=== PATIENT | male | born 1945 | race African-American/Black ===

== ENCOUNTER 2018-01-02 09:18 | Inpatient (IN) | payer OTHER ==
--- NOTE | 2018-01-02 10:09 | PDOC ---
History of Present Illness <anthonytomRowena - Last Filed: 01/02/18 12:58> - History of Present Illness Initial Comments: 01/02/18 10:19 The patient is a 72 year old male, with recent travel from [facility] 4 days ago, with past medical history of hypertension, hyperlipidemia, s/p aortic valve replacement and pacemaker (not on any anticoagulants) who presents to the the ED with complaints of body aches for the past 4 days. As per family member, the patient has been feeling overall weak since his travels with diffuse body aches and a strange taste in his mouth. The patient denies any lightheadedness, dizziness or syncope. Denies any fevers or chills. He additionally reports a 10 pound weight loss over the past few months. While in [facility], he was told he no longer had diabetes and was taken off of Metformin which he ultimately believes has effected his kidney function. He was also told he has anemia but did not receive blood transfusions. He denies any cough, SOB, chest pain, nausea, vomiting, diarrhea, or urinary complaints. The patients family member reports he will be setting him up with a PCP in the area tomorrow. <Sonja Andre - Last Filed: 01/02/18 13:00> - General Chief Complaint: Weakness Stated Complaint: BODY PAIN Time Seen by Provider: 01/02/18 09:46 Past History <anthonytomRowena - Last Filed: 01/02/18 12:58> - Past Medical History COPD: No Other medical history: PPM - Suicide/Smoking/Psychosocial Hx Smoking History: Never smoked Hx Alcohol Use: No Drug/Substance Use Hx: No <Sonja Andre - Last Filed: 01/02/18 13:00> - Past Medical History Allergies/Adverse Reactions: Allergies Allergy/AdvReac Type Severity Reaction Status Date / Time amlodipine Allergy Verified 01/02/18 09:33 lisinopril Allergy Swelling Verified 01/02/18 09:34 Home Medications: Ambulatory Orders Hydralazine HCl 50 mg PO TID 01/02/18 Metoprolol Succinate 25 mg PO DAILY 01/02/18 Simvastatin 20 mg PO HS 01/02/18 Valsartan 320 mg PO DAILY 01/02/18 Review of Systems - Review of Systems Comments:: 01/02/18 10:33 GENERAL/CONSTITUTIONAL: (+) weakness. No fever or chills. HEAD, EYES, EARS, NOSE AND THROAT: No change in vision. No ear pain or discharge. No sore throat. GASTROINTESTINAL: No nausea, vomiting, diarrhea or constipation. GENITOURINARY: No dysuria, frequency, or change in urination. CARDIOVASCULAR: No chest pain or shortness of breath. RESPIRATORY: No cough, wheezing, or hemoptysis. MUSCULOSKELETAL: (+) body aches. SKIN: No rash NEUROLOGIC: No headache, vertigo, loss of consciousness, or change in strength/ sensation. ENDOCRINE: (+) weight loss. No increased thirst. HEMATOLOGIC/LYMPHATIC: No anemia, easy bleeding, or history of blood clots. ALLERGIC/IMMUNOLOGIC: No hives or skin allergy. <Sonja Andre - Last Filed: 01/02/18 13:00> *Physical Exam - Vital Signs Last Vital Signs Temp Pulse Resp BP Pulse Ox 98.1 F 80 16 177/76 99 01/02/18 09:25 01/02/18 09:25 01/02/18 09:25 01/02/18 09:25 01/02/18 09:25 <Rowena Yang - Last Filed: 01/02/18 12:58> - Vital Signs Last Vital Signs Temp Pulse Resp BP Pulse Ox 98.1 F 80 16 177/76 99 01/02/18 09:25 01/02/18 09:25 01/02/18 09:25 01/02/18 09:25 01/02/18 09:25 - Physical Exam Comments: 01/02/18 10:33 GENERAL: Awake, alert, and fully oriented, in no acute distress. Frequent right facial twitch that patient states he has had since age 16 HEAD: No signs of trauma EYES: PERRLA, EOMI, sclera anicteric, conjunctiva clear ENT: Auricles normal inspection, hearing grossly normal, nares patent, oropharynx clear without exudates. Moist mucosa NECK: Normal ROM, supple, no lymphadenopathy, JVD, or masses LUNGS: Breath sounds equal, clear to auscultation bilaterally. No wheezes, and no crackles HEART: Regular rate and rhythm, normal S1 and S2, no murmurs, rubs or gallops ABDOMEN: Soft, nontender, normoactive bowel sounds. No guarding, no rebound. No masses EXTREMITIES: Normal range of motion, no edema. No clubbing or cyanosis. No cords, erythema, or tenderness NEUROLOGICAL: Normal speech, cranial nerves intact, negative pronator drift, 5/ 5 strength in all 4 extremities, normal sensation to light touch in all 4 extremities, normal cerebellar exam, normal gait, normal reflexes and tone SKIN: Warm, Dry, normal turgor, no rashes or lesions noted. <JesJavanvernon - Last Filed: 01/02/18 13:00> Heart Score/ECG Review #1 01/02/18 10:37 Twelve-lead EKG was performed and reviewed by me. Sinus rhythm with first- degree AV block, rate 74. Left axis deviation. T wave inversion in the aVL with T-wave flattening in lead 1. No previous EKGs to compare. <JesJavanvernon - Last Filed: 01/02/18 13:00> ED Treatment Course - LABORATORY CBC & Chemistry Diagram: 01/02/18 10:55 01/02/18 10:55 - RADIOLOGY Radiograph Interpretation: 01/02/18 10:32 Chest X-ray as reviewed by Dr. Hernandez reports no acute pathology. <anthonytomRowena - Last Filed: 01/02/18 12:58> - LABORATORY CBC & Chemistry Diagram: 01/02/18 10:55 01/02/18 10:55 - RADIOLOGY Radiology Studies Ordered: Category Date Time Status CHEST X-RAY PORTABLE* [RAD] Stat Radiology 01/02/18 09:56 Ordered <JesSonja - Last Filed: 01/02/18 13:00> Medical Decision Making - Medical Decision Making Phone call placed to Dr. Carli Barrera. Awaiting call back. Microblog sent to [facility]. Awaiting call back. 01/02/18 12:21 Phone call returned by Dr. Crawley and case was discussed. 01/02/18 12:43 Phone call returned by Luana Salas, case was discussed. <anthonytomRowena - Last Filed: 01/02/18 12:58> - Medical Decision Making 01/02/18 10:05 72yo M hx HTN, HL, PPM, AVR presents to the ED with generalized weakness for 4 days a/w bodyaches. Bp elevated, otherwise vs wnl. Exam with trace LE edema, otherwise unremarkable. Ddx is wide and includes but not limited to ACS vs infection vs metabolic disarray vs anemia. Plan -labs -CXR -UA -EKG -reassess Laboratory Results - last 24 hr 01/02/18 01/02/18 01/02/18 10:55 10:55 11:00 WBC 6.9 RBC 3.23 L Hgb 8.7 L Hct 26.2 L MCV 81.1 MCH 27.0 MCHC 33.2 RDW 14.3 Plt Count 112 L MPV 8.0 Absolute Neuts (auto) 4.5 Neutrophils % 64.2 Lymphocytes % 24.6 Monocytes % 9.4 Eosinophils % 1.4 Basophils % 0.4 Nucleated RBC % 0 Sodium 133 L Potassium 5.3 H Chloride 101 Carbon Dioxide 21 Anion Gap 11 BUN 32 H Creatinine 2.4 H Creat Clearance w eGFR 26.82 Random Glucose 91 Calcium 8.4 L Total Bilirubin 0.4 AST 74 H ALT 41 Alkaline Phosphatase 218 H Troponin I < 0.02 Total Protein 7.7 Albumin 3.1 L Urine Color Yellow Urine Appearance Clear Urine pH 7.0 Ur Specific [place] 1.008 Urine Protein 2+ H Urine Glucose (UA) Negative Urine Ketones Negative Urine Blood 1+ H Urine Nitrite Negative Urine Bilirubin Negative Urine Urobilinogen Negative Ur Leukocyte Esterase Negative Urine WBC (Auto) 1 Urine RBC (Auto) 1 01/02/18 12:13 Creatinine 2.4. Pt unsure of his baseline creatinine. Has no PMD, has never seen a press bucker RF may be etiology of weakness and bodyaches WIll admit to obs, c/s neuro Hospitalist microblogged for admission 01/02/18 12:[address] Crawley Recommends renal US which has been ordered Awaiting hospitalis call back 01/02/18 12:59 Case discussed with RAMYA Salas, pt admitted to obs under Dr. Hernández Case discussed in detail with admitting physician including history, physical exam and ancillary studies. Admitting physician has assumed care for the patient, will follow all pending diagnostics and will complete the evaluation and treatment. <Sonja Andre - Last Filed: 01/02/18 13:00> *DC/Admit/Observation/Transfer - Attestations Scribe Attestion: 01/02/18 10:32 Documentation prepared by Rowena Yang, acting as medical fee clerk for Sonja Andre MD. <Rowena Yang - Last Filed: 01/02/18 12:58> - Discharge Dispostion Decision to Admit order: Yes - Attestations Physician Attestion: 01/02/18 13:00 I, Dr. Sonja Andre MD, attest that this document has been prepared under my direction and personally reviewed by me in its entirety. I further attest, that it accurately reflects all work, treatment, procedures and medical decision -making performed by me. <Sonja Andre - Last Filed: 01/02/18 13:00> Diagnosis at time of Disposition: Renal failure, Weakness, Anemia - Discharge Dispostion Condition at time of disposition: Stable - Referrals Referrals: Rey Farley MD [Primary Care Provider] - - Patient Instructions - Post Discharge Activity
[2018-01-02 11:06] LABS: BASO % 0.4 % (0-2.0); EOS % 1.4 % (0-4.5); HEMATOCRIT 26.2 % (35.4-49); HEMOGLOBIN 8.7 GM/dL (11.7-16.9); LYMPH % 24.6 % (8-40); MCHC 33.2 g/dl (32.0-35.9); MEAN CELL VOLUME 81.1 fl (80-96); MONO % 9.4 % (3.8-10.2); NEUT % 64.2 % (42.8-82.8); PLATELET COUNT 112 K/MM3 (134-434); RBC 3.23 M/mm3 (4.00-5.60); RDW 14.3 % (11.9-15.9); WHITE BLOOD COUNT 6.9 K/mm3 (4.0-10.0)
[2018-01-02 11:24] LABS: URINE APPEARANCE CLEAR; URINE BILIRUBIN NEGATIVE (<2.0 mg/dL); URINE GLUCOSE (UA) NEGATIVE (NEGATIVE); URINE KETONE NEGATIVE (NEGATIVE); URINE LEUK ESTERASE NEGATIVE (NEGATIVE); URINE NITRITE NEGATIVE (NEGATIVE); URINE UROBILINOGEN NEGATIVE mg/dL (0.2-1.0)
[2018-01-02 11:26] LABS: URINE COLOR YELLOW; URINE PROTEIN 2+ (NEGATIVE)
[2018-01-02 11:55] LABS: ALBUMIN 3.1 g/dl (3.4-5.0); ANION GAP 11 (8-16); BLOOD UREA NITROGEN 32 mg/dL (7-18); CALCIUM 8.4 mg/dL (8.5-10.1); CHLORIDE 101 mmol/L (98-107); CO2 21 mmol/L (21-32); CREATININE 2.4 mg/dL (0.7-1.3); GLUCOSE,RANDOM 91 mg/dL (74-106); SGPT/ALT 41 U/L (12-78); SODIUM 133 mmol/L (136-145)
[2018-01-02 11:59] LABS: ALK PHOS 218 U/L (45-117); BILIRUBIN,TOTAL 0.4 mg/dL (0.2-1.0); TOT PROT 7.7 g/dl (6.4-8.2)
[2018-01-02 12:00] LABS: POTASSIUM 5.3 mmol/L (3.5-5.1)
[2018-01-02 12:01] LABS: SGOT/AST 74 U/L (15-37)
[2018-01-02] MEDS ORDERED: SODIUM CHLORIDE 500 ML IV STA (12:56)
[2018-01-02] MEDS ORDERED: SODIUM CHLORIDE 1,000 ML IV SCH (13:00)
--- NOTE | 2018-01-02 13:00 | HP ---
CHIEF COMPLAINT: Body aches PCP: None HISTORY OF PRESENT ILLNESS: The patient is a 72 year old male, with recent travel from [facility] 4 days ago, with past medical history of hypertension, hyperlipidemia, s/p aortic valve replacement and pacemaker (not on any anticoagulants) who presents to the the ED with complaints of body aches for the past 4 days. As per family member, the patient has been feeling overall weak since his travels with diffuse body aches and a strange taste in his mouth. The patient denies any lightheadedness, dizziness or syncope. Denies any fevers or chills. He additionally reports a 10 pound weight loss over the past few months. While in [facility], he was told he no longer had diabetes and was taken off of metformin. He was also told he has a problem with his kidneys. He denies cough, SOB, chest pain, nausea, vomiting, diarrhea, or urinary complaints. Denies fever, sweats, chills. ER course was notable for: (1) Hgb 8.7, Platelets 112k, Na 133, K 5.3 (2) BUN/Cr 32/2.4 (3) BP 177/76 Recent Travel: From [facility] four days ago PAST MEDICAL HISTORY: Hypertension Hyperlipidemia PAST SURGICAL HISTORY: Aortic valve replacement and subsequent revision surgery for leakage Permanent pacemaker (does not know reason why) Social History: Smoking: quit 1971 Alcohol: rare Drugs: never Family History: retired worker for [employer]; retired to [facility] and [employer] Allergies amlodipine Allergy (Verified 01/02/18 09:33) tendon damage heels lisinopril Allergy (Verified 01/02/18 09:34) Swelling mouth swelling HOME MEDICATIONS: Home Medications Medication Instructions Recorded Hydralazine HCl 50 mg PO TID 01/02/18 Metoprolol Succinate 25 mg PO DAILY 01/02/18 Simvastatin 20 mg PO HS 01/02/18 Valsartan 320 mg PO DAILY 01/02/18 REVIEW OF SYSTEMS CONSTITUTIONAL: +malaise Absent: fever, chills, diaphoresis, generalized weakness, loss of appetite, weight change HEENT: Absent: rhinorrhea, nasal congestion, throat pain, throat swelling, difficulty swallowing, mouth swelling, ear pain, eye pain, visual changes CARDIOVASCULAR: Absent: chest pain, syncope, palpitations, irregular heart rate, lightheadedness , peripheral edema RESPIRATORY: Absent: cough, shortness of breath, dyspnea with exertion, orthopnea, wheezing, stridor, hemoptysis GASTROINTESTINAL: Absent: abdominal pain, abdominal distension, nausea, vomiting, diarrhea, constipation, melena, hematochezia GENITOURINARY: Absent: dysuria, frequency, urgency, hesitancy, hematuria, flank pain, genital pain MUSCULOSKELETAL: +body aches Absent: myalgia, arthralgia, joint swelling, back pain, neck pain SKIN: Absent: rash, itching, pallor HEMATOLOGIC/IMMUNOLOGIC: Absent: easy bleeding, easy bruising, lymphadenopathy, frequent infections ENDOCRINE: Absent: unexplained weight gain, unexplained weight loss, heat intolerance, cold intolerance NEUROLOGIC: Absent: headache, focal weakness or paresthesias, dizziness, unsteady gait, seizure, mental status changes, bladder or bowel incontinence PSYCHIATRIC: Absent: anxiety, depression, suicidal or homicidal ideation, hallucinations. PHYSICAL EXAMINATION Vital Signs - 24 hr 01/02/18 01/02/18 09:25 10:59 Temperature 98.1 F Pulse Rate 80 Respiratory 16 Rate Blood Pressure 177/76 O2 Sat by Pulse 99 99 Oximetry (%) GENERAL: Awake, alert, and fully oriented, in no acute distress. HEAD: Normal with no signs of trauma. EYES: Pupils equal, round and reactive to light, extraocular movements intact, sclera anicteric, conjunctiva clear. No lid lag. EARS, NOSE, THROAT: Ears normal, nares patent, oropharynx clear without exudates. Moist mucous membranes. NECK: Normal range of motion, supple without lymphadenopathy, JVD, or masses. LUNGS: Breath sounds equal, clear to auscultation bilaterally. No wheezes, and no crackles. No accessory muscle use. HEART: Regular rate and rhythm, normal S1 and S2 without murmur, rub or gallop. ABDOMEN: Soft, nontender, not distended, normoactive bowel sounds, no guarding, no rebound, no masses. No hepatomegaly or splenomegaly. MUSCULOSKELETAL: Normal range of motion at all joints. No bony deformities or tenderness. No CVA tenderness. UPPER EXTREMITIES: 2+ pulses, warm, well-perfused. No cyanosis. No clubbing. No peripheral edema. LOWER EXTREMITIES: 2+ pulses, warm, well-perfused. No calf tenderness. No peripheral edema. NEUROLOGICAL: Cranial nerves II-XII intact. Normal speech. Normal gait. PSYCHIATRIC: Cooperative. Good eye contact. Appropriate mood and affect. SKIN: Warm, dry, normal turgor, no rashes or lesions noted, normal capillary refill. Laboratory Results - last 24 hr 01/02/18 01/02/18 01/02/18 10:55 10:55 11:00 WBC 6.9 RBC 3.23 L Hgb 8.7 L Hct 26.2 L MCV 81.1 MCH 27.0 MCHC 33.2 RDW 14.3 Plt Count 112 L MPV 8.0 Absolute Neuts (auto) 4.5 Neutrophils % 64.2 Lymphocytes % 24.6 Monocytes % 9.4 Eosinophils % 1.4 Basophils % 0.4 Nucleated RBC % 0 Sodium 133 L Potassium 5.3 H Chloride 101 Carbon Dioxide 21 Anion Gap 11 BUN 32 H Creatinine 2.4 H Creat Clearance w eGFR 26.82 Random Glucose 91 Calcium 8.4 L Total Bilirubin 0.4 AST 74 H ALT 41 Alkaline Phosphatase 218 H Creatine Kinase Troponin I < 0.02 Total Protein 7.7 Albumin 3.1 L Urine Color Yellow Urine Appearance Clear Urine pH 7.0 Ur Specific [place] 1.008 Urine Protein 2+ H Urine Glucose (UA) Negative Urine Ketones Negative Urine Blood 1+ H Urine Nitrite Negative Urine Bilirubin Negative Urine Urobilinogen Negative Ur Leukocyte Esterase Negative Urine WBC (Auto) 1 Urine RBC (Auto) 1 01/02/18 12:26 WBC RBC Hgb Hct MCV MCH MCHC RDW Plt Count MPV Absolute Neuts (auto) Neutrophils % Lymphocytes % Monocytes % Eosinophils % Basophils % Nucleated RBC % Sodium Potassium Chloride Carbon Dioxide Anion Gap BUN Creatinine Creat Clearance w eGFR Random Glucose Calcium Total Bilirubin AST ALT Alkaline Phosphatase Creatine Kinase 180 Troponin I Total Protein Albumin Urine Color Urine Appearance Urine pH Ur Specific [place] Urine Protein Urine Glucose (UA) Urine Ketones Urine Blood Urine Nitrite Urine Bilirubin Urine Urobilinogen Ur Leukocyte Esterase Urine WBC (Auto) Urine RBC (Auto) ASSESSMENT/PLAN: 72 year-old male, with recent travel from [place] 4 days ago, with a PMH significant for HTN, HLD, NIDDM, s/p aortic valve replacement, and s/p PPM. Placed on observation for generalized weakness and body aches x 4 days. 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 Full code. Visit type - Emergency Visit Emergency Visit: Yes ED Registration Date: 01/02/18 Care time: The patient presented to the Emergency Department on the above date and was hospitalized for further evaluation of their emergent condition. - New Patient This patient is new to me today: Yes Date on this admission: 01/02/18 - Critical Care Critical Care patient: No Hospitalist Screening - Colonoscopy Questionnaire Colonoscopy Questionnaire: Colonoscopy Questionnaire - Patient: 50 - 75 years old and never had a screening colonoscopy: Unknown History of colon or rectal polyps, or CA: No History of IBD, Crohn's disease or UC: No History of abdominal radiation therapy as a child: No - Relative: 1 with colon or rectal CA, or polyps at age 60 or younger: Unknown Colon or rectal CA diagnosed at age 45 or younger: Unknown Multiple relatives with colon or rectal CA: Unknown - Outcome: Screening Result: Negative Screen
[2018-01-02] MEDS ORDERED: HEPARIN NA (PORCINE) 5,000 UNITS/ML 1ML VIAL ONE (14:28)
[2018-01-02] MEDS ORDERED: hydrALAZINE HCL 25 MG TABLET (FP) ONE (14:28)
[2018-01-02] MEDS: metoPROLOL SUCCINATE 25 MG TAB.SR.24H (FP) PO SCH (14:51)
[2018-01-02] MEDS: hydrALAZINE HCL 50 MG TABLET (FP) PO SCH ×2 (14:51→22:30)
[2018-01-02] MEDS: HEPARIN NA (PORCINE) 5,000 UNITS/ML 1ML VIAL SQ SCH ×2 (14:51→22:30)
[2018-01-02] MEDS: INSULIN SLIDING SCALE (NOVOLOG) 1 VIAL SQ SCH ×2 (16:58→22:30)
--- NOTE | 2018-01-02 19:14 | EKG ---
Test Reason : Blood Pressure : / mmHG Vent. Rate : 074 BPM Atrial Rate : 074 BPM P-R Int : 248 ms QRS Dur : 116 ms QT Int : 418 ms P-R-T Axes : 053 -53 086 degrees QTc Int : 463 ms SINUS RHYTHM WITH 1ST DEGREE A-V BLOCK POSSIBLE LEFT ATRIAL ENLARGEMENT LEFT AXIS DEVIATION LEFT VENTRICULAR HYPERTROPHY WITH QRS WIDENING NONSPECIFIC T WAVE ABNORMALITY PROLONGED QT ABNORMAL ECG NO PREVIOUS ECGS AVAILABLE Confirmed by MD VANDANA, RACHEL ([id number]) on 01/02/2018 7:14:25 PM Referred By: Confirmed By:RACHEL ROSS MD
[2018-01-02] MEDS ORDERED: ATORVASTATIN CA 10 MG TABLET (FP) ONE (21:23)
[2018-01-02] MEDS ORDERED: PATIENT'S OWN MEDICATION (NON-FORMULARY) (Simvastatin [Simvastatin] 20 MG) PO SCH (22:00)
[2018-01-02] MEDS: ATORVASTATIN CA 10 MG TABLET (FP) PO SCH (22:30)
[2018-01-03 06:38] LABS: BASO % 0.4 % (0-2.0); EOS % 1.5 % (0-4.5); HEMATOCRIT 22.1 % (35.4-49); HEMOGLOBIN 7.6 GM/dL (11.7-16.9); LYMPH % 29.4 % (8-40); MCH 27.7 pg (25.7-33.7); MCHC 34.4 g/dl (32.0-35.9); MEAN CELL VOLUME 80.5 fl (80-96); MEAN PLT VOLUME 7.6 fl (7.5-11.1); MONO % 11.1 % (3.8-10.2); NEUT % 57.6 % (42.8-82.8); PLATELET COUNT 90 K/MM3 (134-434); RBC 2.74 M/mm3 (4.00-5.60); RDW 14.1 % (11.9-15.9); WHITE BLOOD COUNT 6.4 K/mm3 (4.0-10.0)
[2018-01-03 06:59] LABS: ALBUMIN 2.7 g/dl (3.4-5.0); ANION GAP 8 (8-16); BILIRUBIN,TOTAL 0.3 mg/dL (0.2-1.0); BLOOD UREA NITROGEN 33 mg/dL (7-18); CALCIUM 7.7 mg/dL (8.5-10.1); CHLORIDE 104 mmol/L (98-107); CO2 25 mmol/L (21-32); CREATININE 2.1 mg/dL (0.7-1.3); GLUCOSE,RANDOM 87 mg/dL (74-106); MAGNESIUM 1.8 mg/dL (1.8-2.4); PHOSPHOROUS 3.7 mg/dL (2.5-4.9); POTASSIUM 3.9 mmol/L (3.5-5.1); SGOT/AST 42 U/L (15-37); SGPT/ALT 35 U/L (12-78); SODIUM 137 mmol/L (136-145); TOT PROT 6.4 g/dl (6.4-8.2)
[2018-01-03] MEDS: HEPARIN NA (PORCINE) 5,000 UNITS/ML 1ML VIAL SQ SCH (06:59)
[2018-01-03] MEDS: hydrALAZINE HCL 50 MG TABLET (FP) PO SCH ×3 (06:59→21:59)
[2018-01-03] MEDS: INSULIN SLIDING SCALE (NOVOLOG) 1 VIAL SQ SCH ×4 (06:59→21:59)
[2018-01-03 07:00] LABS: ALK PHOS 194 U/L (45-117)
[2018-01-03] MEDS ORDERED: metoPROLOL SUCCINATE 25 MG TAB.SR.24H (FP) PO SCH (10:00)
[2018-01-03] MEDS: metoPROLOL SUCCINATE 25 MG TAB.SR.24H (FP) PO SCH (10:36)
[2018-01-03 11:22] LABS: HEMATOCRIT 27.1 % (35.4-49); MCH 27.1 pg (25.7-33.7); MCHC 33.4 g/dl (32.0-35.9); MEAN CELL VOLUME 81.2 fl (80-96); MEAN PLT VOLUME 7.6 fl (7.5-11.1); PLATELET COUNT 100 K/MM3 (134-434); RBC 3.33 M/mm3 (4.00-5.60); RDW 14.6 % (11.9-15.9); WHITE BLOOD COUNT 6.9 K/mm3 (4.0-10.0)
--- NOTE | 2018-01-03 11:24 | CON.GI ---
Consult Consult Specialty:: GI Referred by:: Hospitalist Service Reason for Consultation:: Anemia - History of Present Illness Chief Complaint: "I felt weak" History of Present Illness: 72M admitted through [facility] ER for evaluation of fatigue. He lives in [facility] and returned to ID this past as he was visiting his family. he explains that he felt fatigued, prompting his family to bring him to the ER. In the ER yesterday he was noted to have a Hgb of 8.7, repeated 7.6 this morning. He was also noted to be thrombocytopenic with platelet count of 90K. Alkaline phosphatase was elevated as well and abdominal US revealed a contracted GB ( patient was not fasting) with small amount of perihepatic ascites. The CBD and liver appeared grossly unremarkable. He cannot have an MRI/MRCP as he has a permanent pacemaker. He denies any known history of liver disease, IVDU or He denies focal GI complaints. He states having a healthy appetite. He denies recent rectal bleeding / melena or change in bopwel habits. He believes that he had an EGD/Colonoscopy in Mar 2016 or 2016 for evaluation of vomiting of blood and rectal bleeding and that they were both unrevealing. He believes that he lost 10 pounds in 6 months. He knows about having a "kidney problem". His sister has a history of colon cancer. He was on metformin and "a blood pressure medication" up until they were discontinued 10/01. Son present at bedside. - History Source History Provided By: Patient, Family Member - Past Medical History Cardio/Vascular: Yes: Other (Aortic valve disease) - Past Surgical History Past Surgical History: Yes: Permanent Pacemaker (Placed secondary to A. Fib per patient's son), Valve Replacement (Aortic valve in the : porcine jitendra that was repaired 24 hours after initial surgery with bovine tissue.) - Alcohol/Substance Use Hx Alcohol Use: No - Smoking History Smoking history: Never smoked - Social History Usual Living Arrangement: Alone (Lives in [facility]) ADL: Independent Occupation: Retired: worked for [employer] of : Other ([facility]) Came to [place]year[place] 1963 History of Recent Travel: Yes ([facility]. Returned to 12/30) Home Medications - Allergies Allergies/Adverse Reactions: Allergies Allergy/AdvReac Type Severity Reaction Status Date / Time amlodipine Allergy Verified 01/02/18 09:33 lisinopril Allergy Swelling Verified 01/02/18 09:34 - Home Medications Home Medications: Ambulatory Orders Hydralazine HCl 50 mg PO TID 01/02/18 Metoprolol Succinate 25 mg PO DAILY 01/02/18 Simvastatin 20 mg PO HS 01/02/18 Valsartan 320 mg PO DAILY 01/02/18 Family Disease History - Family Disease History Family Disease History: Other: Father (: did not have relationshio), Mother (: 87: unclear causes), Sister (2, 1 with h/o colon cancer, DM II), Son (3, healthy), Daughter (1, healthy) Review of Systems - Review of Systems Constitutional: reports: Unintentional Wgt. Loss, Weakness. denies: Chills, Diaphoresis (Denies night sweats), Fever, Loss of Appetite Cardiovascular: denies: Chest Pain, Shortness of Breath Respiratory: denies: Wheezing Gastrointestinal: denies: Abdominal Pain, Constipation, Diarrhea, Indigestion, Melena, Nausea, Rectal Bleeding, Vomiting, Vomiting Blood Genitourinary: reports: Frequency Physical Exam-GI Vital Signs: Vital Signs Temperature 99 F 01/03/18 09:06 Pulse Rate 78 01/03/18 09:06 Respiratory Rate 20 01/03/18 09:06 Blood Pressure 157/67 01/03/18 09:06 O2 Sat by Pulse Oximetry (%) 100 01/02/18 21:00 Constitutional: Yes: Calm Eyes: No: Sclera Icterus Cardiovascular: Yes: Regular Rate and Rhythm, Murmur (holosystolic murmur at the LSB/RSB) Respiratory: Yes: CTA Bilaterally Gastrointestinal Inspection: No: Distention, Scars ...Auscultate: Yes: Normoactive Bowel Sounds ...Palpate: No: Hepatomegaly, Splenomegaly, Tenderness ...Percussion: No: Tympanitic ...Rectal Exam: Yes: Other (No external lesions, no masses, scant light brown stool guaiac negative, 2+ prostate.) Edema: No (No LE edema) Neurological: Yes: Alert, Oriented, Other (right eye twitch) Labs: CBC, BMP 01/03/18 06:10 01/03/18 06:10 Hepatic Panel Total Bilirubin 0.3 mg/dL (0.2-1.0) 01/03/18 06:10 AST 42 U/L (15-37) H D 01/03/18 06:10 ALT 35 U/L (12-78) 01/03/18 06:10 Alkaline Phosphatase 194 U/L (45-117) H D 01/03/18 06:10 Albumin 2.7 g/dl (3.4-5.0) L 01/03/18 06:10 Imaging - Results X-ray: Report Reviewed Ultrasound: Report Reviewed Problem List - Problems (1) Anemia Assessment/Plan: Normocytic anemia with concomitant thrombocytopenia No known history of liver disease Guaiac negative on physical exam today without overt history of bleeding or change in bowel habits Advise: Iron studies (ordered) Hematology evaluation Did discuss possible EGD/Colonoscopy if evidence of iron deficiency and heme work-up unrevealing. We discussed potential risks of the procedures like but notlimited to bleeding, perforation requiring surgery to repair, infection and sedation medication effects all of which could be potentially life threatening. He has agreed to the procedures if they were felt to be clinically necessary. He son was present during our discussion. Please obtain records froim his Recent GI evaluation in [place] Code(s): D64.9 - ANEMIA, UNSPECIFIED Qualifiers: Anemia type: unspecified type Qualified Code(s): D64.9 - Anemia, unspecified (2) Abnormal liver function tests Assessment/Plan: Predominantly elevated alkaline phosphatase. Asymptomatic Ordered GGT Hepatitis A/B panel ordered for AM Ordered PT/INR as well as PTT Ordered CT scan of the abdomen and pelvis with PO contrast only given renal insufficiency Given enlarged prostate noted on exam plus body ache complaints, exclude bone source per primary team Code(s): R94.5 - ABNORMAL RESULTS OF LIVER FUNCTION STUDIES (3) Murmur, cardiac Assessment/Plan: Bioprosthetic AVR was multiple years prior. Uncertain of present status of aortic valve function Cardiology evaluation Will need cardiology clearance prior to any potential procedures Code(s): R01.1 - CARDIAC MURMUR, UNSPECIFIED
[2018-01-03 11:32] LABS: INR 1.12 (0.83-1.09); PROTHROMBIN TIME (PATIENT) 12.6 SEC (9.7-13.0)
[2018-01-03 11:35] LABS: ACTIVATED PTT 33.3 SECONDS (25.2-36.5)
--- NOTE | 2018-01-03 11:39 | CONSULT ---
Consult - text type - Consultation Consultation Note: Renal Consult for MO vs. CKD This is a 72 year old gentleman with Hx of Hypertension, Hyperlipidemia, CKD, Aortic Valve Replacement, PPM who presented with diffuse body aches and weakness and found to have anemia and elevated BUN/Cr. Pt reports being told in the past that he has CKD but could not say what stage. He was recently taken off Metfmorin. Denies any recent NSAID use. No recent contrast nephropathy. Has long hx of DM but has been better recently. No Hx of kidney stones. ? ARB use at home. No flank pain, hematuria, dysuria, rash, recent abx use. Making urine w /o obstructive symptoms. PMhx: as above Allergies: NKDA Family Hx: NC Social Hx: No T/A/D ROS: as per HPI Home Medications Medication Instructions Recorded Hydralazine HCl 50 mg PO TID 01/02/18 Metoprolol Succinate 25 mg PO DAILY 01/02/18 Simvastatin 20 mg PO HS 01/02/18 Valsartan 320 mg PO DAILY 01/02/18 Vital Signs Temperature 99 F 01/03/18 09:06 Pulse Rate 78 01/03/18 09:06 Respiratory Rate 20 01/03/18 09:06 Blood Pressure 157/67 01/03/18 09:06 O2 Sat by Pulse Oximetry (%) 100 01/02/18 21:00 Intake & Output 12/31/17 01/01/18 01/02/18 01/03/18 23:59 23:59 23:59 23:59 Intake Total 200 1000 Balance 200 1000 Weight 69.218 kg NAD awake and alert neck supple, no JVD, MMM RRR, + murmur CTA, no rales or wheeze soft NT/ND, no rebound or guarding no LE edema, clubbing or cyanosis No bladder distension CBC, BMP 01/03/18 10:12 01/03/18 06:10 Laboratory Tests 01/02/18 01/02/18 01/03/18 10:55 11:00 00:00 MCV Creatinine 2.4 H Calcium Phosphorus Magnesium Albumin Urine Protein 2+ H Urine Blood 1+ H Urine RBC (Auto) 1 U Random Total Protein Ur Random Sodium 103 Ur Random Urea Nitrogn Urine Creatinine JAYDE Screen 01/03/18 01/03/18 01/03/18 00:00 00:00 00:00 MCV Creatinine Calcium Phosphorus Magnesium Albumin Urine Protein Urine Blood Urine RBC (Auto) U Random Total Protein 175 H Ur Random Sodium Ur Random Urea Nitrogn 440 Urine Creatinine 59.1 JAYDE Screen 01/03/18 01/03/18 01/03/18 06:10 06:10 10:12 MCV 81.2 Creatinine 2.1 H Calcium 7.7 L Phosphorus 3.7 Magnesium 1.8 Albumin 2.7 L Urine Protein Urine Blood Urine RBC (Auto) U Random Total Protein Ur Random Sodium Ur Random Urea Nitrogn Urine Creatinine JAYDE Screen Pending Current Medications Atorvastatin Calcium (Lipitor -) 10 mg PO HS [facility] Last Admin: 01/02/18 22:30 Dose: 10 mg Hydralazine HCl (Apresoline -) 50 mg PO TID [facility] Last Admin: 01/03/18 06:59 Dose: 50 mg Sodium Chloride (Normal Saline -) 1,000 mls @ 50 mls/hr IV ASDIR [facility] Stop: 01/03/18 12:58 Last Admin: 01/02/18 15:13 Dose: 50 mls/hr Insulin Aspart (Novolog Vial Sliding Scale -) 1 vial SQ ACHS [facility]; Protocol Last Admin: 01/03/18 11:26 Dose: Not Given Metoprolol Succinate (Toprol Xl -) 25 mg PO DAILY [facility] Last Admin: 01/03/18 10:36 Dose: 25 mg 72 year old gentleman with Hx of Hypertension, Hyperlipidemia, CKD, Aortic Valve Replacement, PPM who presented with diffuse body aches and weakness and found to have anemia and elevated BUN/Cr. #Acute on Chronic Renal Insufficiency #CKD #Hypertension #Anemia #Abnormal LFT's Renal function sligly improved from Cr 2.4 to 2.1 Urine studies show subnephrotic range proteinuria and elevated FeNa and FeUrea etiology of MO unclear may be mild volume depletion in setting of signficnat underlying CKD Would continue IVF hydration for 24 hours and trend BUN/Cr hold ARB/DIURETICS Start atenolol in addition to Hydralazine for additional BP control Agree with checking JAYDE given Hydralazine use Check SPEP as well GI following Check iron studies If renal function improved can be discharged from renal perspective with outpatient follow up Thank you Dov Crawley DO
[2018-01-03] MEDS ORDERED: SODIUM CHLORIDE 1,000 ML IV SCH (13:15)
--- NOTE | 2018-01-03 16:19 | PN ---
Progress Note (short form) - Note Progress Note: Subjective: The patient was seen and examined at the bedside, he has no complaints at this time. Current Medications Generic Name Dose Route Start Last Admin Trade Name Carmen PRN Reason Stop Dose Admin Atorvastatin Calcium 10 mg 01/02/18 22:00 01/02/18 22:30 Lipitor - PO 10 mg HS LOVELY Administration Hydralazine HCl 50 mg 01/02/18 14:00 01/03/18 13:58 Apresoline - PO 50 mg TID LOVELY Administration Sodium Chloride 1,000 mls @ 83 mls/hr 01/03/18 13:15 01/03/18 13:57 Normal Saline - IV 83 mls/hr ASDIR LOVELY Administration Insulin Aspart 1 vial 01/02/18 16:30 01/03/18 11:26 Novolog Vial Sliding Scale - SQ Not Given ACHS LOVELY Protocol Metoprolol Succinate 25 mg 01/02/18 14:00 01/03/18 10:36 Toprol Xl - PO 25 mg DAILY LOVELY Administration Objective: Vital Signs Period Temp Pulse Resp BP Sys/Burnett Pulse Ox Last 24 Hr 98.4 F-99.6 F 78-83 18-20 145-187/65-91 100-100 Physical Exam: General: NAD, A&Ox3 Lungs: CTA bilaterally Heart: RRR, S1S2, +murmur Abd: Soft, non-tender, non-distended. Normoactive bowel sounds Ext: Warm, well-perfused CBCD WBC 6.9 K/mm3 (4.0-10.0) 01/03/18 10:12 RBC 3.33 M/mm3 (4.00-5.60) L 01/03/18 10:12 Hgb 9.0 GM/dL (11.7-16.9) L 01/03/18 10:12 Hct 27.1 % (35.4-49) L D 01/03/18 10:12 MCV 81.2 fl (80-96) 01/03/18 10:12 MCHC 33.4 g/dl (32.0-35.9) 01/03/18 10:12 RDW 14.6 % (11.9-15.9) 01/03/18 10:12 Plt Count 100 K/MM3 (134-434) L 01/03/18 10:12 MPV 7.6 fl (7.5-11.1) 01/03/18 10:12 CMP Sodium 137 mmol/L (136-145) 01/03/18 06:10 Potassium 3.9 mmol/L (3.5-5.1) D 01/03/18 06:10 Chloride 104 mmol/L (98-107) 01/03/18 06:10 Carbon Dioxide 25 mmol/L (21-32) 01/03/18 06:10 Anion Gap 8 (8-16) 01/03/18 06:10 BUN 33 mg/dL (7-18) H 01/03/18 06:10 Creatinine 2.1 mg/dL (0.7-1.3) H 01/03/18 06:10 Creat Clearance w eGFR 31.29 (>60) 01/03/18 06:10 Random Glucose 87 mg/dL (74-106) 01/03/18 06:10 Calcium 7.7 mg/dL (8.5-10.1) L 01/03/18 06:10 Total Bilirubin 0.3 mg/dL (0.2-1.0) 01/03/18 06:10 AST 42 U/L (15-37) H D 01/03/18 06:10 ALT 35 U/L (12-78) 01/03/18 06:10 Alkaline Phosphatase 194 U/L (45-117) H D 01/03/18 06:10 Total Protein 6.4 g/dl (6.4-8.2) 01/03/18 06:10 Albumin 2.7 g/dl (3.4-5.0) L 01/03/18 06:10 CARDIAC ENZYMES Creatine Kinase 180 IU/L (39-308) 01/02/18 12:26 Troponin I < 0.02 ng/ml (0.00-0.05) 01/02/18 10:55 Microbiology 01/02/18 14:16 Blood - Peripheral Venous Blood Culture - Preliminary NO GROWTH OBTAINED AFTER 24 HOURS, INCUBATION TO CONTINUE FOR 4 DAYS. 01/02/18 14:16 Blood - Peripheral Venous Blood Culture - Preliminary NO GROWTH OBTAINED AFTER 24 HOURS, INCUBATION TO CONTINUE FOR 4 DAYS. 01/02/18 11:00 Urine - Urine Clean Catch Urine Culture - Final NO GROWTH OBTAINED 01/02/18 16:30 Nasopharyngeal Swab Influenza Types A,B Antigen - Final 01/02/18 16:30 Nasopharyngeal Swab - Final Assessment: This is a 72 year old male with PMHx of HTN, HLD, NIDDM, s/p aortic valve replacement, PPM, who presented to the ED with generalized weakness and body aches Plan: 1) Anemia - Patient's pcp, Dr. Ely in [place] reports the patient had a recent GI bleed for which he required PRBC transfusion - F/u iron studies - Guiac negative per GI - F/u hematology consult - Appreciate GI consult: possible EDG/colonoscopy 2) Thrombocytopenia - Chronic - Labs from pcp's office show platelet of 74 on 08/05/17 - F/u hematology consult 3) Abnormal liver function tests - F/u GGT - F/u hepatitis panel - F/u CTAP 4) Enlarged prostate - Per GI evaluation - PSA 1.1 on 08/05/17 5) CKD - Patient Cr 08/05/17 was 3.[address]. Ely, he was being worked up for CKD and they were just monitoring his kidney function at this time - Cr continues to improve 2.4->2.1 - Discussed with Dr. Crawley - F/u Spep 6) DM - BGM ACHS - ISS ACHS Visit type - Emergency Visit Emergency Visit: Yes ED Registration Date: 01/02/18 Care time: The patient presented to the Emergency Department on the above date and was hospitalized for further evaluation of their emergent condition. - New Patient This patient is new to me today: Yes Date on this admission: 01/03/18 - Critical Care Critical Care patient: No
[2018-01-03] MEDS: ATORVASTATIN CA 10 MG TABLET (FP) PO SCH (21:59)
[2018-01-04 06:06] LABS: SERUM IRON SATURATION 12 % (15-55); TOTAL IRON BINDING CAPACITY 289 ug/dL (250-450); UIBC 255 ug/dL (111-343)
[2018-01-04 06:06] LABS: HEP.C VIRUS AB 0.1 s/co ratio (0.0-0.9)
[2018-01-04] MEDS: hydrALAZINE HCL 50 MG TABLET (FP) PO SCH ×3 (06:12→21:22)
[2018-01-04] MEDS: INSULIN SLIDING SCALE (NOVOLOG) 1 VIAL SQ SCH ×4 (06:12→21:22)
[2018-01-04 07:38] LABS: BASO % 0.3 % (0-2.0); EOS % 1.6 % (0-4.5); HEMOGLOBIN 7.9 GM/dL (11.7-16.9); LYMPH % 32.2 % (8-40); MCH 26.7 pg (25.7-33.7); MCHC 32.9 g/dl (32.0-35.9); MEAN PLT VOLUME 7.8 fl (7.5-11.1); MONO % 11.2 % (3.8-10.2); NEUT % 54.7 % (42.8-82.8); PLATELET COUNT 80 K/MM3 (134-434); RBC 2.96 M/mm3 (4.00-5.60); RDW 14.2 % (11.9-15.9); WHITE BLOOD COUNT 5.9 K/mm3 (4.0-10.0)
[2018-01-04 08:13] LABS: CHLORIDE 103 mmol/L (98-107); POTASSIUM 3.8 mmol/L (3.5-5.1); SODIUM 136 mmol/L (136-145)
[2018-01-04 08:57] LABS: ALBUMIN 2.8 g/dl (3.4-5.0); ALK PHOS 206 U/L (45-117); ANION GAP 9 (8-16); BILIRUBIN,TOTAL 0.4 mg/dL (0.2-1.0); BLOOD UREA NITROGEN 29 mg/dL (7-18); CALCIUM 7.6 mg/dL (8.5-10.1); CO2 24 mmol/L (21-32); CREATININE 2.2 mg/dL (0.7-1.3); GAMMA GLUTAMYL TRANSPEPTIDASE 285 U/L (5-85); GLUCOSE,RANDOM 84 mg/dL (74-106); LDH 252 U/L (87-241); PHOSPHOROUS 3.5 mg/dL (2.5-4.9); SGOT/AST 45 U/L (15-37); SGPT/ALT 37 U/L (12-78); TOT PROT 6.8 g/dl (6.4-8.2)
--- NOTE | 2018-01-04 09:45 | CONSULT ---
Consult Consult Specialty:: Hematology-oncology Reason for Consultation:: anemia with thrombocytopenia - History of Present Illness Chief Complaint: Genralized weakness History of Present Illness: 72M admitted came to hospital for generalized weakness and fatigue from 4 months. He states that weakness started in September and was admitted in [place] for the same. In [place] he was diagnosed with renal problem and anemia and was advised to follow up with director of medical services. But pamela went to [facility] and didnt follow up with director of medical services. He lives in [facility] and returned to [place] this past as he was visiting his family. He also states that he underwent colonoscopy and endoscopy about 2 years ago for melena and as per patient it was normal and Aspirin was stopped. He laso reports unintentional weight loss of 10 pounds over period of 3 months. In ER he is again found to have anemia with thrombocytopenia. Alkaline phosphatase and GGT was elevated but ultrasound is negative for choledocholithiasis and cbd size is 0.4cm. Liver and spleen are grossly unremarkable mal. Patient also states that he got HIV test in August 2017 in [facility] and it was normal ( Details not available ) Family history: Mother and father of cancer but details not available. Sister diagnosed with colon cancer. children healthy. - Past Medical History Cardio/Vascular: Yes: Hyperlipdemia, Other (Aortic valve disease) - Past Surgical History Past Surgical History: Yes: Permanent Pacemaker (Placed secondary to A. Fib ), Valve Replacement (Aortic valve in the s: porcine jitendra that was repaired 24 hours after initial surgery with bovine tissue.) - Alcohol/Substance Use Hx Alcohol Use: No - Smoking History Smoking history: Former smoker (smoked for 5 years, stopped in 1971) Have you smoked in the past 12 months: No If you are a former smoker, when did you quit?: 40 years ago - Social History Usual Living Arrangement: Alone (Lives in [facility]) ADL: Independent Occupation: Retired: worked for [employer], never been aexposed to fumes History of Recent Travel: Yes ([facility]. ) Home Medications - Allergies Allergies/Adverse Reactions: Allergies Allergy/AdvReac Type Severity Reaction Status Date / Time amlodipine Allergy Verified 01/02/18 09:33 lisinopril Allergy Swelling Verified 01/02/18 09:34 - Home Medications Home Medications: Ambulatory Orders Hydralazine HCl 50 mg PO TID 08/19/18 Metoprolol Succinate 25 mg PO DAILY 01/02/18 Simvastatin 20 mg PO HS 01/02/18 Valsartan 320 mg PO DAILY 01/02/18 Family Disease History - Family Disease History Family Disease History: Other: Father (: details not available ), Mother ( : 87: from cancer details not available ), Sister (2, 1 with h/o colon cancer, DM II), Son (3, healthy), Daughter (1, healthy) Review of Systems - Review of Systems Constitutional: reports: Lethargy, Unintentional Wgt. Loss, Weakness. denies: Chills, Diaphoresis, Fever, Loss of Appetite, Night Sweats Eyes: denies: Blind Spots, Blurred Vision, Double Vision, Recent Change in Vision HENT: denies: Difficult Swallowing, Gingival Bleeding Neck: denies: Lumps, Pain on Movement, Swollen Glands Cardiovascular: denies: Chest Pain, Palpitations, Shortness of Breath Respiratory: denies: Hemoptysis, Orthopnea, SOB Gastrointestinal: denies: Abdominal Pain, Bloating, Constipation, Diarrhea, Dysphagia, Melena, Rectal Bleeding, Vomiting Genitourinary: denies: Burning, Dysuria, Frequency, Hematuria, Testicular Mass, Testicular Pain, Testicular Swelling Musculoskeletal: denies: Back Pain, Joint Pain Neurological: denies: Change in Speech, Confusion, Dizziness, Headache Endocrine: reports: Unexplained Weight Loss Hematology/Lymphatic: denies: Easily Bruised, Excessive Bleeding Psychiatric: denies: Anxiety Physical Exam Vital Signs: Vital Signs Temperature 98.4 F 01/04/18 05:28 Pulse Rate 85 01/04/18 05:28 Respiratory Rate 20 01/04/18 05:28 Blood Pressure 143/72 01/04/18 05:28 O2 Sat by Pulse Oximetry (%) 96 01/04/18 01:00 Constitutional: Yes: Well Nourished, No Distress, Calm Eyes: Yes: WNL, Conjunctiva Clear, EOM Intact HENT: Yes: WNL, Atraumatic, Normocephalic. No: Thrush Neck: Yes: WNL, Supple, Trachea Midline. No: Lymphadenopathy Cardiovascular: Yes: Regular Rate and Rhythm, Murmur (aortic regurgitation murmur), S1, S2 Respiratory: Yes: WNL, Regular, CTA Bilaterally, Other (midline scar present, pacemaker present on right side. No axillary lymphnodes). No: Rales, Rhonchi, Wheezes Gastrointestinal: Yes: WNL, Normal Bowel Sounds. No: Distention, Palpable Mass , Splenomegaly Renal/: No: CVA Tenderness - Left, Scrotal Edema Musculoskeletal: Yes: WNL. No: Back Pain, Muscle Weakness Edema: No Psychiatric: Yes: Alert, Oriented Labs: CBC, BMP 01/04/18 06:00 01/04/18 06:00 Problem List - Problems (1) Thrombocytopenia Code(s): D69.6 - THROMBOCYTOPENIA, UNSPECIFIED (2) Anemia Code(s): D64.9 - ANEMIA, UNSPECIFIED Qualifiers: Anemia type: unspecified type Qualified Code(s): D64.9 - Anemia, unspecified (3) Renal failure Code(s): N19 - UNSPECIFIED KIDNEY FAILURE (4) Weakness Code(s): R53.1 - WEAKNESS Assessment/Plan Laboratory Tests 01/03/18 01/04/18 13:15 06:00 BUN 29 H Creatinine 2.2 H Iron 34 L TIBC 289 Iron Saturation 12 L GGT 285 H AST 45 H Alkaline Phosphatase 206 H D LD Total 252 H Albumin 2.8 L Serum Folate 34 H TSH 2.67 D Patient has Normocytic anemia with thrombocytopenia with iron studies in favour of anemia of chronic disease. CKD is also contributing to his anemia. Vitamin B12 level 234 . Corrected retic count is normal. We will order ldh, haptoglobin , hemoglobinelectrphoresis Patient albumin/ globulin ratio is reversed. work up for multiple myeloma has been initiated. We will start him on ferrous sulphate and vitamin b12. We will also order JAYDE Consider GI follow up. Consider nephrology follow up. Visit type - Emergency Visit Emergency Visit: Yes ED Registration Date: 01/02/18 Care time: The patient presented to the Emergency Department on the above date and was hospitalized for further evaluation of their emergent condition. - New Patient This patient is new to me today: Yes Date on this admission: 01/04/18 - Critical Care Critical Care patient: No
--- NOTE | 2018-01-04 09:58 | PN ---
Progress Note (short form) - Note Progress Note: Chief Complaint: Events noted, notes reviewed, generalized weakness, progressive fatigue, denies any chest pain or dyspnea History of Present Illness: Seen and examined. Full consult dictated Current Medications: Current Medications Atorvastatin Calcium (Lipitor -) 10 mg PO HS [facility] Last Admin: 01/03/18 21:59 Dose: 10 mg Hydralazine HCl (Apresoline -) 50 mg PO TID [facility] Last Admin: 01/04/18 06:12 Dose: 50 mg Sodium Chloride (Normal Saline -) 1,000 mls @ 83 mls/hr IV ASDIR [facility] Last Admin: 01/03/18 13:57 Dose: 83 mls/hr Insulin Aspart (Novolog Vial Sliding Scale -) 1 vial SQ ACHS [facility]; Protocol Last Admin: 01/04/18 06:12 Dose: Not Given Metoprolol Succinate (Toprol Xl -) 25 mg PO DAILY [facility] Last Admin: 01/03/18 10:36 Dose: 25 mg Review of Systems - Review of Systems Constitutional: reports: Weakness denies: Chills or Fever Cardiovascular: as noted above Gastrointestinal: denies: Nausea, Vomiting, Diarrhea, Constipation or Abdominal Pain Genitourinary: No symptoms reported Neurological: No symptoms reported - Objective Vital Signs: Last Vital Signs Temp Pulse Resp BP Pulse Ox 98.4 F 85 20 143/72 96 01/04/18 05:28 01/04/18 05:28 01/04/18 05:28 01/04/18 05:28 01/04/18 01:00 Intake & Output 01/01/18 01/02/18 01/03/18 01/04/18 23:59 23:59 23:59 23:59 Intake Total 200 1000 996 Balance 200 1000 996 Weight 152 lb 9.6 oz 157 lb 12.8 oz Neck: Supple negative JVD no bruit Cardiovascular: S1 S2 Regular Rate and Rhythm Grdae 2/6 SHASTA and Grade 2-3/6 Diastolic AI Murmur Respiratory: Clear to A&P Gastrointestinal: Soft Benign Normal Bowel Sounds Ext: Negative Edema Bilaterally Labs: CBC, BMP 01/04/18 06:00 01/04/18 06:00 Assessment/Plan: ASSESSMENT: 1. Progressive weakness, fatigue and tiredness referable to probable anemia etiology to be determined 2. Post AVR/bioprosthesis post operative course complicated by probable valve dehiscence requiring re-intervention 3. Physical examination consistent with significant prosthetic aortic valve regurgitation 4. Probable diastolic LV dysfunction with clinical class 0 NYHA classification LV failure 5. AV block post PPM 6. HTN 7. DM, dietary management 8. Hypercholesterolemia 9. CKD 10. Anemia and thrombocytopenia, etiology to be determined 11. Abnormal LFT's etiology to be determined PLAN: 1. Continue Toprl XL and titrate dosage as needed and as tolerated 2. Continue Hydralazine 3. Ideally Norvasc therapy to be initiated, but prior intolerance to therapy administration 4. Discontinue Lipitor, pending LFT normalization 5. Ideally should be on ASA but to be deferred pending resolution of anemia and thrombocytopenia 6. Pacemaker interrogation 7. Echocardiography for evaluation of the LV size and function and the above noted valvular pathology Above was discussed in detail with the patient Duane Boston MD
[2018-01-04] MEDS: metoPROLOL SUCCINATE 25 MG TAB.SR.24H (FP) PO SCH (10:25)
--- NOTE | 2018-01-04 11:42 | CONS ---
DATE OF CONSULTATION: 01/04/2018 REQUESTED BY: Hospitalist CHIEF COMPLAINT: Progressive weakness, cardiovascular evaluation. HISTORY OF PRESENT ILLNESS: This 72-year-old male of [place] descent of ancestry with known history of aortic valve disease post aortic valve replacement, bioprosthetic 2007, postoperative course complicated by acute aortic regurgitation most likely valve dehiscence requiring reintervention, hypertensive cardiovascular disease, diabetes mellitus, hypercholesterolemia, chronic kidney disease who presented to [facility] with progressive weakness which has been noted over the last several weeks. Patient had the above-noted open heart surgery in [place], and subsequently, he was residing in [facility]. Patient was visiting his son in [facility] when he presented to [facility] with the above-noted complaint. Patient reported dyspnea with [id number] physical exertion. Patient denied any peripheral edema. Patient denied any orthopnea or paroxysmal nocturnal dyspnea. Patient denied any chest discomfort. Patient denied any palpitations, dizziness, lightheadedness, or syncope. PAST MEDICAL HISTORY: Aortic valve disease, post aortic valve replacement bioprosthetic 2007, postoperative course complicated by reintervention for acute aortic valve regurgitation most likely related to valve dehiscence, probable diastolic LV dysfunction, hypertensive cardiovascular disease, diabetes mellitus, hypercholesterolemia, chronic kidney disease. SOCIAL HISTORY: Prior history of tobacco abuse. FAMILY HISTORY: No family history of premature coronary artery disease. ALLERGIES: LISINOPRIL IN FORM OF ANGIOEDEMA. INTOLERANCE TO AMLODIPINE THERAPY IN FORM OF PERIPHERAL EDEMA. INTOLERANCE TO ASPIRIN THERAPY IN FORM OF UPPER GASTROINTESTINAL BLEED. MEDICAL THERAPY: Currently includes Lipitor 10 mg once a day, hydralazine 50 mg 3 times a day, insulin coverage, Toprol XL 25 mg once daily. REVIEW OF SYSTEMS: Head and Neck: Denies headache, photophobia, blurring of vision. Respiratory: No cough or sputum production. Cardiovascular: As noted above. Gastrointestinal: Denies nausea, vomiting, diarrhea, abdominal discomfort. Genitourinary: No symptoms reported. PHYSICAL EXAMINATION: Vital Signs: Blood pressure 143/72 mmHg, pulse rate 85 beats per minute. Head and Neck: Pupils equal and reactive to light and accommodation. Extraocular muscles are intact. Anicteric sclerae. Negative JVD. No bruit appreciated. Chest: Clear to auscultation and percussion. Cardiovascular: S1, S2 regular. Grade 2/6 systolic ejection murmur. In addition, grade 2/6 to 3/6 diastolic murmur related to probable aortic valve regurgitation. Abdomen: Soft, benign. Normoactive bowel sounds. Extremities: Negative edema. Intact distal pulses. No calf tenderness. DIAGNOSTIC STUDIES: Electrocardiogram revealed sinus rhythm with left axis deviation, poor R-wave progression, and nonspecific ST segment and T wave abnormality. Chest x-ray report was noted. Abdominal ultrasound report was noted. CBC revealed white cell count 5.9, hemoglobin 7.9, platelet count is 80. INR 1.12. Basic metabolic profile with sodium 136, potassium 3.8, BUN of 29, creatinine 2.2. Estimated GFR 29.65. Glucose 84. Hemoglobin A1c 5.4. GGT 285. AST 45. TSH 2.67. ASSESSMENT: 1. Progressive weakness, fatigue, and tiredness referable to probable anemia, etiology of which is to be determined. 2. Post aortic valve replacement bioprosthetic postoperative course complicated by probable valve dehiscence requiring reintervention. 3. Physical examination is consistent with significant prosthetic aortic valve regurgitation. 4. Probable diastolic left ventricular dysfunction with clinical class 0 [employer] calcification left ventricular failure. 5. Hypertensive cardiovascular disease. 6. Diabetes mellitus. Dietary management. Normalize hemoglobin A1c. 7. Hypercholesterolemia. 8. Chronic kidney disease. 9. Anemia on thrombocytopenia, etiology of which is to be determined. 10. Abnormal liver function testing, etiology of which is to be determined. RECOMMENDATIONS: 1. Continuation of Toprol XL with titration of dosage as needed and as tolerated. 2. Continuation of hydralazine therapy. 3. Ideally, Norvasc therapy to be initiated but prior intolerance to therapy administration has been reported. 4. Discontinue Lipitor therapy considering the above-noted abnormal liver function testing. 5. Ideally patient should be on aspirin but to be deferred pending resolution of the above-noted anemia and thrombocytopenia. 6. Echocardiography for evaluation of left ventricular size and function and the above noted valvular pathology. Above was discussed in detail with the patient. Thank you for the kind referral. JENNY BOSE M.D. DARLEEN/[id number]
[2018-01-04] MEDS: FERROUS SO4 325 MG TABLET (FP) PO SCH (12:10)
--- NOTE | 2018-01-04 12:47 | PN ---
Progress Note (short form) - Note Progress Note: Subjective: The patient was seen and examined at the bedside, he has no complaints at this time. Current Medications Generic Name Dose Route Start Last Admin Trade Name Carmen PRN Reason Stop Dose Admin Atorvastatin Calcium 10 mg 01/02/18 22:00 01/03/18 21:59 Lipitor - PO 10 mg HS LOVELY Administration Ferrous Sulfate 325 mg 01/04/18 10:15 01/04/18 12:10 Feosol - PO 325 mg DAILY LOVELY Administration Hydralazine HCl 50 mg 01/02/18 14:00 01/04/18 06:12 Apresoline - PO 50 mg TID LOVELY Administration Sodium Chloride 1,000 mls @ 83 mls/hr 01/03/18 13:15 01/03/18 13:57 Normal Saline - IV 83 mls/hr ASDIR LOVELY Administration Insulin Aspart 1 vial 01/02/18 16:30 01/04/18 12:44 Novolog Vial Sliding Scale - SQ Not Given ACHS LOVELY Protocol Metoprolol Succinate 25 mg 01/02/18 14:00 01/04/18 10:25 Toprol Xl - PO 25 mg DAILY LOVELY Administration Objective: Vital Signs Period Temp Pulse Resp BP Sys/Burnett Pulse Ox Last 24 Hr 97.6 F-99.5 F 79-85 20-20 132-183/65-91 96-96 Physical Exam: General: NAD, A&Ox3 Lungs: CTA bilaterally Heart: RRR, S1S2, +murmur Abd: Soft, non-tender, non-distended. Normoactive bowel sounds Ext: Warm, well-perfused CBCD WBC 5.9 K/mm3 (4.0-10.0) 01/04/18 06:00 RBC 2.96 M/mm3 (4.00-5.60) L 01/04/18 06:00 Hgb 7.9 GM/dL (11.7-16.9) L 01/04/18 06:00 Hct 24.0 % (35.4-49) L 01/04/18 06:00 MCV 81.0 fl (80-96) 01/04/18 06:00 MCHC 32.9 g/dl (32.0-35.9) 01/04/18 06:00 RDW 14.2 % (11.9-15.9) 01/04/18 06:00 Plt Count 80 K/MM3 (134-434) L 01/04/18 06:00 MPV 7.8 fl (7.5-11.1) 01/04/18 06:00 CMP Sodium 136 mmol/L (136-145) 01/04/18 06:00 Potassium 3.8 mmol/L (3.5-5.1) 01/04/18 06:00 Chloride 103 mmol/L (98-107) 01/04/18 06:00 Carbon Dioxide 24 mmol/L (21-32) 01/04/18 06:00 Anion Gap 9 (8-16) 01/04/18 06:00 BUN 29 mg/dL (7-18) H 01/04/18 06:00 Creatinine 2.2 mg/dL (0.7-1.3) H 01/04/18 06:00 Creat Clearance w eGFR 29.65 (>60) 01/04/18 06:00 Random Glucose 84 mg/dL (74-106) 01/04/18 06:00 Calcium 7.6 mg/dL (8.5-10.1) L 01/04/18 06:00 Total Bilirubin 0.4 mg/dL (0.2-1.0) 01/04/18 06:00 AST 45 U/L (15-37) H 01/04/18 06:00 ALT 37 U/L (12-78) 01/04/18 06:00 Alkaline Phosphatase 206 U/L (45-117) H D 01/04/18 06:00 Total Protein 6.8 g/dl (6.4-8.2) 01/04/18 06:00 Albumin 2.8 g/dl (3.4-5.0) L 01/04/18 06:00 CARDIAC ENZYMES Creatine Kinase 180 IU/L (39-308) 01/02/18 12:26 Troponin I < 0.02 ng/ml (0.00-0.05) 01/02/18 10:55 Microbiology 01/02/18 14:16 Blood - Peripheral Venous Blood Culture - Preliminary NO GROWTH OBTAINED AFTER 24 HOURS, INCUBATION TO CONTINUE FOR 4 DAYS. 01/02/18 14:16 Blood - Peripheral Venous Blood Culture - Preliminary NO GROWTH OBTAINED AFTER 24 HOURS, INCUBATION TO CONTINUE FOR 4 DAYS. 01/02/18 11:00 Urine - Urine Clean Catch Urine Culture - Final NO GROWTH OBTAINED 01/02/18 16:30 Nasopharyngeal Swab Influenza Types A,B Antigen - Final 01/02/18 16:30 Nasopharyngeal Swab - Final Assessment: This is a 72 year old male with PMHx of HTN, HLD, NIDDM, s/p aortic valve replacement, PPM, who presented to the ED with generalized weakness and body aches Plan: 1) Anemia - Patient's pcp, Dr. Ely in [place] reports the patient had a recent GI bleed for which he required PRBC transfusion - F/u iron studies - Guiac negative per GI - Start ferrous sulfate - F/u hematology consult - Appreciate GI consult: possible EDG/colonoscopy 2) R/o multiple myeloma - MM workup per oncology 2) Thrombocytopenia - Chronic - Labs from pcp's office show platelet of 74 on 08/05/17 - F/u hematology consult 3) Abnormal liver function tests - GGT 285 - F/u hepatitis panel - F/u CTAP, performed, pending read 4) Enlarged prostate - Per GI evaluation - PSA 1.1 on 08/05/17 5) CKD - Patient Cr 08/05/17 was 3.[address] Dr. Ely, he was being worked up for CKD and they were just monitoring his kidney function at this time - Cr stable, 2.2 today - Discussed with Dr. Crawley - F/u Julio C 6) DM - BGM ACHS - ISS ACHS 7) Post AVR/bioprosthesis - Continue Toprol XL - Ideally should be on ASA, however anemia and thrombocytopenia workup ongoing, will defer starting for now 8) PPM - F/u interrogation 9) Probable diastolic LV dysfunction - F/u ECHO Visit type - Emergency Visit Emergency Visit: Yes ED Registration Date: 01/02/18 Care time: The patient presented to the Emergency Department on the above date and was hospitalized for further evaluation of their emergent condition. - New Patient This patient is new to me today: No - Critical Care Critical Care patient: No
[2018-01-04 13:23] LABS: HEMATOCRIT 24.6 % (35.4-49); HEMOGLOBIN 7.9 GM/dL (11.7-16.9); MEAN CELL VOLUME 81.4 fl (80-96); MEAN PLT VOLUME 7.8 fl (7.5-11.1); PLATELET COUNT 92 K/MM3 (134-434); RBC 3.02 M/mm3 (4.00-5.60); RDW 14.6 % (11.9-15.9); WHITE BLOOD COUNT 6.5 K/mm3 (4.0-10.0)
--- NOTE | 2018-01-04 13:29 | ECHO ---
Name: JESSICA JAMES Exam:Adult Echocardiogram Study Date: 01/04/2018 10:46 AM Age: 72 yrs Reason For Study: POST AVR WITH PROMINANT AI MURMUR Height: 69 in Weight: 157 lb BSA: 1.9 m2 MMode/2D Measurements & Calculations IVSd: 1.3 cm Ao root diam: 3.6 cm LVIDd: 5.4 cm LA dimension: 3.5 cm LVIDs: 3.5 cm LVPWd: 1.2 cm EDV(Teich): 141.9 ml TAPSE: 2.9 cm ESV(Teich): 49.7 ml RV S Efren: 14.3 cm/sec Doppler Measurements & Calculations MV E max efren: 109.2 cm/sec Ao V2 max: 302.7 cm/sec MV A max efren: 103.7 cm/sec Ao max P.7 mmHg MV E/A: 1.1 Ao V2 mean: 199.3 cm/sec MV dec time: 0.15 sec Ao mean P.0 mmHg Ao V2 VTI: 56.8 cm AI P1/2t: 209.3 msec AI max efren: 470.0 cm/sec LV V1 max P.7 mmHg AI max P.4 mmHg LV V1 mean P.1 mmHg LV V1 max: 129.8 cm/sec AI dec slope: 657.6 cm/sec2 LV V1 mean: 80.9 cm/sec LV V1 VTI: 25.6 cm MR max efren: 360.9 cm/sec TR max efren: 200.6 cm/sec MR max P.1 mmHg TR max P.1 mmHg Med Peak E' Efren: 5.6 cm/sec Med E/e': 19.6 Lat Peak E' Efren: 11.4 cm/sec Lat E/e': 9.6 Procedure A complete two-dimensional transthoracic echocardiogram was performed (2D, M-mode, Doppler and color flow Doppler). Left Ventricle There is borderline concentric left ventricular hypertrophy. The left ventricle is normal in size. Ej ection Fraction = 60%. The transmitral spectral Doppler flow pattern is suggestive of impaired LV relaxation . The left ventricular wall motion is normal. Right Ventricle There is a pacemaker lead in the right ventricle. The right ventricle is normal in size and function. Atria Normal left and right atrial size and function. Mitral Valve There is mild mitral annular calcification. There is mild mitral regurgitation. Tricuspid Valve The tricuspid valve is not well visualized, but is grossly normal. There is severe tricuspid regurgit ation. Right ventricular systolic pressure is 16 mmhg. Aortic Valve There is a bioprosthetic aortic valve. Doppler reveals an intravalvular leak from the prosthetic aort ic valve. The prosthetic aortic valve appears abnormal. Severe aortic regurgitation. Pulmonic Valve The pulmonic valve is not well seen, but is grossly normal. Mild pulmonic valvular regurgitation. Great Vessels The aortic root is normal size. Pericardium/Pleura There is no pericardial effusion. There is no pleural effusion. Interpretation Summary There is borderline concentric left ventricular hypertrophy. The left ventricle is normal in size. The left ventricular wall motion is normal. Ejection Fraction = 60%. There is a pacemaker lead in the right ventricle. The right ventricle is normal in size and function. There is mild mitral regurgitation. There is severe tricuspid regurgitation. The prosthetic aortic valve appears abnormal. Doppler reveals an intravalvular leak from the prosthetic aortic valve. Severe aortic regurgitation. Mild pulmonic valvular regurgitation. Right ventricular systolic pressure is 16 mmhg. MD Marty Aguillon 01/04/2018 01:29 PM
--- NOTE | 2018-01-04 16:45 | PN ---
GI Progress Note Subjective: No acute events No abdominal pain No overt bleeding - Objective Vital Signs: Vital Signs Temperature 99.1 F 01/04/18 13:12 Pulse Rate 70 01/04/18 16:24 Respiratory Rate 20 01/04/18 16:24 Blood Pressure 160/74 01/04/18 16:24 O2 Sat by Pulse Oximetry (%) 96 01/04/18 01:00 Constitutional: Calm Eyes: No: Sclera Icterus Cardiovascular: Yes: Regular Rate and Rhythm, Murmur Respiratory: Yes: CTA Bilaterally Gastrointestinal Inspection: No: Distention ...Auscultate: Yes: Normoactive Bowel Sounds ...Palpate: No: Hepatomegaly, Splenomegaly, Tenderness Labs: CBC, BMP 01/04/18 12:55 01/04/18 06:00 INR, PTT INR 1.12 (0.83-1.09) H 01/03/18 10:37 01/02/18 01/04/18 01/04/18 14:14 06:00 06:00 GGT 285 H Hepatitis A IgM Ab Negative Hepatitis A Ab Total Pending Hep Bs Antigen Negative Pending Hep Bs Antibody Pending Hep B Core Total Ab Pending Hep B Core IgM Ab Negative Hepatitis C Antibody 0.1 Hepatic Panel Total Bilirubin 0.4 mg/dL (0.2-1.0) 01/04/18 06:00 AST 45 U/L (15-37) H 01/04/18 06:00 ALT 37 U/L (12-78) 01/04/18 06:00 Alkaline Phosphatase 206 U/L (45-117) H D 01/04/18 06:00 Albumin 2.8 g/dl (3.4-5.0) L 01/04/18 06:00 01/03/18 13:15 Iron Saturation 12 L 01/03/18 13:15 Iron 34 L TIBC 289 01/03/18 11:00 Ferritin 60.7 - ....Imaging Other: Report Reviewed (Echo: Severe aortic and tricuspid regurg,abnormal appearing prosthetic valve, EF 60%) Problem List - Problems (1) Anemia Assessment/Plan: Likely mixed picture with some component of iron deficiency. Hematology evaluation n progress Cardiology final evaluation and recommendations prior to proceeding with repeat endoscopic evaluation given echo findings Code(s): D64.9 - ANEMIA, UNSPECIFIED Qualifiers: Anemia type: unspecified type Qualified Code(s): D64.9 - Anemia, unspecified (2) Abnormal liver function tests Assessment/Plan: ? if secondary to passive congestion Awaiting CT scan read: called radiology dept to have it read JAYDE pending, smooth muscle anibody ordered for AM ? ID evaluation Code(s): R94.5 - ABNORMAL RESULTS OF LIVER FUNCTION STUDIES (3) Murmur, cardiac Assessment/Plan: Beng evaluated by cardiology and eco results noted. Code(s): R01.1 - CARDIAC MURMUR, UNSPECIFIED
--- NOTE | 2018-01-04 16:57 | PN ---
Progress Note (short form) - Note Progress Note: Renal follow up for CKD Pt seen and examined at the bedside no acute complaints denies any pain, sob, cp, abd pain, N/V/D making urine Vital Signs Temperature 99.1 F 01/04/18 13:12 Pulse Rate 70 01/04/18 16:24 Respiratory Rate 20 01/04/18 16:24 Blood Pressure 160/74 01/04/18 16:24 O2 Sat by Pulse Oximetry (%) 96 01/04/18 01:00 Intake & Output 01/01/18 01/02/18 01/03/18 01/04/18 23:59 23:59 23:59 23:59 Intake Total 200 1000 1296 Balance 200 1000 1296 Weight 69.218 kg 71.577 kg NAD RRR cTA soft NT/ND No LE edema CBC, BMP 01/04/18 12:55 01/04/18 06:00 Current Medications Atorvastatin Calcium (Lipitor -) 10 mg PO HS [facility] Last Admin: 01/03/18 21:59 Dose: 10 mg Ferrous Sulfate (Feosol -) 325 mg PO DAILY [facility] Last Admin: 01/04/18 12:10 Dose: 325 mg Hydralazine HCl (Apresoline -) 50 mg PO TID [facility] Last Admin: 01/04/18 16:03 Dose: 50 mg Sodium Chloride (Normal Saline -) 1,000 mls @ 83 mls/hr IV ASDIR [facility] Last Admin: 01/03/18 13:57 Dose: 83 mls/hr Insulin Aspart (Novolog Vial Sliding Scale -) 1 vial SQ ACHS [facility]; Protocol Last Admin: 01/04/18 12:44 Dose: Not Given Metoprolol Succinate (Toprol Xl -) 25 mg PO DAILY [facility] Last Admin: 01/04/18 10:25 Dose: 25 mg 72 year old gentleman with Hx of Hypertension, Hyperlipidemia, CKD, Aortic Valve Replacement, PPM who presented with diffuse body aches and weakness and found to have anemia and elevated BUN/Cr. #Acute on Chronic Renal Insufficiency #CKD #Hypertension #Anemia #Abnormal LFT's Renal function stable, outpatient Cr was 3.1 pt likely with CKD secondary to diabetic nephropathy pt with nephrotic range proteinuria, JAYDE and SPEP collected, results pending continue GI work up for Anemia PRBC transfusion as needed iron saturation is low, can give IV iron may benefit from AUGUSTA if Hgb remains < 10 Dov Crawley DO
[2018-01-04] MEDS ORDERED: IRON SUCROSE INJECTION 100 MG in SODIUM CHLORIDE 95 ML IVPB ONE (17:00)
[2018-01-04] MEDS ORDERED: INSULIN (NOVOLOG) ASPART 100 UNITS/ML 10ML VIAL ONE (17:42)
--- NOTE | 2018-01-04 18:41 | PN ---
Teaching Attending Note Name of Resident: Dipak Flaherty ATTENDING PHYSICIAN STATEMENT I saw and evaluated the patient. I reviewed the resident's note and discussed the case with the resident. I agree with the resident's findings and plan as documented. SUBJECTIVE:72 year old presents with weakness, anemia, CKD, thrombocytopenia, ESR-103. OBJECTIVE: Last Vital Signs Temp Pulse Resp BP Pulse Ox 99.1 F 70 20 160/74 96 01/04/18 13:12 01/04/18 16:24 01/04/18 16:24 01/04/18 16:24 01/04/18 09:00 HEENT: CHAMP, EOM Intact Oropharynx: No thrush, No mucositis Neck: Supple Nodes: Without adenopathy CBC, BMP 01/04/18 12:55 01/04/18 06:00 Cor: RSR,SHASTA,diastolic murmur Lungs: Clear to P&A Abd: Soft, Normal bowel sounds, No organomegaly Ext:No significant edema Skin: No rashes, Integument intact Current Medications Generic Name Dose Route Start Last Admin Trade Name Carmen PRN Reason Stop Dose Admin Atorvastatin Calcium 10 mg 01/02/18 22:00 01/03/18 21:59 Lipitor - PO 10 mg HS LOVELY Administration Cyanocobalamin 1,000 mcg 01/04/18 18:00 Vitamin B12 Injection - IM 01/08/18 18:01 DAILY@1800 LOVELY Ferrous Sulfate 325 mg 01/04/18 10:15 01/04/18 12:10 Feosol - PO 325 mg DAILY LOVELY Administration Hydralazine HCl 50 mg 01/02/18 14:00 01/04/18 16:03 Apresoline - PO 50 mg TID LOVELY Administration Insulin Aspart 1 vial 01/02/18 16:30 01/04/18 17:47 Novolog Vial Sliding Scale - SQ Not Given ACHS LOVELY Protocol Metoprolol Succinate 25 mg 01/02/18 14:00 01/04/18 10:25 Toprol Xl - PO 25 mg DAILY LOVELY Administration ASSESSMENT AND PLAN: Impression: Anemia- multifactorial Component of Fe++ deficiency Component of chronic disease Component of CKD Component of B-12 deficiency Reverse a/g ratio to exclude dysproteinemia-- abnormal LFT's unusual in MM except very late in course. To monitor on B-12 and Fe++ therapy To exclude celiac disease Have not adequately explained ESR or thrombocytopenia ? flow, ? BM To monitor on B-12 and Fe++ GI work up probably of value in view of family hx and Fe++ deficient. ? bone marrow
[2018-01-04] MEDS: CYANOCOBALAMIN (VITAMIN B-12) 1000 MCG/1 ML VIAL IM SCH (18:49)
[2018-01-04] MEDS ORDERED: PT OWN MED DRAWER 7, Y5N ONE (21:17)
[2018-01-04] MEDS: ATORVASTATIN CA 10 MG TABLET (FP) PO SCH (21:22)
[2018-01-04 22:12] VITALS: BMI 23.1
[2018-01-05] MEDS: hydrALAZINE HCL 50 MG TABLET (FP) PO SCH ×3 (06:04→21:38)
[2018-01-05] MEDS: INSULIN SLIDING SCALE (NOVOLOG) 1 VIAL SQ SCH ×3 (06:05→17:19)
[2018-01-05 08:53] LABS: BASO % 0.2 % (0-2.0); EOS % 0.9 % (0-4.5); HEMATOCRIT 25.9 % (35.4-49); HEMOGLOBIN 8.5 GM/dL (11.7-16.9); LYMPH % 31.8 % (8-40); MCH 26.7 pg (25.7-33.7); MCHC 32.9 g/dl (32.0-35.9); MEAN CELL VOLUME 81.2 fl (80-96); MEAN PLT VOLUME 7.6 fl (7.5-11.1); NEUT % 57.1 % (42.8-82.8); PLATELET COUNT 97 K/MM3 (134-434); RBC 3.19 M/mm3 (4.00-5.60); RDW 14.5 % (11.9-15.9); WHITE BLOOD COUNT 8.4 K/mm3 (4.0-10.0)
[2018-01-05 09:14] LABS: ALBUMIN 3.3 g/dl (3.4-5.0); ANION GAP 11 MMOL/L (8-16); BLOOD UREA NITROGEN 25 mg/dL (7-18); CALCIUM 8.3 mg/dL (8.5-10.1); CHLORIDE 101 mmol/L (98-107); CO2 23 mmol/L (21-32); GLUCOSE,RANDOM 90 mg/dL (74-106); POTASSIUM 3.6 mmol/L (3.5-5.1); SODIUM 135 mmol/L (136-145)
[2018-01-05 09:18] LABS: ALK PHOS 241 U/L (45-117); BILIRUBIN,TOTAL 0.5 mg/dL (0.2-1.0); LDH 298 U/L (87-241); PHOSPHOROUS 3.3 mg/dL (2.5-4.9); SGOT/AST 58 U/L (15-37); SGPT/ALT 43 U/L (12-78)
[2018-01-05] MEDS: metoPROLOL SUCCINATE 25 MG TAB.SR.24H (FP) PO SCH (09:40)
[2018-01-05] MEDS: FERROUS SO4 325 MG TABLET (FP) PO SCH (09:41)
[2018-01-05] MEDS ORDERED: INSULIN (NOVOLOG) ASPART 100 UNITS/ML 10ML VIAL ONE (12:12)
--- NOTE | 2018-01-05 12:50 | PN ---
Progress Note, Physician History of Present Illness: Patient denies chest pain, dyspnea, near or true syncope or palpitations. - Current Medication List Current Medications: Active Medications Atorvastatin Calcium (Lipitor -) 10 mg PO HS [facility] Last Admin: 01/04/18 21:22 Dose: 10 mg Cyanocobalamin (Vitamin B12 Injection -) 1,000 mcg IM DAILY@1800 [facility] Stop: 01/08/18 18:01 Last Admin: 01/04/18 18:49 Dose: 1,000 mcg Ferrous Sulfate (Feosol -) 325 mg PO DAILY [facility] Last Admin: 01/05/18 09:41 Dose: 325 mg Hydralazine HCl (Apresoline -) 50 mg PO TID [facility] Last Admin: 01/05/18 06:04 Dose: 50 mg Insulin Aspart (Novolog Vial Sliding Scale -) 1 vial SQ ACHS [facility]; Protocol Last Admin: 01/05/18 12:20 Dose: Not Given Metoprolol Succinate (Toprol Xl -) 25 mg PO DAILY [facility] Last Admin: 01/05/18 09:40 Dose: 25 mg - Objective Vital Signs: Vital Signs Temperature 98.5 F 01/05/18 05:47 Pulse Rate 74 01/05/18 05:47 Respiratory Rate 20 01/05/18 05:47 Blood Pressure 139/62 01/05/18 05:47 O2 Sat by Pulse Oximetry (%) 96 01/04/18 09:00 Constitutional: Yes: No Distress, Calm, Thin Neck: Yes: Supple Cardiovascular: Yes: Regular Rate and Rhythm, Murmur (2/6 SM, DM) Respiratory: Yes: Regular, CTA Bilaterally Gastrointestinal: Yes: Normal Bowel Sounds, Soft Edema: No Labs: CBC, BMP 01/05/18 08:20 01/05/18 08:20 INR, PTT INR 1.12 (0.83-1.09) H 01/03/18 10:37 Problem List - Problems (1) Oqhom-yf-riyrmgu kidney injury Code(s): N17.9 - ACUTE KIDNEY FAILURE, UNSPECIFIED; N18.9 - CHRONIC KIDNEY DISEASE, UNSPECIFIED Qualifiers: Chronic kidney disease stage: stage 3 (moderate) (2) Diastolic dysfunction without heart failure Code(s): I51.89 - OTHER ILL-DEFINED HEART DISEASES (3) History of aortic valve replacement with bioprosthetic valve Code(s): Z95.3 - PRESENCE OF XENOGENIC HEART VALVE (4) Severe aortic regurgitation Code(s): I35.1 - NONRHEUMATIC AORTIC (VALVE) INSUFFICIENCY (5) Severe tricuspid regurgitation Code(s): I07.1 - RHEUMATIC TRICUSPID INSUFFICIENCY (6) Valvular cardiomyopathy Code(s): I42.8 - OTHER CARDIOMYOPATHIES (7) Abnormal liver function tests Code(s): R94.5 - ABNORMAL RESULTS OF LIVER FUNCTION STUDIES (8) Anemia Code(s): D64.9 - ANEMIA, UNSPECIFIED Qualifiers: Anemia type: unspecified type Qualified Code(s): D64.9 - Anemia, unspecified (9) Weakness Code(s): R53.1 - WEAKNESS Assessment/Plan 01/04/2018 Echocardiography: Borderline cLVH, normal LV size and fxn, LVEF 60%, normal RV size and fxn pacer in RV, mild MR, severe TR, severe bioprosthetic AR , mild RI 1. Progressive weakness, fatigue and tiredness referable to probable anemia etiology to be determined 2. Post AVR/bioprosthesis post operative course complicated by probable valve dehiscence requiring reintervention now with severe bioprosthetic AR 3. Diastolic LV dysfunction with clinical class 0 NYHA classification LV failure 4. AV block post PPM 5. HTN 6. DM, dietary management 7. Hypercholesterolemia 8. Acute on CKD referable to diabetic nephropathy with nephrotic range proteinuria 9. Anemia and thrombocytopenia, multifactorial (components of Fe++ deficiency, chronic disease, CKD, B-12 deficiency 10. Abnormal LFT's etiology to be determined PLAN: 1. Continue Toprol XL 25 qd and titrate dosage as needed and as tolerated 2. Continue Hydralazine 50 tid, resume ARB once renal fxn stabilizes 3. Ideally Norvasc therapy to be initiated, but prior intolerance to therapy administration 4. Continue Lipitor 10 qhs, f/u LFTs 5. Ideally should be on ASA but to be deferred pending resolution of anemia and thrombocytopenia 6. Pacemaker interrogation 7. F/u SPEP, UPEP 8. Given absence of symptoms of acute coronary syndrome, decompensated CHF or malignant arrhythmia, may proceed with endoscopic evaluation from CV-standpoint without further testing 9. F/u echo in several months to assess for progression of valvular cardiomyopathy and consideration for TAVR
--- NOTE | 2018-01-05 17:27 | PN ---
GI Progress Note Subjective: No acute events No overt bleeding Evaluated by cardiology Radiologist Dr. Loaiza describes questionable circumferential thickening in rectosigmoid / sigmoid segments on CT scan of abdomen and pelvis yesterday - Objective Vital Signs: Vital Signs Temperature 98.4 F 01/05/18 15:34 Pulse Rate 78 01/05/18 15:34 Respiratory Rate 19 01/05/18 13:00 Blood Pressure 167/67 01/05/18 15:34 O2 Sat by Pulse Oximetry (%) 98 01/05/18 09:00 Constitutional: Calm Eyes: No: Sclera Icterus Cardiovascular: Yes: Regular Rate and Rhythm, Murmur Respiratory: Yes: CTA Bilaterally Gastrointestinal Inspection: No: Distention ...Auscultate: Yes: Normoactive Bowel Sounds ...Palpate: No: Hepatomegaly, Tenderness ...Percussion: No: Tympanitic Edema: No (No LE edema) Labs: CBC, BMP 01/05/18 08:20 01/05/18 08:20 INR, PTT INR 1.12 (0.83-1.09) H 01/03/18 10:37 - ....Imaging Cat Scan: Report Reviewed, Image Reviewed Problem List - Problems (1) Anemia Assessment/Plan: No overt bleeding Hematology following Iron def component: For EGD/Colon Code(s): D64.9 - ANEMIA, UNSPECIFIED Qualifiers: Anemia type: unspecified type Qualified Code(s): D64.9 - Anemia, unspecified (2) Abnormal liver function tests Assessment/Plan: Limited evaluation of liver given lack of IV contrast Code(s): R94.5 - ABNORMAL RESULTS OF LIVER FUNCTION STUDIES (3) Murmur, cardiac Assessment/Plan: Cardilogy following for severe aortic and tricuspid regurg Will discuss Abx prior to procedure with cardiology given the abnormal appearance of bioprosthetic valve. ? higher risk for BE Code(s): R01.1 - CARDIAC MURMUR, UNSPECIFIED (4) Abnormal CT of the abdomen Assessment/Plan: ? of thickening of the sigmoid/rectosigmoid on CT scan. For further evaluation with colonoscopy Discussed potential risks of the procedures with Mr. Mercado like but not limited to bleedin, perforation requiring surgery to repair, infection, sedation medication effects all of which could be potentially life threatening. He has agredd to the procedures. Planned for sunday 01/07 Code(s): R93.5 - ABN FINDINGS ON DX IMAGING OF ABD REGIONS, INC RETROPERITON
[2018-01-05] MEDS: CYANOCOBALAMIN (VITAMIN B-12) 1000 MCG/1 ML VIAL IM SCH (17:28)
--- NOTE | 2018-01-05 17:33 | PN ---
Physical Exam: SUBJECTIVE: Patient seen and examined. He has no complaints. OBJECTIVE: Vital Signs Period Temp Pulse Resp BP Sys/Burnett Pulse Ox Last 24 Hr 98.4 F-98.5 F 74-90 19-20 137-167/62-80 98 GENERAL: The patient is awake, alert, and fully oriented, in no acute distress. LUNGS: Breath sounds equal, clear to auscultation bilaterally, no wheezes, no crackles, no accessory muscle use. HEART: Regular rate and rhythm, S1, S2, (+) 2/6 systolic/diastolic murmurs. ABDOMEN: Soft, nontender, nondistended, normoactive bowel sounds, no guarding, no rebound, no hepatosplenomegaly, no masses. EXTREMITIES: 2+ pulses, warm, well-perfused, no edema. Laboratory Results - last 24 hr 01/03/18 01/04/18 01/04/18 06:10 06:00 17:46 WBC RBC Hgb Hct MCV MCH MCHC RDW Plt Count MPV Absolute Neuts (auto) Neutrophils % Lymphocytes % Monocytes % Eosinophils % Basophils % Nucleated RBC % Sodium Potassium Chloride Carbon Dioxide Anion Gap BUN Creatinine Creat Clearance w eGFR POC Glucometer 138 Random Glucose Calcium Phosphorus Iron 30 L Total Bilirubin AST ALT Alkaline Phosphatase LD Total Total Protein Albumin JAYDE Screen Positive H JAYDE Homogeneous Pattern TNP JAYDE Nucleolar Pattern TNP JAYDE Spindle Immanuel Pattern TNP JAYDE Midbody Pattern TNP JAYDE Centriole Pattern TNP JAYDE Nuclear Dot Pattern TNP JAYDE PCNA Pattern TNP JAYDE Nuclear Membr Pat TNP JAYDE Speckled Pattern 1:80 JAYDE Centromere Pattern TNP 01/04/18 01/05/18 01/05/18 21:11 05:55 08:20 WBC 8.4 RBC 3.19 L Hgb 8.5 L Hct 25.9 L MCV 81.2 MCH 26.7 MCHC 32.9 RDW 14.5 Plt Count 97 L MPV 7.6 Absolute Neuts (auto) 4.8 Neutrophils % 57.1 Lymphocytes % 31.8 Monocytes % 10.0 Eosinophils % 0.9 Basophils % 0.2 Nucleated RBC % 0 Sodium Potassium Chloride Carbon Dioxide Anion Gap BUN Creatinine Creat Clearance w eGFR POC Glucometer 122 94 Random Glucose Calcium Phosphorus Iron Total Bilirubin AST ALT Alkaline Phosphatase LD Total Total Protein Albumin JAYDE Screen JAYDE Homogeneous Pattern JAYDE Nucleolar Pattern JAYDE Spindle Immanuel Pattern JAYDE Midbody Pattern JAYDE Centriole Pattern JAYDE Nuclear Dot Pattern JAYDE PCNA Pattern JAYDE Nuclear Membr Pat JAYDE Speckled Pattern JAYDE Centromere Pattern 01/05/18 01/05/18 08:20 10:54 WBC RBC Hgb Hct MCV MCH MCHC RDW Plt Count MPV Absolute Neuts (auto) Neutrophils % Lymphocytes % Monocytes % Eosinophils % Basophils % Nucleated RBC % Sodium 135 L Potassium 3.6 Chloride 101 Carbon Dioxide 23 Anion Gap 11 BUN 25 H Creatinine 2.0 H Creat Clearance w eGFR 33.10 POC Glucometer 154 Random Glucose 90 Calcium 8.3 L Phosphorus 3.3 Iron Total Bilirubin 0.5 AST 58 H D ALT 43 Alkaline Phosphatase 241 H D LD Total 298 H Total Protein 8.0 Albumin 3.3 L JAYDE Screen JAYDE Homogeneous Pattern JAYDE Nucleolar Pattern JAYDE Spindle Immanuel Pattern JAYDE Midbody Pattern JAYDE Centriole Pattern JAYDE Nuclear Dot Pattern JAYDE PCNA Pattern JAYDE Nuclear Membr Pat JAYDE Speckled Pattern JAYDE Centromere Pattern Active Medications Generic Name Dose Route Start Last Admin Trade Name Freq PRN Reason Stop Dose Admin Atorvastatin Calcium 10 mg 01/02/18 22:00 01/04/18 21:22 Lipitor - PO 10 mg HS LOVELY Administration Cyanocobalamin 1,000 mcg 01/04/18 18:00 01/05/18 17:28 Vitamin B12 Injection - IM 01/08/18 18:01 1,000 mcg DAILY@1800 LOVELY Administration Ferrous Sulfate 325 mg 01/04/18 10:15 01/05/18 09:41 Feosol - PO 325 mg DAILY LOVELY Administration Hydralazine HCl 50 mg 01/02/18 14:00 01/05/18 15:24 Apresoline - PO 50 mg TID LOVELY Administration Metoprolol Succinate 25 mg 01/02/18 14:00 01/05/18 09:40 Toprol Xl - PO 25 mg DAILY LOVELY Administration ASSESSMENT/PLAN: This is a 72 year old man with a history of HTN, hyperlipidemia, type 2 DM, bioprosthetic AV replacement, pacemaker who presented to the ED with generalized weakness and body aches. 1. Anemia, thrombocytopenia - Anemia is multifactorial - iron deficiency, B12 deficiency, chronic illness /CKD - Thrombocytopenia is chronic - Hemoglobin stable - Platelets increasing - Continue ferrous sulfate, vitamin B12 - Work up for dysproteinemia in progress - Has positive JAYDE 1:80 with speckled pattern - SPEP pending - EGD and colonoscopy 01/07 - May need bone marrow biopsy 2. Abnormal liver function tests with elevated AST, alk phos, LDH - Hepatitis panel, CT abd/pelvis pending 3. Acute kidney injury on probable stage 3 CKD - Creatinine stable - JAYDE positive 1:80 speckled - SPEP pending 4. Type 2 DM - Diet controlled 5. History of bioprosthetic AV replacement now with severe bioprosthetic AR, severe TR, diastolic LV dysfunction - Plan for repeat echo in several months to monitor progression and assess need for TAVR 6. History of pacemaker for AV block 7. HTN - Continue Toprol XL, Hydralazine 8. Hyperlipidemia - Continue Lipitor Visit type - Emergency Visit Emergency Visit: Yes ED Registration Date: 01/02/18 Care time: The patient presented to the Emergency Department on the above date and was hospitalized for further evaluation of their emergent condition. - New Patient This patient is new to me today: Yes Date on this admission: 01/05/18 - Critical Care Critical Care patient: No - Discharge Referral Referred to [facility] Med P.C.: No
[2018-01-05] MEDS: ATORVASTATIN CA 10 MG TABLET (FP) PO SCH (21:38)
[2018-01-06 00:07] LABS: HBSAG SCREEN Negative (Negative); HEP A AB, IGM Negative (Negative); HEP B CORE AB, TOT Negative (Negative)
[2018-01-06] MEDS: hydrALAZINE HCL 50 MG TABLET (FP) PO SCH ×3 (05:48→21:36)
[2018-01-06 07:56] LABS: HEMATOCRIT 23.4 % (35.4-49); HEMOGLOBIN 7.7 GM/dL (11.7-16.9); MCH 26.7 pg (25.7-33.7); MEAN CELL VOLUME 80.9 fl (80-96); MEAN PLT VOLUME 7.7 fl (7.5-11.1); PLATELET COUNT 82 K/MM3 (134-434); RBC 2.89 M/mm3 (4.00-5.60); RDW 14.5 % (11.9-15.9); WHITE BLOOD COUNT 7.2 K/mm3 (4.0-10.0)
[2018-01-06 08:19] LABS: ALBUMIN 2.8 g/dl (3.4-5.0); ANION GAP 9 MMOL/L (8-16); BILIRUBIN,DIRECT 0.2 mg/dL (0.0-0.2); BLOOD UREA NITROGEN 26 mg/dL (7-18); CALCIUM 7.9 mg/dL (8.5-10.1); CHLORIDE 103 mmol/L (98-107); CO2 23 mmol/L (21-32); GLUCOSE,RANDOM 81 mg/dL (74-106); POTASSIUM 3.7 mmol/L (3.5-5.1); SGOT/AST 45 U/L (15-37); SGPT/ALT 34 U/L (12-78); SODIUM 135 mmol/L (136-145)
[2018-01-06 08:21] LABS: ALK PHOS 210 U/L (45-117); BILIRUBIN,TOTAL 0.5 mg/dL (0.2-1.0); TOT PROT 6.8 g/dl (6.4-8.2)
[2018-01-06] MEDS: metoPROLOL SUCCINATE 25 MG TAB.SR.24H (FP) PO SCH (09:16)
[2018-01-06] MEDS: FERROUS SO4 325 MG TABLET (FP) PO SCH (09:16)
--- NOTE | 2018-01-06 11:39 | PN ---
Progress Note, Physician History of Present Illness: Patient denies chest pain, dyspnea, near or true syncope or palpitations. - Current Medication List Current Medications: Active Medications Atorvastatin Calcium (Lipitor -) 10 mg PO HS [facility] Last Admin: 01/05/18 21:38 Dose: 10 mg Bisacodyl (Dulcolax -) 20 mg PO ONCE ONE Stop: 01/06/18 14:01 Cyanocobalamin (Vitamin B12 Injection -) 1,000 mcg IM DAILY@1800 [facility] Stop: 01/08/18 18:01 Last Admin: 01/05/18 17:28 Dose: 1,000 mcg Ferrous Sulfate (Feosol -) 325 mg PO DAILY [facility] Last Admin: 01/06/18 09:16 Dose: 325 mg Hydralazine HCl (Apresoline -) 50 mg PO TID [facility] Last Admin: 01/06/18 05:48 Dose: 50 mg Metoprolol Succinate (Toprol Xl -) 25 mg PO DAILY [facility] Last Admin: 01/06/18 09:16 Dose: 25 mg - Objective Vital Signs: Vital Signs Temperature 98.6 F 01/06/18 08:56 Pulse Rate 84 01/06/18 08:56 Respiratory Rate 20 01/06/18 08:56 Blood Pressure 161/71 01/06/18 08:56 O2 Sat by Pulse Oximetry (%) 98 01/06/18 09:00 Constitutional: Yes: No Distress, Calm Neck: Yes: Supple Cardiovascular: Yes: Regular Rate and Rhythm, Murmur (2/6 DM, 2/6 SM) Respiratory: Yes: Regular, CTA Bilaterally Gastrointestinal: Yes: Soft, Hypoactive Bowel Sounds Edema: No Labs: CBC, BMP 01/06/18 07:10 01/06/18 07:10 INR, PTT INR 1.12 (0.83-1.09) H 01/03/18 10:37 Problem List - Problems (1) [id number] kidney injury Code(s): N17.9 - ACUTE KIDNEY FAILURE, UNSPECIFIED; N18.9 - CHRONIC KIDNEY DISEASE, UNSPECIFIED Qualifiers: Chronic kidney disease stage: stage 3 (moderate) (2) Diastolic dysfunction without heart failure Code(s): I51.89 - OTHER ILL-DEFINED HEART DISEASES (3) History of aortic valve replacement with bioprosthetic valve Code(s): Z95.3 - PRESENCE OF XENOGENIC HEART VALVE (4) Severe aortic regurgitation Code(s): I35.1 - NONRHEUMATIC AORTIC (VALVE) INSUFFICIENCY (5) Severe tricuspid regurgitation Code(s): I07.1 - RHEUMATIC TRICUSPID INSUFFICIENCY (6) Valvular cardiomyopathy Code(s): I42.8 - OTHER CARDIOMYOPATHIES (7) Abnormal liver function tests Code(s): R94.5 - ABNORMAL RESULTS OF LIVER FUNCTION STUDIES (8) Anemia Code(s): D64.9 - ANEMIA, UNSPECIFIED Qualifiers: Anemia type: unspecified type Qualified Code(s): D64.9 - Anemia, unspecified (9) Weakness Code(s): R53.1 - WEAKNESS Assessment/Plan 01/04/2018 Echocardiography: Borderline cLVH, normal LV size and fxn, LVEF 60%, normal RV size and fxn pacer in RV, mild MR, severe TR, severe bioprosthetic AR , mild MN 1. Progressive weakness, fatigue and tiredness referable to probable anemia etiology to be determined 2. Post AVR/bioprosthesis post operative course complicated by probable valve dehiscence requiring reintervention now with severe bioprosthetic AR 3. Diastolic LV dysfunction with clinical class 0 NYHA classification LV failure 4. AV block post PPM 5. HTN 6. DM, dietary management 7. Hypercholesterolemia 8. Acute on CKD referable to diabetic nephropathy with nephrotic range proteinuria 9. Anemia and thrombocytopenia, multifactorial (components of Fe++ deficiency, chronic disease, CKD, B-12 deficiency) 10. Abnormal LFT's etiology to be determined PLAN: 1. Continue Toprol XL 25 qd and titrate dosage as needed and as tolerated 2. Continue Hydralazine 50 tid, resume ARB once renal fxn stabilizes 3. Ideally Norvasc therapy to be initiated, but prior intolerance to therapy administration 4. Continue Lipitor 10 qhs, f/u LFTs 5. Ideally should be on ASA but to be deferred pending resolution of anemia and thrombocytopenia 6. Pacemaker interrogation pending 7. F/u SPEP, UPEP 8. Given absence of symptoms of acute coronary syndrome, decompensated CHF or malignant arrhythmia, may proceed with endoscopic evaluation from CV-standpoint without further testing, recommend amoxicillin 2 gm within 30 min of colonoscopy given h/o bioprosthetic aortic valve replacement 9. F/u echo in several months to assess for progression of valvular cardiomyopathy and consideration for TAVR
[2018-01-06] MEDS ORDERED: BISACODYL 5 MG TABLET.DR (FP) PO ONE (14:00)
--- NOTE | 2018-01-06 14:06 | PN ---
Progress Note (short form) - Note Progress Note: Subjective: The patient was seen and examined at the bedside, he has no complaints at this time. For colonoscopy tomorrow Current Medications Generic Name Dose Route Start Last Admin Trade Name Carmen PRN Reason Stop Dose Admin Amoxicillin 2,000 mg 01/07/18 10:00 Amoxicillin - PO 01/07/18 10:01 ONCE ONE Atorvastatin Calcium 10 mg 01/02/18 22:00 01/05/18 21:38 Lipitor - PO 10 mg HS LOVELY Administration Cyanocobalamin 1,000 mcg 01/04/18 18:00 01/05/18 17:28 Vitamin B12 Injection - IM 01/08/18 18:01 1,000 mcg DAILY@1800 LOVELY Administration Ferrous Sulfate 325 mg 01/04/18 10:15 01/06/18 09:16 Feosol - PO 325 mg DAILY LOVELY Administration Hydralazine HCl 50 mg 01/02/18 14:00 01/06/18 05:48 Apresoline - PO 50 mg TID LOVELY Administration Metoprolol Succinate 25 mg 01/02/18 14:00 01/06/18 09:16 Toprol Xl - PO 25 mg DAILY LOVELY Administration Objective: Vital Signs Period Temp Pulse Resp BP Sys/Burnett Pulse Ox Last 24 Hr 98.2 F-99.1 F 70-84 19-20 135-167/62-71 97-98 Physical Exam: General: NAD, A&Ox3 Lungs: CTA bilaterally Heart: RRR, S1S2, +murmur Abd: Soft, non-tender, non-distended. Normoactive bowel sounds Ext: Warm, well-perfused CBCD WBC 7.2 K/mm3 (4.0-10.0) 01/06/18 07:10 RBC 2.89 M/mm3 (4.00-5.60) L 01/06/18 07:10 Hgb 7.7 GM/dL (11.7-16.9) L 01/06/18 07:10 Hct 23.4 % (35.4-49) L 01/06/18 07:10 MCV 80.9 fl (80-96) 01/06/18 07:10 MCHC 33.0 g/dl (32.0-35.9) 01/06/18 07:10 RDW 14.5 % (11.9-15.9) 01/06/18 07:10 Plt Count 82 K/MM3 (134-434) L 01/06/18 07:10 MPV 7.7 fl (7.5-11.1) 01/06/18 07:10 CMP Sodium 135 mmol/L (136-145) L 01/06/18 07:10 Potassium 3.7 mmol/L (3.5-5.1) 01/06/18 07:10 Chloride 103 mmol/L (98-107) 01/06/18 07:10 Carbon Dioxide 23 mmol/L (21-32) 01/06/18 07:10 Anion Gap 9 MMOL/L (8-16) 01/06/18 07:10 BUN 26 mg/dL (7-18) H 01/06/18 07:10 Creatinine 2.0 mg/dL (0.7-1.3) H 01/06/18 07:10 Creat Clearance w eGFR 33.10 (>60) 01/06/18 07:10 Random Glucose 81 mg/dL (74-106) 01/06/18 07:10 Calcium 7.9 mg/dL (8.5-10.1) L 01/06/18 07:10 Total Bilirubin 0.5 mg/dL (0.2-1.0) 01/06/18 07:10 AST 45 U/L (15-37) H D 01/06/18 07:10 ALT 34 U/L (12-78) D 01/06/18 07:10 Alkaline Phosphatase 210 U/L (45-117) H D 01/06/18 07:10 Total Protein 6.8 g/dl (6.4-8.2) 01/06/18 07:10 Albumin 2.8 g/dl (3.4-5.0) L 01/06/18 07:10 CARDIAC ENZYMES Creatine Kinase 180 IU/L (39-308) 01/02/18 12:26 Troponin I < 0.02 ng/ml (0.00-0.05) 01/02/18 10:55 Microbiology 01/02/18 14:16 Blood - Peripheral Venous Blood Culture - Preliminary NO GROWTH OBTAINED AFTER 72 HOURS, INCUBATION TO CONTINUE FOR 2 DAYS. 01/02/18 14:16 Blood - Peripheral Venous Blood Culture - Preliminary NO GROWTH OBTAINED AFTER 72 HOURS, INCUBATION TO CONTINUE FOR 2 DAYS. 01/02/18 11:00 Urine - Urine Clean Catch Urine Culture - Final NO GROWTH OBTAINED 01/02/18 16:30 Nasopharyngeal Swab Influenza Types A,B Antigen - Final 01/02/18 16:30 Nasopharyngeal Swab - Final Assessment: This is a 72 year old male with PMHx of HTN, HLD, NIDDM, s/p aortic valve replacement, PPM, who presented to the ED with generalized weakness and body aches Plan: 1) Anemia - Patient's pcp, Dr. Ely in [place] reports the patient had a recent GI bleed for which he required PRBC transfusion - Iron studies reviewed, continue ferrous sulfate. Can give IV iron, will defer to hematology - Guiac negative per GI - Appreciate hematology consult - Appreciate GI consult: for colonoscopy tomorrow. CTAP with short segment of circumferential thickening in the distal sigmoid colon and thickening of the retosigmoid juntion wall 2) R/o multiple myeloma - MM workup per oncology 2) Thrombocytopenia - Chronic - Labs from pcp's office show platelet of 74 on 08/05/17 - Appreciate hematology consult 3) Abnormal liver function tests - GGT 285 - Hepatitis panel reviewed - CTAP reviewed 4) Enlarged prostate - Per GI evaluation - PSA 1.1 on 08/05/17 5) CKD - Patient Cr 08/05/17 was 3.[address] Dr. Ely, he was being worked up for CKD and they were just monitoring his kidney function at this time - Cr stable, 2.2 today - Discussed with Dr. Crawley - F/u Spep 6) DM - BGM ACHS - ISS ACHS 7) Post AVR/bioprosthesis - Continue Toprol XL - Ideally should be on ASA, however anemia and thrombocytopenia workup ongoing, will defer starting for now - Will received Amoxicillin 2gm within 30 min of colonoscopy given bioprosthetic aortic valve replacement 8) PPM - F/u interrogation 9) Probable diastolic LV dysfunction - ECHO reviewed: will need repeat ECHO in 3-4 months to assess progression of valvular cardiomyopathy and consideration for TAVR 10) B12 deficiency - Visit type - Emergency Visit Emergency Visit: Yes ED Registration Date: 01/02/18 Care time: The patient presented to the Emergency Department on the above date and was hospitalized for further evaluation of their emergent condition. - New Patient This patient is new to me today: No - Critical Care Critical Care patient: No
[2018-01-06] MEDS ORDERED: PEG3350/SOD SULF,BICARB,CL/KCL 4,000 ML SOLN.RECON PO ONE (15:00)
[2018-01-06 16:30] LABS: GLIADIN ANTIBODY IGA 11 units (0-19); GLIADIN ANTIBODY IGG 28 units (0-19); TRANSGLUTAMINASE IGG 8 U/mL (0-5)
--- NOTE | 2018-01-06 17:56 | PN ---
Progress Note (short form) - Note Progress Note: Renal follow up for CKD Pt seen and examined at the bedside no acute complaints Vital Signs Temperature 98.8 F 01/06/18 15:05 Pulse Rate 84 01/06/18 08:56 Respiratory Rate 20 01/06/18 08:56 Blood Pressure 161/71 01/06/18 08:56 O2 Sat by Pulse Oximetry (%) 98 01/06/18 09:00 Intake & Output 01/03/18 01/04/18 01/05/18 01/06/18 23:59 23:59 23:59 23:59 Intake Total 1000 2492 1200 850 Output Total 1075 1835 Balance 1000 2492 125 -985 Weight 71.577 kg 71.214 kg NAD RRR cTA soft NT/ND No LE edema CBC, BMP 01/06/18 07:10 01/06/18 07:10 Current Medications Amoxicillin (Amoxicillin -) 2,000 mg PO ONCE ONE Stop: 01/07/18 10:01 Atorvastatin Calcium (Lipitor -) 10 mg PO HS [facility] Last Admin: 01/05/18 21:38 Dose: 10 mg Cyanocobalamin (Vitamin B12 Injection -) 1,000 mcg IM DAILY@1800 [facility] Stop: 01/08/18 18:01 Last Admin: 01/05/18 17:28 Dose: 1,000 mcg Ferrous Sulfate (Feosol -) 325 mg PO DAILY [facility] Last Admin: 01/06/18 09:16 Dose: 325 mg Hydralazine HCl (Apresoline -) 50 mg PO TID [facility] Last Admin: 01/06/18 14:47 Dose: 50 mg Metoprolol Succinate (Toprol Xl -) 25 mg PO DAILY [facility] Last Admin: 01/06/18 09:16 Dose: 25 mg 72 year old gentleman with Hx of Hypertension, Hyperlipidemia, CKD, Aortic Valve Replacement, PPM who presented with diffuse body aches and weakness and found to have anemia and elevated BUN/Cr. #Acute on Chronic Renal Insufficiency #CKD #Hypertension #Anemia #Abnormal LFT's Renal function improved and stable stable, outpatient Cr was 3.1 pt with nephrotic range proteinirua likely from diabetic nephropathy however has positive JAYDE unlikely to have Lupus given he is a male and age but will check Anti-DS DNA SPEP pending Heme following for Anemia Dov Crawley DO
[2018-01-06] MEDS: CYANOCOBALAMIN (VITAMIN B-12) 1000 MCG/1 ML VIAL IM SCH (18:57)
[2018-01-06] MEDS: ATORVASTATIN CA 10 MG TABLET (FP) PO SCH (21:36)
[2018-01-07] MEDS: hydrALAZINE HCL 50 MG TABLET (FP) PO SCH ×3 (06:07→21:13)
[2018-01-07] MEDS ORDERED: AMPICILLIN SODIUM 2 GM VIAL ONE (08:18)
[2018-01-07] MEDS ORDERED: AMOXICILLIN 500 MG CAPSULE (FP) PO ONE (08:30)
[2018-01-07 08:33] LABS: BASO % 0.4 % (0-2.0); EOS % 0.7 % (0-4.5); HEMATOCRIT 25.4 % (35.4-49); HEMOGLOBIN 8.4 GM/dL (11.7-16.9); LYMPH % 22.2 % (8-40); MCH 26.9 pg (25.7-33.7); MEAN CELL VOLUME 81.4 fl (80-96); MEAN PLT VOLUME 8.2 fl (7.5-11.1); MONO % 10.3 % (3.8-10.2); NEUT % 66.4 % (42.8-82.8); PLATELET COUNT 116 K/MM3 (134-434); RBC 3.12 M/mm3 (4.00-5.60); RDW 14.7 % (11.9-15.9); WHITE BLOOD COUNT 7.4 K/mm3 (4.0-10.0)
[2018-01-07 09:05] LABS: ALBUMIN 2.9 g/dl (3.4-5.0); ANION GAP 8 MMOL/L (8-16); BLOOD UREA NITROGEN 20 mg/dL (7-18); CALCIUM 8.1 mg/dL (8.5-10.1); CHLORIDE 102 mmol/L (98-107); CO2 26 mmol/L (21-32); GLUCOSE,RANDOM 80 mg/dL (74-106); POTASSIUM 3.6 mmol/L (3.5-5.1); SODIUM 136 mmol/L (136-145)
[2018-01-07 09:09] LABS: ALK PHOS 204 U/L (45-117); BILIRUBIN,TOTAL 0.6 mg/dL (0.2-1.0); CREATININE 2.1 mg/dL (0.7-1.3); SGOT/AST 44 U/L (15-37); SGPT/ALT 33 U/L (12-78); TOT PROT 7.1 g/dl (6.4-8.2)
--- NOTE | 2018-01-07 11:15 | PN ---
Progress Note (short form) - Note Progress Note: EGD/COlonoscopy complete. reports left in the procedural section of the physical chart and to be scanned into [employer] Problem List - Problems (1) Anemia Code(s): D64.9 - ANEMIA, UNSPECIFIED Qualifiers: Anemia type: unspecified type Qualified Code(s): D64.9 - Anemia, unspecified (2) Abnormal liver function tests Code(s): R94.5 - ABNORMAL RESULTS OF LIVER FUNCTION STUDIES (3) Murmur, cardiac Code(s): R01.1 - CARDIAC MURMUR, UNSPECIFIED (4) Abnormal CT of the abdomen Code(s): R93.5 - ABN FINDINGS ON DX IMAGING OF ABD [employer]IONS, [employer] RETROPERITON
[2018-01-07] MEDS: FERROUS SO4 325 MG TABLET (FP) PO SCH (11:39)
[2018-01-07] MEDS: metoPROLOL SUCCINATE 25 MG TAB.SR.24H (FP) PO SCH (11:39)
[2018-01-07] MEDS: ATENOLOL 25 MG TABLET (FP) PO SCH (14:10)
[2018-01-07 14:15] LABS: HGB SOLUBILITY Negative (Negative); Hgb A 97.8 % (96.4-98.8); Hgb C 0 % (0.0); Hgb F 0 % (0.0-2.0); Hgb S 0 % (0.0)
[2018-01-07] MEDS ORDERED: Darbepoetin Alfa in Polysorbat 25 MCG/0.4 ML DISP.SYRIN SQ ONE (14:30)
[2018-01-07] MEDS ORDERED: IRON SUCROSE INJECTION 100 MG in SODIUM CHLORIDE 95 ML IVPB ONE (15:00)
--- NOTE | 2018-01-07 15:46 | PN ---
Progress Note, Physician History of Present Illness: Patient denies chest pain, dyspnea, near or true syncope or palpitations. EGD/ colonoscopy performed, polyps seen. - Current Medication List Current Medications: Active Medications Atenolol (Tenormin -) 25 mg PO DAILY [facility] Last Admin: 01/07/18 14:10 Dose: 25 mg Atorvastatin Calcium (Lipitor -) 10 mg PO HS [facility] Last Admin: 01/06/18 21:36 Dose: 10 mg Cyanocobalamin (Vitamin B12 Injection -) 1,000 mcg IM DAILY@1800 [facility] Stop: 01/08/18 18:01 Last Admin: 01/06/18 18:57 Dose: 1,000 mcg Ferrous Sulfate (Feosol -) 325 mg PO DAILY [facility] Last Admin: 01/07/18 11:39 Dose: 325 mg Hydralazine HCl (Apresoline -) 50 mg PO TID [facility] Last Admin: 01/07/18 14:10 Dose: 50 mg Metoprolol Succinate (Toprol Xl -) 25 mg PO DAILY [facility] Last Admin: 01/07/18 11:39 Dose: 25 mg - Objective Vital Signs: Vital Signs Temperature 98.6 F 01/07/18 13:18 Pulse Rate 82 01/07/18 13:18 Respiratory Rate 20 01/07/18 13:18 Blood Pressure 146/63 01/07/18 13:18 O2 Sat by Pulse Oximetry (%) 98 01/07/18 11:19 Constitutional: Yes: No Distress, Calm Neck: Yes: Supple Cardiovascular: Yes: Regular Rate and Rhythm, Murmur (2/6 DM, 2/6 SM) Respiratory: Yes: Regular, CTA Bilaterally Gastrointestinal: Yes: Normal Bowel Sounds, Soft Edema: No Labs: CBC, BMP 01/07/18 07:30 01/07/18 07:30 INR, PTT INR 1.12 (0.83-1.09) H 01/03/18 10:37 Problem List - Problems (1) Jtzsc-ga-ogfubjh kidney injury Code(s): N17.9 - ACUTE KIDNEY FAILURE, UNSPECIFIED; N18.9 - CHRONIC KIDNEY DISEASE, UNSPECIFIED Qualifiers: Chronic kidney disease stage: stage 3 (moderate) (2) Diastolic dysfunction without heart failure Code(s): I51.89 - OTHER ILL-DEFINED HEART DISEASES (3) History of aortic valve replacement with bioprosthetic valve Code(s): Z95.3 - PRESENCE OF XENOGENIC HEART VALVE (4) Severe aortic regurgitation Code(s): I35.1 - NONRHEUMATIC AORTIC (VALVE) INSUFFICIENCY (5) Severe tricuspid regurgitation Code(s): I07.1 - RHEUMATIC TRICUSPID INSUFFICIENCY (6) Valvular cardiomyopathy Code(s): I42.8 - OTHER CARDIOMYOPATHIES (7) Abnormal liver function tests Code(s): R94.5 - ABNORMAL RESULTS OF LIVER FUNCTION STUDIES (8) Anemia Code(s): D64.9 - ANEMIA, UNSPECIFIED Qualifiers: Anemia type: unspecified type Qualified Code(s): D64.9 - Anemia, unspecified (9) Weakness Code(s): R53.1 - WEAKNESS Assessment/Plan 01/04/2018 Echocardiography: Borderline cLVH, normal LV size and fxn, LVEF 60%, normal RV size and fxn pacer in RV, mild MR, severe TR, severe bioprosthetic AR , mild ND 1. Progressive weakness, fatigue and tiredness referable to probable anemia etiology to be determined 2. Post AVR/bioprosthesis post operative course complicated by probable valve dehiscence requiring reintervention now with severe bioprosthetic AR 3. Diastolic LV dysfunction with clinical class 0 NYHA classification LV failure 4. AV block post PPM 5. HTN 6. DM, dietary management 7. Hypercholesterolemia 8. Acute on CKD referable to diabetic nephropathy with nephrotic range proteinuria 9. Anemia and thrombocytopenia, multifactorial (components of Fe++ deficiency, chronic disease, CKD, B-12 deficiency) 10. Abnormal LFT's etiology to be determined PLAN: 1. Continue Toprol XL 25 qd and titrate dosage as needed and as tolerated 2. Continue Hydralazine 50 tid, resume ARB once renal fxn stabilizes 3. Ideally Norvasc therapy to be initiated, but prior intolerance to therapy administration 4. Continue Lipitor 10 qhs, f/u LFTs 5. Ideally should be on ASA but to be deferred pending resolution of anemia and thrombocytopenia 6. Pacemaker interrogation pending 7. F/u SPEP, UPEP, Anti-DS DNA 8. Given absence of symptoms of acute coronary syndrome, decompensated CHF or malignant arrhythmia, may proceed with endoscopic evaluation from CV-standpoint without further testing, recommend amoxicillin 2 gm within 30 min of colonoscopy given h/o bioprosthetic aortic valve replacement 9. F/u echo in several months to assess for progression of valvular cardiomyopathy and consideration for TAVR
[2018-01-07] MEDS: CYANOCOBALAMIN (VITAMIN B-12) 1000 MCG/1 ML VIAL IM SCH (17:31)
--- NOTE | 2018-01-07 17:46 | PN ---
Progress Note (short form) - Note Progress Note: Renal follow up for CKD Pt seen and examined at the bedside no acute complaints Vital Signs Temperature 98.8 F 01/06/18 15:05 Pulse Rate 84 01/06/18 08:56 Respiratory Rate 20 01/06/18 08:56 Blood Pressure 161/71 01/06/18 08:56 O2 Sat by Pulse Oximetry (%) 98 01/06/18 09:00 Intake & Output 01/03/18 01/04/18 01/05/18 01/06/18 23:59 23:59 23:59 23:59 Intake Total 1000 2492 1200 850 Output Total 1075 1835 Balance 1000 2492 125 -985 Weight 71.577 kg 71.214 kg NAD RRR cTA soft NT/ND No LE edema CBC, BMP 01/07/18 07:30 01/07/18 07:30 Current Medications Atenolol (Tenormin -) 25 mg PO DAILY [facility] Last Admin: 01/07/18 14:10 Dose: 25 mg Atorvastatin Calcium (Lipitor -) 10 mg PO HS [facility] Last Admin: 01/06/18 21:36 Dose: 10 mg Cyanocobalamin (Vitamin B12 Injection -) 1,000 mcg IM DAILY@1800 [facility] Stop: 01/08/18 18:01 Last Admin: 01/07/18 17:31 Dose: 1,000 mcg Ferrous Sulfate (Feosol -) 325 mg PO DAILY [facility] Last Admin: 01/07/18 11:39 Dose: 325 mg Hydralazine HCl (Apresoline -) 50 mg PO TID [facility] Last Admin: 01/07/18 14:10 Dose: 50 mg Metoprolol Succinate (Toprol Xl -) 25 mg PO DAILY [facility] Last Admin: 01/07/18 11:39 Dose: 25 mg 72 year old gentleman with Hx of Hypertension, Hyperlipidemia, CKD, Aortic Valve Replacement, PPM who presented with diffuse body aches and weakness and found to have anemia and elevated BUN/Cr. #Acute on Chronic Renal Insufficiency #CKD #Hypertension #Anemia #Abnormal LFT's Renal function improved and stable stable, better then outpatient Cr of 3.1 Anti-DS DNA pending SPEP pending Hgb stable, Plt count improved start aranesp SC and give additional IV iron today EGD/Colonoscopy report noted Dov Crawley DO
--- NOTE | 2018-01-07 18:15 | PN ---
Physical Exam: SUBJECTIVE: Patient seen and examined. He has no complaints. OBJECTIVE: Vital Signs Period Temp Pulse Resp BP Sys/Burnett Pulse Ox Last 24 Hr 97.8 F-98.7 F 73-87 16-22 103-165/62-79 98-100 GENERAL: The patient is awake, alert, and fully oriented, in no acute distress. LUNGS: Breath sounds equal, clear to auscultation bilaterally, no wheezes, no crackles, no accessory muscle use. HEART: Regular rate and rhythm, S1, S2, (+) 2/6 SM/DM. ABDOMEN: Soft, nontender, nondistended, normoactive bowel sounds, no guarding, no rebound, no hepatosplenomegaly, no masses. EXTREMITIES: 2+ pulses, warm, well-perfused, no edema. Laboratory Results - last 24 hr 01/04/18 01/05/18 01/07/18 06:00 08:20 07:30 WBC 7.4 RBC 3.12 L Hgb 8.4 L Hct 25.4 L MCV 81.4 MCH 26.9 MCHC 33.0 RDW 14.7 Plt Count 116 L D MPV 8.2 Absolute Neuts (auto) 4.9 Neutrophils % 66.4 Lymphocytes % 22.2 D Monocytes % 10.3 H Eosinophils % 0.7 Basophils % 0.4 Nucleated RBC % 0 Hemoglobin A 97.8 Hemoglobin A2 2.2 Hemoglobin C 0 Hemoglobin S 0 Variant Hemoglobin 0.0 Hemoglobin Interpret Maternal Rh 0 Hemoglobin Solubility Negative Sodium Potassium Chloride Carbon Dioxide Anion Gap BUN Creatinine Creat Clearance w eGFR Random Glucose Calcium Total Bilirubin AST ALT Alkaline Phosphatase Total Protein Total Protein (PEP) 6.5 Albumin Albumin (PEP) 3.1 Globulin 3.4 Albumin/Globulin Ratio 0.9 Beta Globulins 0.8 ELLIE M-Judah Not observed 01/07/18 07:30 WBC RBC Hgb Hct MCV MCH MCHC RDW Plt Count MPV Absolute Neuts (auto) Neutrophils % Lymphocytes % Monocytes % Eosinophils % Basophils % Nucleated RBC % Hemoglobin A Hemoglobin A2 Hemoglobin C Hemoglobin S Variant Hemoglobin Hemoglobin Interpret Maternal Rh Hemoglobin Solubility Sodium 136 Potassium 3.6 Chloride 102 Carbon Dioxide 26 Anion Gap 8 BUN 20 H Creatinine 2.1 H Creat Clearance w eGFR 31.29 Random Glucose 80 Calcium 8.1 L Total Bilirubin 0.6 AST 44 H ALT 33 Alkaline Phosphatase 204 H Total Protein 7.1 Total Protein (PEP) Albumin 2.9 L Albumin (PEP) Globulin Albumin/Globulin Ratio Beta Globulins ELLIE M-Judah Active Medications Generic Name Dose Route Start Last Admin Trade Name Carmen PRN Reason Stop Dose Admin Atenolol 25 mg 01/07/18 12:45 01/07/18 14:10 Tenormin - PO 25 mg DAILY LOVELY Administration Atorvastatin Calcium 10 mg 01/02/18 22:00 01/06/18 21:36 Lipitor - PO 10 mg HS LOVELY Administration Cyanocobalamin 1,000 mcg 01/04/18 18:00 01/07/18 17:31 Vitamin B12 Injection - IM 01/08/18 18:01 1,000 mcg DAILY@1800 LOVELY Administration Ferrous Sulfate 325 mg 01/04/18 10:15 01/07/18 11:39 Feosol - PO 325 mg DAILY LOVELY Administration Hydralazine HCl 50 mg 01/02/18 14:00 01/07/18 14:10 Apresoline - PO 50 mg TID LOVELY Administration Metoprolol Succinate 25 mg 01/02/18 14:00 01/07/18 11:39 Toprol Xl - PO 25 mg DAILY LOVELY Administration ASSESSMENT/PLAN: This is a 72 year old man with a history of HTN, hyperlipidemia, type 2 DM, bioprosthetic AV replacement, pacemaker who presented to the ED with generalized weakness and body aches. 1. Anemia, thrombocytopenia - Anemia is multifactorial - iron deficiency, B12 deficiency, chronic illness /CKD - Thrombocytopenia is chronic - Hemoglobin stable - Platelets increasing - Continue ferrous sulfate, vitamin B12 - Work up for dysproteinemia in progress - Has positive JAYDE 1:80 with speckled pattern - Anti-DS DNA pending - SPEP pending - Transglutaminase and anti-gliadin antibodies positive - EGD showed gastritis, brown-stained gastric body and cardia - follow up pathology - Colonoscopy showed multiple polyps, internal hemorrhoids - follow up pathology - May need bone marrow biopsy 2. Abnormal liver function tests with elevated AST, alk phos, LDH - Hepatitis A IgM, HBsAg, HBsAb, HBcAb, HCV Ab negative 3. Acute kidney injury on probable stage 3 CKD - Creatinine stable - JAYDE positive 1:80 speckled - Anti-DS DNA pending - SPEP pending 4. Type 2 DM - Diet controlled 5. History of bioprosthetic AV replacement now with severe bioprosthetic AR, severe TR, diastolic LV dysfunction - Plan for repeat echo in several months to monitor progression and assess need for TAVR 6. History of pacemaker for AV block 7. HTN - Continue Toprol XL, Hydralazine 8. Hyperlipidemia - Continue Lipitor Visit type - Emergency Visit Emergency Visit: Yes ED Registration Date: 01/02/18 Care time: The patient presented to the Emergency Department on the above date and was hospitalized for further evaluation of their emergent condition. - New Patient This patient is new to me today: No - Critical Care Critical Care patient: No - Discharge Referral Referred to [facility] No
[2018-01-07] MEDS: ATORVASTATIN CA 10 MG TABLET (FP) PO SCH (21:13)
--- NOTE | 2018-01-07 23:54 | PN ---
Progress Note (short form) - Note Progress Note: Patient seen and examined Denies any complaints Last Vital Signs Temp Pulse Resp BP Pulse Ox 99.2 F 73 20 131/52 99 01/08/18 05:30 01/08/18 05:30 01/08/18 02:00 01/08/18 05:30 01/07/18 21:00 Cor: RSR, No murmurs, No gallops Lungs: Clear to P&A Abd: Soft, Normal bowel sounds, No organomegaly Ext:No significant edema Abnormal Lab Results 01/07/18 01/08/18 07:30 07:00 RBC 2.70 L Hgb 7.3 L Hct 21.8 L Plt Count 89 L D BUN 20 H Creatinine 2.1 H Calcium 8.1 L AST 44 H Alkaline Phosphatase 204 H Albumin 2.9 L Active Medications Generic Name Dose Route Start Last Admin Trade Name Freq PRN Reason Stop Dose Admin Atenolol 25 mg 01/07/18 12:45 01/07/18 14:10 Tenormin - PO 25 mg DAILY LOVELY Administration Atorvastatin Calcium 10 mg 01/02/18 22:00 01/07/18 21:13 Lipitor - PO 10 mg HS LOVELY Administration Cyanocobalamin 1,000 mcg 01/04/18 18:00 01/07/18 17:31 Vitamin B12 Injection - IM 01/08/18 18:01 1,000 mcg DAILY@1800 LOVELY Administration Ferrous Sulfate 325 mg 01/04/18 10:15 01/07/18 11:39 Feosol - PO 325 mg DAILY LOVELY Administration Hydralazine HCl 50 mg 01/02/18 14:00 01/08/18 06:03 Apresoline - PO 50 mg TID LOVELY Administration Metoprolol Succinate 25 mg 01/02/18 14:00 01/07/18 11:39 Toprol Xl - PO 25 mg DAILY LOVELY Administration A/P This is a 72 year old man with a history of HTN, hyperlipidemia, type 2 DM, bioprosthetic AV replacement, pacemaker, CKD, + JAYDE, who presented to the ED with generalized weakness and body aches. Anemia--multifactorial s/p EGD/colonoscopy--gastritis/polyps component of iron deficiency anemia + anemia of chronic kidney disease r/o hemolyis--although hgb stable s/p small dose of AUGUSTA/iron May need transfusionof drops furthe IRon sat low/B12/low nl/[id number] protein studies show polyclonal gammopathy thrombocytopenia -- chronic ? ITP will check flow.cyrtogeneytics/FISH CT abdomen--cant r/o mesenterc adenopathy check CT chest Out patient PET-CT Abnormal liver function tests with elevated AST, alk phos, LDH ? congestive hepatopathy ? autoimmune diseae + JAYDE Acute kidney injury on probable stage 3 CKD
[2018-01-08] MEDS: hydrALAZINE HCL 50 MG TABLET (FP) PO SCH ×3 (06:03→21:06)
[2018-01-08 08:20] LABS: BASO % 0.4 % (0-2.0); EOS % 0.7 % (0-4.5); HEMATOCRIT 21.8 % (35.4-49); HEMOGLOBIN 7.3 GM/dL (11.7-16.9); LYMPH % 31.3 % (8-40); MCH 26.9 pg (25.7-33.7); MCHC 33.3 g/dl (32.0-35.9); MEAN CELL VOLUME 80.8 fl (80-96); MEAN PLT VOLUME 7.5 fl (7.5-11.1); NEUT % 57.6 % (42.8-82.8); PLATELET COUNT 89 K/MM3 (134-434); RDW 14.5 % (11.9-15.9); WHITE BLOOD COUNT 7.1 K/mm3 (4.0-10.0)
[2018-01-08 08:45] LABS: ANION GAP 7 MMOL/L (8-16); BLOOD UREA NITROGEN 26 mg/dL (7-18); CALCIUM 7.6 mg/dL (8.5-10.1); CHLORIDE 103 mmol/L (98-107); CO2 26 mmol/L (21-32); CREATININE 2.3 mg/dL (0.7-1.3); GLUCOSE,RANDOM 83 mg/dL (74-106); POTASSIUM 3.4 mmol/L (3.5-5.1); SODIUM 136 mmol/L (136-145)
[2018-01-08] MEDS: ATENOLOL 25 MG TABLET (FP) PO SCH (09:22)
[2018-01-08] MEDS: metoPROLOL SUCCINATE 25 MG TAB.SR.24H (FP) PO SCH (09:22)
[2018-01-08] MEDS: FERROUS SO4 325 MG TABLET (FP) PO SCH (09:22)
--- NOTE | 2018-01-08 09:51 | PN ---
Progress Note (short form) - Note Progress Note: Chief Complaint: Events noted, notes reviewed, denies any chest pain or dyspnea , anemia persistent History of Present Illness: Seen and examined. Events noted, notes reviewed, denies any chest pain or dyspnea, anemia persistent Echocardiography dated 01/04/2018 revealed borderline cLVH, normal LV size and function, LVEF 60%, normal RV size and function, pacer in RV, mild MR, severe TR , severe bioprosthetic AR, mild AK Current Medications: Current Medications Atenolol (Tenormin -) 25 mg PO DAILY [facility] Last Admin: 01/08/18 09:22 Dose: 25 mg Atorvastatin Calcium (Lipitor -) 10 mg PO HS [facility] Last Admin: 01/07/18 21:13 Dose: 10 mg Cyanocobalamin (Vitamin B12 Injection -) 1,000 mcg IM DAILY@1800 [facility] Stop: 01/08/18 18:01 Last Admin: 01/07/18 17:31 Dose: 1,000 mcg Ferrous Sulfate (Feosol -) 325 mg PO DAILY [facility] Last Admin: 01/08/18 09:22 Dose: 325 mg Hydralazine HCl (Apresoline -) 50 mg PO TID [facility] Last Admin: 01/08/18 06:03 Dose: 50 mg Metoprolol Succinate (Toprol Xl -) 25 mg PO DAILY [facility] Last Admin: 01/08/18 09:22 Dose: 25 mg Review of Systems - Review of Systems Constitutional: reports: Weakness denies: Chills or Fever Cardiovascular: as noted above Gastrointestinal: denies: Nausea, Vomiting, Diarrhea, Constipation or Abdominal Pain Genitourinary: No symptoms reported Neurological: No symptoms reported - Objective Vital Signs: Last Vital Signs Temp Pulse Resp BP Pulse Ox 97.8 F 84 16 126/77 99 01/08/18 08:00 01/08/18 08:00 01/08/18 08:00 01/08/18 08:00 01/07/18 21:00 Intake & Output 01/05/18 01/06/18 01/07/18 01/08/18 23:59 23:59 23:59 23:59 Intake Total 1200 1050 4303 Output Total 1075 1835 800 Balance 125 -785 3503 Weight 157 lb Neck: Supple negative JVD no bruit Cardiovascular: S1 S2 Regular Rate and Rhythm Grade 2/6 SHASTA and Grade 2-3/6 Diastolic AI Murmur Respiratory: Clear to A&P Gastrointestinal: Soft Benign Normal Bowel Sounds Ext: Negative Edema Bilaterally Labs: CBC, BMP 01/08/18 07:00 01/08/18 07:00 Hepatic Panel Total Bilirubin 0.6 mg/dL (0.2-1.0) 01/07/18 07:30 Direct Bilirubin 0.2 mg/dL (0.0-0.2) 01/06/18 07:10 AST 44 U/L (15-37) H 01/07/18 07:30 ALT 33 U/L (12-78) 01/07/18 07:30 Alkaline Phosphatase 204 U/L (45-117) H 01/07/18 07:30 Albumin 2.9 g/dl (3.4-5.0) L 01/07/18 07:30 Assessment/Plan: ASSESSMENT: 1. Anemia and thrombocytopenia etiology to be determined 2. Post AVR/bioprosthesis post operative course complicated by probable valve dehiscence requiring re-intervention, with severe bioprosthetic regurgitation 3. Diastolic LV dysfunction with clinical class 0 NYHA classification LV failure 4. AV block post PPM 5. HTN 6. DM, dietary management 7. Hypercholesterolemia 8. CKD 9. Hypokalemia PLAN: 1. Continue Toprol XL and titrate dosage as needed and as tolerated, Atenolol ordered unclear reason will D/C 2. Continue Hydralazine 3. Ideally Norvasc therapy to be initiated, but prior intolerance to therapy administration 4. Ideally should be on ASA but to be deferred pending resolution of anemia and thrombocytopenia 5. Pacemaker interrogation still pending, [employer]'s device 7. Outpatient F/U for the above noted valvular pathology, repeat echocardiography in 4-6 months, above was reviewed in detail with the patient and his son who was contacted via telephone Duane Boston MD
--- NOTE | 2018-01-08 10:29 | PN ---
GI Progress Note Subjective: No acute events No abdominal pain No rectal bleeding or melena - Objective Vital Signs: Vital Signs Temperature 97.8 F 01/08/18 08:00 Pulse Rate 84 01/08/18 08:00 Respiratory Rate 16 01/08/18 08:00 Blood Pressure 126/77 01/08/18 08:00 O2 Sat by Pulse Oximetry (%) 99 01/07/18 21:00 Constitutional: Calm Cardiovascular: Yes: Regular Rate and Rhythm, Murmur (systolic murmur LSB, systolic/diastolic murmur RSB) Respiratory: Yes: CTA Bilaterally Gastrointestinal Inspection: No: Distention ...Auscultate: Yes: Normoactive Bowel Sounds ...Palpate: No: Hepatomegaly, Splenomegaly, Tenderness ...Percussion: No: Tympanitic Edema: No (No LE edema) Neurological: Yes: Alert, Oriented Labs: CBC, BMP 01/08/18 07:00 01/08/18 07:00 INR, PTT INR 1.12 (0.83-1.09) H 01/03/18 10:37 Problem List - Problems (1) Anemia Assessment/Plan: Normocytic anemia: No overt bleeding s/p EGD and colonoscopy Component of iron def however ? alternate etiology of anemia/thrombocytopenia as well. Continued heme eval In terms of celiac serologies antigliadin Ab IgG and TTG IgG were weakly positive but duodenal mucosa appeared normal without evifdence of significant villous atrophy. I placed him on a gluten free diet and await biopsy results. Code(s): D64.9 - ANEMIA, UNSPECIFIED Qualifiers: Anemia type: unspecified type Qualified Code(s): D64.9 - Anemia, unspecified (2) Abnormal liver function tests Assessment/Plan: ? reflective of component of congestive hepatopathy Ordered schistosomiasis stool study / Antibody Smooth muscle antibody ordered Code(s): R94.5 - ABNORMAL RESULTS OF LIVER FUNCTION STUDIES (3) Benign neoplasm of colon, unspecified Assessment/Plan: Multiple colon polyps noted on colonoscopy yesterday. Await pathology results Repeat colonoscopy 1 year given multiple polyps and fair colon prep in some areas of the colon Code(s): D12.6 - BENIGN NEOPLASM OF COLON, UNSPECIFIED
[2018-01-08 11:13] LABS: HEMATOCRIT 24.1 % (35.4-49); HEMOGLOBIN 7.8 GM/dL (11.7-16.9); MCH 26.3 pg (25.7-33.7); MCHC 32.4 g/dl (32.0-35.9); MEAN CELL VOLUME 81.2 fl (80-96); MEAN PLT VOLUME 7.2 fl (7.5-11.1); PLATELET COUNT 95 K/MM3 (134-434); RBC 2.97 M/mm3 (4.00-5.60); RDW 14.6 % (11.9-15.9); WHITE BLOOD COUNT 7.6 K/mm3 (4.0-10.0)
[2018-01-08 11:42] LABS: LDH 243 U/L (87-241); URIC ACID 7.8 mg/dL (2.6-7.2)
--- NOTE | 2018-01-08 15:06 | PN ---
Progress Note (short form) - Note Progress Note: ckd anemia' thrombocytopenia Current Medications Atorvastatin Calcium (Lipitor -) 10 mg PO HS [facility] Last Admin: 01/07/18 21:13 Dose: 10 mg Cyanocobalamin (Vitamin B12 Injection -) 1,000 mcg IM DAILY@1800 [facility] Stop: 01/08/18 18:01 Last Admin: 01/07/18 17:31 Dose: 1,000 mcg Ferrous Sulfate (Feosol -) 325 mg PO DAILY [facility] Last Admin: 01/08/18 09:22 Dose: 325 mg Hydralazine HCl (Apresoline -) 50 mg PO TID [facility] Last Admin: 01/08/18 13:30 Dose: 50 mg Metoprolol Succinate (Toprol Xl -) 50 mg PO DAILY [facility] Last Vital Signs Temp Pulse Resp BP Pulse Ox 98.6 F 75 16 153/66 99 01/08/18 14:45 01/08/18 14:45 01/08/18 14:45 01/08/18 14:45 01/08/18 09:00 CBC, BMP 01/08/18 10:55 01/08/18 07:00
[2018-01-08] MEDS: CYANOCOBALAMIN (VITAMIN B-12) 1000 MCG/1 ML VIAL IM SCH (17:22)
--- NOTE | 2018-01-08 18:40 | PN ---
Progress Note (short form) - Note Progress Note: Subjective: The patient was seen and examined at the bedside, he has no complaints at this time. For 1u PRBC transfusion today Current Medications Generic Name Dose Route Start Last Admin Trade Name Carmen PRN Reason Stop Dose Admin Atorvastatin Calcium 10 mg 01/02/18 22:00 01/07/18 21:13 Lipitor - PO 10 mg HS LOVELY Administration Ferrous Sulfate 325 mg 01/04/18 10:15 01/08/18 09:22 Feosol - PO 325 mg DAILY LOVELY Administration Hydralazine HCl 50 mg 01/02/18 14:00 01/08/18 13:30 Apresoline - PO 50 mg TID LOVELY Administration Metoprolol Succinate 50 mg 01/09/18 10:00 Toprol Xl - PO DAILY LOVELY Objective: Vital Signs Period Temp Pulse Resp BP Sys/Burnett Pulse Ox Last 24 Hr 97.8 F-99.2 F 73-105 16-20 126-153/52-77 99-99 Physical Exam: General: NAD, A&Ox3 Lungs: CTA bilaterally Heart: RRR, S1S2, +murmur Abd: Soft, non-tender, non-distended. Normoactive bowel sounds Ext: Warm, well-perfused CBCD WBC 7.6 K/mm3 (4.0-10.0) 01/08/18 10:55 RBC 2.97 M/mm3 (4.00-5.60) L 01/08/18 10:55 Hgb 7.8 GM/dL (11.7-16.9) L 01/08/18 10:55 Hct 24.1 % (35.4-49) L 01/08/18 10:55 MCV 81.2 fl (80-96) 01/08/18 10:55 MCHC 32.4 g/dl (32.0-35.9) 01/08/18 10:55 RDW 14.6 % (11.9-15.9) 01/08/18 10:55 Plt Count 95 K/MM3 (134-434) L 01/08/18 10:55 MPV 7.2 fl (7.5-11.1) L 01/08/18 10:55 CMP Sodium 136 mmol/L (136-145) 01/08/18 07:00 Potassium 3.4 mmol/L (3.5-5.1) L 01/08/18 07:00 Chloride 103 mmol/L (98-107) 01/08/18 07:00 Carbon Dioxide 26 mmol/L (21-32) 01/08/18 07:00 Anion Gap 7 MMOL/L (8-16) L 01/08/18 07:00 BUN 26 mg/dL (7-18) H 01/08/18 07:00 Creatinine 2.3 mg/dL (0.7-1.3) H 01/08/18 07:00 Creat Clearance w eGFR 28.17 (>60) 01/08/18 07:00 Random Glucose 83 mg/dL (74-106) 01/08/18 07:00 Calcium 7.6 mg/dL (8.5-10.1) L 01/08/18 07:00 Total Bilirubin 0.6 mg/dL (0.2-1.0) 01/07/18 07:30 AST 44 U/L (15-37) H 01/07/18 07:30 ALT 33 U/L (12-78) 01/07/18 07:30 Alkaline Phosphatase 204 U/L (45-117) H 01/07/18 07:30 Total Protein 7.1 g/dl (6.4-8.2) 01/07/18 07:30 Albumin 2.9 g/dl (3.4-5.0) L 01/07/18 07:30 CARDIAC ENZYMES Creatine Kinase 180 IU/L (39-308) 01/02/18 12:26 Troponin I < 0.02 ng/ml (0.00-0.05) 01/02/18 10:55 Assessment: This is a 72 year old male with PMHx of HTN, HLD, NIDDM, s/p aortic valve replacement, PPM, who presented to the ED with generalized weakness and body aches Plan: 1) Anemia - Patient's pcp, Dr. Ely in [place] reports the patient had a recent GI bleed for which he required PRBC transfusion - Iron studies reviewed, continue ferrous sulfate. Can give IV iron, will defer to hematology - Guiac negative per GI - Appreciate hematology consult - Appreciate GI consult: for colonoscopy tomorrow. CTAP with short segment of circumferential thickening in the distal sigmoid colon and thickening of the retosigmoid juntion wall 2) R/o multiple myeloma - MM workup per oncology 2) Thrombocytopenia - Chronic - Labs from pcp's office show platelet of 74 on 08/05/17 - Appreciate hematology consult 3) Abnormal liver function tests - GGT 285 - Hepatitis panel reviewed - CTAP reviewed 4) Enlarged prostate - Per GI evaluation - PSA 1.1 on 08/05/17 5) CKD - Patient Cr 08/05/17 was 3.[address] Dr. Ely, he was being worked up for CKD and they were just monitoring his kidney function at this time - Cr stable, 2.2 today - Discussed with Dr. Crawley - F/u Spep 6) DM - BGM ACHS - ISS ACHS 7) Post AVR/bioprosthesis - Continue Toprol XL - Ideally should be on ASA, however anemia and thrombocytopenia workup ongoing, will defer starting for now - Will received Amoxicillin 2gm within 30 min of colonoscopy given bioprosthetic aortic valve replacement 8) PPM - F/u interrogation 9) Probable diastolic LV dysfunction - ECHO reviewed: will need repeat ECHO in 3-4 months to assess progression of valvular cardiomyopathy and consideration for TAVR 10) B12 deficiency - B12 wnl here Visit type - Emergency Visit Emergency Visit: Yes ED Registration Date: 01/07/18 Care time: The patient presented to the Emergency Department on the above date and was hospitalized for further evaluation of their emergent condition. - New Patient This patient is new to me today: No - Critical Care Critical Care patient: No
[2018-01-08] MEDS: ATORVASTATIN CA 10 MG TABLET (FP) PO SCH (21:06)
[2018-01-09] MEDS: hydrALAZINE HCL 50 MG TABLET (FP) PO SCH (06:16)
[2018-01-09 07:40] LABS: BASO % 0.3 % (0-2.0); EOS % 1.9 % (0-4.5); HEMATOCRIT 25.4 % (35.4-49); HEMOGLOBIN 8.4 GM/dL (11.7-16.9); LYMPH % 28.2 % (8-40); MCHC 33.2 g/dl (32.0-35.9); MEAN CELL VOLUME 81.4 fl (80-96); MEAN PLT VOLUME 7.6 fl (7.5-11.1); MONO % 10.2 % (3.8-10.2); NEUT % 59.4 % (42.8-82.8); PLATELET COUNT 88 K/MM3 (134-434); RBC 3.12 M/mm3 (4.00-5.60); RDW 14.8 % (11.9-15.9); WHITE BLOOD COUNT 7.3 K/mm3 (4.0-10.0)
[2018-01-09 08:22] LABS: CHLORIDE 102 mmol/L (98-107); POTASSIUM 3.5 mmol/L (3.5-5.1); SODIUM 136 mmol/L (136-145)
[2018-01-09 08:25] VITALS: PULSE 80; TEMP 98.2
[2018-01-09 08:29] LABS: ALBUMIN 2.6 g/dl (3.4-5.0); ALK PHOS 177 U/L (45-117); ANION GAP 7 MMOL/L (8-16); BILIRUBIN,DIRECT 0.3 mg/dL (0.0-0.2); BILIRUBIN,TOTAL 0.4 mg/dL (0.2-1.0); BLOOD UREA NITROGEN 31 mg/dL (7-18); CALCIUM 7.5 mg/dL (8.5-10.1); CO2 27 mmol/L (21-32); CREATININE 2.2 mg/dL (0.7-1.3); GLUCOSE,RANDOM 82 mg/dL (74-106); SGOT/AST 41 U/L (15-37); SGPT/ALT 30 U/L (12-78); TOT PROT 6.4 g/dl (6.4-8.2)
[2018-01-09 09:01] VITALS: BP 145/67
[2018-01-09] MEDS: FERROUS SO4 325 MG TABLET (FP) PO SCH (09:09)
--- NOTE | 2018-01-09 09:43 | DS ---
Physical Examination Vital Signs: Vital Signs Temperature 98.2 F 01/09/18 08:00 Pulse Rate 80 01/09/18 09:01 Respiratory Rate 16 01/09/18 09:01 Blood Pressure 145/67 01/09/18 09:01 O2 Sat by Pulse Oximetry (%) 100 01/08/18 21:00 Findings/Remarks: Physical Exam: General: NAD, A&Ox3 Lungs: CTA bilaterally Heart: RRR, S1S2, +murmur Abd: Soft, non-tender, non-distended. Normoactive bowel sounds Ext: Warm, well-perfused Labs: CBC, BMP 01/09/18 07:00 01/09/18 07:00 Discharge Summary Reason For Visit: RENAL FAILURE; WEAKNESS; ANEMIA Current Active Problems Abnormal CT of the abdomen (Acute) Abnormal liver function tests (Acute) [id number] kidney injury (Acute) Anemia (Acute) Benign neoplasm of colon, unspecified (Acute) Diastolic dysfunction without heart failure (Acute) History of aortic valve replacement with bioprosthetic valve (Acute) Murmur, cardiac (Acute) Renal failure (Acute) Severe aortic regurgitation (Acute) Severe tricuspid regurgitation (Acute) Thrombocytopenia (Acute) Valvular cardiomyopathy (Acute) Weakness (Acute) Hospital Course: This is a 72 year old male with PMHx of HTN, HLD, NIDDM, s/p aortic valve replacement, PPM, who presented to the ED with generalized weakness and body aches Plan: 1) Anemia - Multifactorial - Patient's pcp, Dr. Ely in [place] reports the patient had a recent GI bleed for which he required PRBC transfusion - Iron studies reviewed, continue ferrous sulfate. - M-spike not observed - Appreciate hematology consult - Appreciate GI consult: F/u outpatient for colonoscopy and endoscopy biopsy results 2) Thrombocytopenia - Chronic - Labs from pcp's office show platelet of 74 on 08/05/17 - Sent off flow cytometry, FISH, and cytogenetics to r/o MDS and lymphoproliforative disorder. Will need to follow-up with hematology as outpatient for results - Appreciate hematology consult 3) Abnormal liver function tests - GGT 285 - Hepatitis panel reviewed - CTAP reviewed 4) Enlarged prostate - Per GI evaluation - PSA 1.1 on 08/05/17 5) CKD - Patient Cr 08/05/17 was 3.[address] Dr. Innocent, he was being worked up for CKD and they were just monitoring his kidney function at this time - Cr better than baseline - Discussed with Dr. Crawley 6) DM - BGM ACHS - ISS ACHS 7) Post AVR/bioprosthesis - Continue Toprol XL - Ideally should be on ASA, however anemia and thrombocytopenia workup ongoing, will defer starting for now 8) PPM 9) Probable diastolic LV dysfunction - ECHO reviewed: will need repeat ECHO in 3-4 months to assess progression of valvular cardiomyopathy and consideration for TAVR Discussed with Dr. Dobson who would like the patient to follow-up with Dr. John as patient's JAYDE positive. This discharge took 55 minutes to complete. Condition: Improved - Instructions Diet, Activity, Other Instructions: Please return to the ED with new, persistent, or worsening symptoms. Please follow-up with providers as indicated. Referrals: Rey Farley MD [Primary Care Provider] - 1 Week Osvaldo Chaves DO [Staff Physician] - (Please follow-up with Dr. Chaves (GI) within 3-5 days to get the biopsy results from your colonoscopy) Italo John MD [Staff Physician] - (Please follow-up with rheumatology within 2-3 days for further evaluation of your positive JAYDE screen and for further workup to see if you have any rheumatological disorders. ) Oscar Tomlinson MD [Staff Physician] - (Please follow-up with cardiology within 1 week for further evaluation of your heart valves and to schedule a repeat echocardiogram in 4-6 months. ) Giancarlo Woodward MD [Staff Physician] - (Please follow-up with Dr. Dobson or Dr. Woodward within 1 week for results of your flow cytometry, cytogenetics, and FISH and for further evaluation of your anemia and thrombocytopenia.) Dov Crawley MD [Staff Physician] - (Please follow-up with nephrology within 1 week for further management of your chronic kidney disease.) Disposition: HOME - Home Medications Comprehensive Discharge Medication List: Ambulatory Orders Metoprolol Succinate 25 mg PO DAILY 01/02/18 Ferrous Sulfate [Feosol] 325 mg PO DAILY #30 tab 01/09/18 Hydralazine HCl 50 mg PO TID #90 tab 01/09/18 This patient is new to me today: No Emergency Visit: Yes ED Registration Date: 01/07/18 Care time: The patient presented to the Emergency Department on the above date and was hospitalized for further evaluation of their emergent condition. Critical Care patient: No - Discharge Referral Referred to [facility] No
--- NOTE | 2018-01-09 12:11 | PN ---
Progress Note (short form) - Note Progress Note: Chief Complaint: Events noted, notes reviewed, denies any chest pain or dyspnea , anemia persistent post transfusion, plan to D/C home History of Present Illness: Seen and examined. Events noted, notes reviewed, denies any chest pain or dyspnea, anemia persistent post transfusion, plan to D/C home Echocardiography dated 01/04/2018 revealed borderline cLVH, normal LV size and function, LVEF 60%, normal RV size and function, pacer in RV, mild MR, severe TR , severe bioprosthetic AR, mild PA Current Medications: Atorvastatin Calcium (Lipitor -) 10 mg PO HS [facility] Last Admin: 01/07/18 21:13 Dose: 10 mg Cyanocobalamin (Vitamin B12 Injection -) 1,000 mcg IM DAILY@1800 [facility] Stop: 01/08/18 18:01 Last Admin: 01/07/18 17:31 Dose: 1,000 mcg Ferrous Sulfate (Feosol -) 325 mg PO DAILY [facility] Last Admin: 01/08/18 09:22 Dose: 325 mg Hydralazine HCl (Apresoline -) 50 mg PO TID [facility] Last Admin: 01/08/18 06:03 Dose: 50 mg Metoprolol Succinate (Toprol Xl -) 25 mg PO DAILY [facility] Last Admin: 01/08/18 09:22 Dose: 25 mg Review of Systems - Review of Systems Constitutional: reports: Weakness denies: Chills or Fever Cardiovascular: as noted above Gastrointestinal: denies: Nausea, Vomiting, Diarrhea, Constipation or Abdominal Pain Genitourinary: No symptoms reported Neurological: No symptoms reported - Objective Vital Signs: Last Vital Signs Temp Pulse Resp BP Pulse Ox 98.2 F 80 16 145/67 100 01/09/18 08:00 01/09/18 09:01 01/09/18 09:01 01/09/18 09:01 01/09/18 09:00 Intake & Output 01/06/18 01/07/18 01/08/18 01/09/18 23:59 23:59 23:59 23:59 Intake Total 1050 4303 950 620 Output Total 1835 800 Balance -785 3503 950 620 Weight 157 lb Neck: Supple negative JVD no bruit Cardiovascular: S1 S2 Regular Rate and Rhythm Grade 2/6 SHASTA and Grade 2-3/6 Diastolic AI Murmur Respiratory: Clear to A&P Gastrointestinal: Soft Benign Normal Bowel Sounds Ext: Negative Edema Bilaterally Labs: CBC, BMP 01/09/18 07:00 01/09/18 07:00 Assessment/Plan: ASSESSMENT: 1. Anemia and thrombocytopenia etiology to be determined, post PRBC transfusion 2. Post AVR/bioprosthesis post operative course complicated by probable valve dehiscence requiring re-intervention, with severe bioprosthetic regurgitation 3. Diastolic LV dysfunction with clinical class 0 NYHA classification LV failure 4. AV block post PPM 5. HTN 6. DM, dietary management 7. Hypercholesterolemia 8. CKD PLAN: 1. Continue Toprol XL and titrate dosage as needed and as tolerated 2. Continue Hydralazine 3. As outlined in prior notes ideally Norvasc therapy to be initiated, but prior intolerance to therapy administration 4. Ideally should be on ASA but to be deferred pending resolution of anemia and thrombocytopenia 5. Pacemaker interrogation still pending, [employer]'s device, plan to perform as outpatient 7. As outlined in prior notes outpatient F/U for the above noted valvular pathology, repeat echocardiography in 4-6 months, above was reviewed in detail with the patient and his son who was contacted via telephone Duane Boston MD
[2018-01-09 14:39] LABS: IGA IMMUNOGLOBULIN 217; IGM IMMUNOGLOBULIN 165
--- NOTE | 2018-01-10 19:04 | PATH ---
Surgical Pathology Report Patient Name: [facility]ESSICA [facility]. Rec. #: [id number] /Age/Gender: 1945 (Age: 72) / M Account: [id number] Location: [address] [place] [address]/[facility] Taken: 01/07/2018 Received: 01/07/2018 Reported: 01/10/2018 Physicians: Ramon Chaves D.O. Specimen(s) Received A: BX 2ND PORTION DUODENUM AND BULB B: BX ANTRUM C: BX TRANSVERSE COLON POLYP D: BX PROXIMAL TRANSVERSE COLON POLYP E: BX RIGHT COLON POLYP F: BX RIGHT COLON POLYP LARGE Clinical History Anemia Postoperative diagnosis: Gastritis, colon polyps, hemorrhoids Final Diagnosis A. SECOND PORTION DUODENUM AND BULB, BIOPSY: DUODENAL MUCOSA SHOWING INCREASED NUMBERS OF LYMPHOCYTES INFILTRATE IN THE EPITHELIUM (> 25 INTRAEPITHELIAL LYMPHOCYTES/100 ENTEROCYTES), PARTIAL VILLOUS ATROPHY, FOCAL CRYPT HYPERPLASIA, AND CHRONIC INFLAMMATION IN THE LAMINA PROPRIA. SEE COMMENT. COMMENT: THE FINDINGS ARE SUGGESTIVE OF BUT NOT DIAGNOSTIC FOR CELIAC DISEASE. THE DIFFERENTIAL DIAGNOSIS INCLUDING AUTOIMMUNE ENTEROPATHY, CHRONIC H. PYLORI ASSOCIATED DUODENITIS, FOOD ALLERGY, AND INFECTIONS. CLINICAL CORRELATION IS RECOMMENDED. B. ANTRUM BIOPSY: GASTRIC MUCOSA WITH MILD CHRONIC GASTRITIS AND FOCAL BROWN CRYSTALLINE IRON MATERIAL IN SUPERFICIAL GASTRIC MUCOSA. IMMUNOSTAINS IS NEGATIVE FOR H. PYLORI ORGANISMS. C. TRANSVERSE COLON POLYP X 2, POLYPECTOMY: TUBULAR ADENOMA, ONE FRAGMENT. SEPARATE ONE FRAGMENT OF GASTRIC MUCOSA WITH MILD CHRONIC INFLAMMATION. D. PROXIMAL TRANSVERSE COLON POLYP X 3, POLYPECTOMY: TUBULAR ADENOMA, MULTIPLE FRAGMENTS. E. RIGHT COLON POLYP X 2, POLYPECTOMY: TUBULAR ADENOMA, MULTIPLE FRAGMENTS. F. RIGHT COLON LARGE POLYP #2, POLYPECTOMY: TUBULAR ADENOMA. Electronically Signed Rayray Laws M.D. Gross Description A. Received in formalin, labeled "biopsy duodenum" are 6 weiner, irregular portions of soft tissue ranging from 0.2-0.3 cm. in greatest dimension. The specimens are submitted in toto in one cassette. B. Received in formalin, labeled "biopsy antrum" are 3 weiner, irregular portions of soft tissue ranging from 0.2-0.3 cm. in greatest dimension. The specimens are submitted in toto in one cassette. C. Received in formalin, labeled "polyps transverse colon" are 2 weiner, irregular portions of soft tissue measuring 0.1 and 0.4 cm. in greatest dimension. The specimens are submitted in toto in one cassette. D. Received in formalin, labeled "polyps proximal transverse" are 4 weiner, irregular portions of soft tissue ranging from 0.3-0.5 cm. in greatest dimension. The specimens are submitted in toto in one cassette. E. Received in formalin, labeled "polyp right colon" are 3 weiner, irregular portions of soft tissue ranging from 0.1-0.4 cm. in greatest dimension. The specimens are submitted in toto in one cassette. F. Received in formalin labeled "polyp large right colon," is a 1.2 x 0.7 x 0.7 cm weiner, polypoid portion of soft tissue. The specimen is trisected and entirely submitted in one cassette. 01/07/2018 [facility]01/07/2018
--- NOTE | 2018-01-11 18:11 | PATH ---
Surgical Pathology Report Patient Name: JESSICA JAMES Med. Rec. #: [id number] /Age/Gender: 1945 (Age: 72) / M Account: [id number] Location: [address] [place] [address] Taken: 01/09/2018 Received: 01/10/2018 Reported: 01/11/2018 Physicians: Olya Caro M.D. PHYSICIAN EMERGENCY DEPT Specimen(s) Received 4 GREEN TOP TUBES Clinical History Rule out MDS/lymphoproliferative disorder Final Diagnosis COMPREHENSIVE FLOW PANEL performed and interpreted at [facility] laboratory, [place], [place] ([id number]) shows the following: INTERPRETATION: NO ATYPICAL FLOW CYTOMETRIC FINDINGS SEEN. ADDITIONAL TESTS: Cytogenetics VIABILITY: 92% PHENOTYPE: Lymphocytes include polycional B cells, NK cells and immunophenotypically normal CD4+ and CD8+ T cells in normal proportions. No evidence of a clonal lymphoid expansion. See [facility] report ([id number]) for additional details. Electronically Signed Rayray Laws M.D. Gross Description Received are 4 green top tubes of peripheral blood which are sent to [facility]. /01/10/2018 saudi/01/10/2018
== END 2018-01-09 11:08 | disposition home or self-care (01) | DRG 812 ==
LOC: JER 09:18 → JERBED 13:01 → J6S 01-03 15:47 → OBSVTOIN 01-07 17:00
PROVIDERS: ADMIT Internal Medicine; ATTEND Registered Nurse
DX: D50.9 Iron deficiency anemia, unspecified (principal); N17.9 Acute kidney failure, unspecified; E78.5 Hyperlipidemia, unspecified; Z95.4 Presence of other heart-valve replacement; Z95.0 Presence of cardiac pacemaker; Z87.891 Personal history of nicotine dependence; E11.22 Type 2 diabetes mellitus with diabetic chronic kidney disease; I12.9 Hypertensive chronic kidney disease with stage 1 through stage 4 chronic kidney disease, or unspecified chronic kidney disease; E11.21 Type 2 diabetes mellitus with diabetic nephropathy; N18.3 Chronic kidney disease, stage 3 (moderate); Z79.84 Long term (current) use of oral hypoglycemic drugs; R74.0 Nonspecific elevation of levels of transaminase and lactic acid dehydrogenase [LDH]; D69.6 Thrombocytopenia, unspecified; R63.4 Abnormal weight loss; Z68.23 Body mass index [BMI] 23.0-23.9, adult; N40.0 Benign prostatic hyperplasia without lower urinary tract symptoms; R94.5 Abnormal results of liver function studies; D51.9 Vitamin B12 deficiency anemia, unspecified; D63.1 Anemia in chronic kidney disease; K29.70 Gastritis, unspecified, without bleeding; I35.1 Nonrheumatic aortic (valve) insufficiency; I36.1 Nonrheumatic tricuspid (valve) insufficiency; R01.1 Cardiac murmur, unspecified
CPT/HCPCS: 36415; 36430; 71045-TC-FY; 71250-TC; 74176-TC; 76705-TC; 76775-TC; 80048; 80053; 80074; 80076; 81003; 81015; 82272; 82550; 82553; 82570; 82607; 82728; 82746; 82784; 82962; 82977; 83010; 83021; 83036; 83070; 83516; 83540; 83550; 83615; 83735; 84100; 84155; 84156; 84165; 84300; 84443; 84484; 84540; 84550; 85025; 85027; 85044; 85610; 85651; 85660; 85730; 86038; 86140; 86225; 86334; 86682; 86704; 86706; 86708; 86850; 86880; 86900; 86901; 86922; 87040; 87086; 87340; 87804; 88305-TC; 88342-TC; 93005; 93010; 93306-TC; 99285-25; G0378; J0881; J1644; J1756; J7030; P9038; P9058

== ENCOUNTER 2018-01-19 08:05 | Inpatient (IN) | payer OTHER ==
--- NOTE | 2018-01-19 08:25 | PDOC ---
History of Present Illness - General History Source: Patient Exam Limitations: No Limitations - History of Present Illness Initial Comments: 01/19/18 09:58 The patient is a 72 year old male with a significant PMH of hypertension, GI bleed, aortic valve replacement and anemia(2 blood transfusions) who presents to the emergency department with rectal bleeding since earlier this morning. The patient describes his rectal bleed as dark red and mixed with stool (more blood than stool). He states that he had about 3 episodes of passing stool with blood this morning. The patient reports similar episode in the past but endorses haematemesis with prior episode. The patient reports a recent hospitalization for a colonoscopy secondary to prior episode by which 7-8 polyps were removed. The patient reports that he originally lives in [facility] but goes to his appointments in [place] and is here visiting his son. The patient denies any other symptoms. He denies any abdominal pain, fever, chills, nausea, vomit, diarrhea,constipation or urinary symptoms. He denies any chest pain, shortness of breath, headache and dizziness. The patient denies any other complaints. PCP: Dr. Farley <Luz Riggs - Last Filed: 01/19/18 09:58> <Montez Valadez - Last Filed: 01/19/18 12:02> - General Chief Complaint: Bleeding from Anus Stated Complaint: Blood in the stool Time Seen by Provider: 01/19/18 08:25 Past History <Luz Riggs - Last Filed: 01/19/18 09:58> - Past Medical History Anemia: Yes Cardiac Disorders: Yes COPD: No DVT: No HTN: Yes Hypercholesterolemia: Yes - Surgical History Cardiac Surgery: Yes (valve replacement x2,ppm) - Suicide/Smoking/Psychosocial Hx Smoking History: Former smoker Have you smoked in the past 12 months: No If you are a former smoker, when did you quit?: 40 years ago Information on smoking cessation initiated: No Hx Alcohol Use: No Drug/Substance Use Hx: No Substance Use Type: None Hx Substance Use Treatment: No <Montez Valadez - Last Filed: 01/19/18 12:02> - Past Medical History Allergies/Adverse Reactions: Allergies Allergy/AdvReac Type Severity Reaction Status Date / Time amlodipine Allergy Verified 01/19/18 08:13 lisinopril Allergy Swelling Verified 01/19/18 08:13 Home Medications: Ambulatory Orders Metoprolol Succinate 25 mg PO DAILY 01/02/18 Ferrous Sulfate [Feosol] 325 mg PO DAILY #30 tab 01/09/18 Hydralazine HCl 50 mg PO TID #90 tab 01/09/18 Ascorbate Calcium [Vitamin C] 500 mg PO BID 01/19/18 Review of Systems - Review of Systems Able to Perform ROS?: Yes Comments:: 01/19/18 09:58 CONSTITUTIONAL: No fever, no chills, no fatigue EYES: No visual changes ENT: No ear pain, no sore throat CARDIOVASCULAR: No chest pain, no palpitations RESPIRATORY: No cough, no SOB GI: (+)rectal bleed. No abdominal pain, no nausea, no vomiting, no constipation , no diarrhea GENITOURINARY: No dysuria, no frequency, no hematuria MUSKULOSKELETAL: No backpain, no joint pain, no myalgias SKIN: No rash NEURO: No headache <Luz Riggs - Last Filed: 01/19/18 09:58> *Physical Exam - Vital Signs Last Vital Signs Temp Pulse Resp BP Pulse Ox 98.1 F 105 H 18 110/81 100 01/19/18 08:14 01/19/18 08:14 01/19/18 08:14 01/19/18 08:14 01/19/18 08:14 - Physical Exam Comments: 01/19/18 09:59 CONSTITUTIONAL: Well-appearing; well-nourished; in no apparent distress HEAD: Normocephalic; atraumatic EYES: (+)conjunctiva pale, right eye tic. PERRL; EOM intact ENMT: External appears normal; normal oropharynx NECK: Supple; non-tender; no cervical lymphadenopathy CARD: (+)3/6 holosystolic ejection murmur. Normal S1, S2; no rubs, or gallops RESP: Normal chest excursion with respiration; breath sounds clear and equal bilaterally; no wheezes, rhonchi, or rales ABD: Soft, non-distended; non-tender; no palpable organomegaly, no palpable hernias EXT: Normal ROM in all four extremities; non-tender to palpation; distal pulses intact SKIN: Warm, dry, no rash NEURO: No focal neurological deficiencies. RECTAL: (+)Maroon blood in rectal vault. N external legions. <uLz Riggs - Last Filed: 01/19/18 09:58> - Vital Signs Last Vital Signs Temp Pulse Resp BP Pulse Ox 98.1 F 105 H 18 110/81 100 01/19/18 08:14 01/19/18 08:14 01/19/18 08:14 01/19/18 08:14 01/19/18 08:14 <Montez Valadez - Last Filed: 01/19/18 12:02> ED Treatment Course - LABORATORY CBC & Chemistry Diagram: 01/19/18 09:00 01/19/18 09:00 - ADDITIONAL ORDERS Additional order review: Laboratory Results 01/19/18 01/19/18 01/19/18 09:00 09:00 08:54 PT with INR 12.50 INR 1.11 H Sodium 139 Potassium 4.0 Chloride 104 Carbon Dioxide 24 Anion Gap 11 BUN 36 H Creatinine 2.1 H Creat Clearance w eGFR 31.29 Random Glucose 103 D Calcium 8.3 L Total Bilirubin 0.5 AST 68 H D ALT 64 D Alkaline Phosphatase 247 H D Total Protein 7.5 Albumin 3.1 L Stool Occult Blood Positive 01/19/18 09:00 RBC 3.08 L MCV 83.1 MCHC 32.1 RDW 16.4 H MPV 8.0 Neutrophils % 71.2 Lymphocytes % 19.8 D Monocytes % 8.3 Eosinophils % 0.4 Basophils % 0.3 - Medications Given in the ED: ED Medications Discontinued Medications Generic Name Dose Route Start Last Admin Trade Name Freq PRN Reason Stop Dose Admin Pantoprazole Sodium 40 mg 01/19/18 09:04 01/19/18 09:12 Protonix Iv IVPUSH 01/19/18 09:05 40 mg ONCE ONE Administration <Luz Riggs - Last Filed: 01/19/18 09:58> - LABORATORY CBC & Chemistry Diagram: 01/19/18 09:00 01/19/18 09:00 <Motnez Valadez - Last Filed: 01/19/18 12:02> Medical Decision Making - Medical Decision Making 01/19/18 10:11 72-year-old male with history of vertigo fell replacement, recurrent GI bleeding , status post colonoscopy 01/07/2018 with several polypectomies presents with rectal bleeding with maroon blood. Initially patient noted to be mildly tachycardic with dark maroon blood in the rectal vault. Blood pressures noted to be within normal limit. Repeat heart rate is noted to be 91. Hematocrit is noted to be 25 which appears to be patient's baseline. BUN creatinine is at baseline as well with creatinine of 2.1. Case discussed with Dr. Kamilla Garcia. Patient's bleeding may be related to previous polypectomy. He will require a repeat colonoscopy. Will initiate GoLYTELY prep we'll keep patient nothing by mouth. 01/19/18 12:02 Patient had another bloody bowel movement. Vital signs are heart rate 91 blood pressure is 106/78. Patient accepted to the ICU. Awaiting transport. Will obtain a four-hour CBC to evaluate for changes in hematocrit. <Montez Valadez - Last Filed: 01/19/18 12:02> *DC/Admit/Observation/Transfer - Attestations Scribe Attestion: 01/19/18 09:59 Documentation prepared by Luz Riggs, acting as durable medical equipment repairer for Montez Valadez MD. <Luz Riggs - Last Filed: 01/19/18 09:58> - Discharge Dispostion Decision to Admit order: Yes <Montez Valadez - Last Filed: 01/19/18 12:02> Diagnosis at time of Disposition: GI bleed Qualifiers: GI bleed type/associated pathology: unspecified gastrointestinal hemorrhage type Qualified Code(s): K92.2 - Gastrointestinal hemorrhage, unspecified Anemia Qualifiers: Anemia type: unspecified type Qualified Code(s): D64.9 - Anemia, unspecified - Discharge Dispostion Condition at time of disposition: Guarded
[2018-01-19 08:58] VITALS: BMI 23.1
[2018-01-19] MEDS ORDERED: PANTOPRAZOLE SODIUM 40 MG VIAL IVPUSH ONE (09:04)
[2018-01-19] MEDS ORDERED: PANTOPRAZOLE SODIUM 40 MG/100 ML BAG IVPB ONE (09:14)
[2018-01-19 09:22] LABS: BASO % 0.3 % (0-2.0); EOS % 0.4 % (0-4.5); HEMATOCRIT 25.6 % (35.4-49); HEMOGLOBIN 8.2 GM/dL (11.7-16.9); LYMPH % 19.8 % (8-40); MCH 26.7 pg (25.7-33.7); MCHC 32.1 g/dl (32.0-35.9); MEAN CELL VOLUME 83.1 fl (80-96); MONO % 8.3 % (3.8-10.2); NEUT % 71.2 % (42.8-82.8); PLATELET COUNT 100 K/MM3 (134-434); RBC 3.08 M/mm3 (4.00-5.60); RDW 16.4 % (11.9-15.9); WHITE BLOOD COUNT 7.1 K/mm3 (4.0-10.0)
[2018-01-19 09:36] LABS: ALBUMIN 3.1 g/dl (3.4-5.0); ANION GAP 11 MMOL/L (8-16); BLOOD UREA NITROGEN 36 mg/dL (7-18); CALCIUM 8.3 mg/dL (8.5-10.1); CHLORIDE 104 mmol/L (98-107); CO2 24 mmol/L (21-32); CREATININE 2.1 mg/dL (0.7-1.3); GLUCOSE,RANDOM 103 mg/dL (74-106); SGOT/AST 68 U/L (15-37); SGPT/ALT 64 U/L (12-78); SODIUM 139 mmol/L (136-145)
[2018-01-19 09:37] LABS: ALK PHOS 247 U/L (45-117); BILIRUBIN,TOTAL 0.5 mg/dL (0.2-1.0); TOT PROT 7.5 g/dl (6.4-8.2)
[2018-01-19 09:45] LABS: INR 1.11 (0.83-1.09); PROTHROMBIN TIME (PATIENT) 12.5 SEC (9.7-13.0)
[2018-01-19 10:32] LABS: URINE APPEARANCE CLEAR; URINE BILIRUBIN NEGATIVE (<2.0 mg/dL); URINE COLOR STRAW; URINE GLUCOSE (UA) NEGATIVE (NEGATIVE); URINE KETONE NEGATIVE (NEGATIVE); URINE LEUK ESTERASE NEGATIVE (NEGATIVE); URINE NITRITE NEGATIVE (NEGATIVE); URINE UROBILINOGEN NEGATIVE mg/dL (0.2-1.0)
[2018-01-19 10:36] LABS: URINE PROTEIN 2+ (NEGATIVE)
[2018-01-19] MEDS ORDERED: PEG3350/SOD SULF,BICARB,CL/KCL 4,000 ML SOLN.RECON PO ONE (11:00)
--- NOTE | 2018-01-19 12:33 | EKG ---
Test Reason : Blood Pressure : / mmHG Vent. Rate : 090 BPM Atrial Rate : 090 BPM P-R Int : 238 ms QRS Dur : 108 ms QT Int : 376 ms P-R-T Axes : 058 -48 092 degrees QTc Int : 459 ms SINUS RHYTHM WITH 1ST DEGREE A-V BLOCK POSSIBLE LEFT ATRIAL ENLARGEMENT LEFT AXIS DEVIATION INCOMPLETE RIGHT BUNDLE BRANCH BLOCK LEFT VENTRICULAR HYPERTROPHY ABNORMAL QRS-T ANGLE, CONSIDER PRIMARY T WAVE ABNORMALITY ABNORMAL ECG WHEN COMPARED WITH ECG OF 02-JAN-2018 10:25, NO SIGNIFICANT CHANGE WAS FOUND Confirmed by RON ARRIAZA, PRASHANT ([id number]) on 01/19/2018 12:33:15 PM Referred By: Confirmed By:PRASHANT VELASQUEZ MD
[2018-01-19] MEDS ORDERED: LABETALOL HCL 5 MG/1 ML (100MG/20 ML VIAL) ONE (12:42)
[2018-01-19] MEDS ORDERED: LABETALOL HCL 5 MG/1 ML (100MG/20 ML VIAL) IVPUSH ONE (13:09)
--- NOTE | 2018-01-19 13:37 | CONSULT ---
Consultation: REQUESTING PROVIDER: CONSULT REQUEST: We have been asked to medically evaluate this patient for GI bleed. HISTORY OF PRESENT ILLNESS: Patient is a 72 y/o male with a history of HTN, HLD, s/p aortic valve replacement and pacemaker who presents for rectal bleeding. He was in the hospital a week ago for similar event. he had three episodes of bloody bowel movements this morning that were not associated with abdominal pain. He had a colonsocopy and EGD done. A colonoscopy showed sessile and pedunculated polyps that were removed. Patient reports he had bloody stools three years ago and had a colonoscopy at that time that did not report any abnormalities. Patient's sister has a history of colon cancer that was treated with surgery. Patient denies drinking and stopped smoking cigarettes 40 years ago. Patients most recent bowel movement was bloody. He has not eaten anything out of the normal. Patient denies abdominal pain, diarrhea, chest pain, fatigue, or dizziness. REVIEW OF SYSTEMS: CONSTITUTIONAL: Absent: fever , chills, diaphoresis, generalized weakness, malaise, loss of appetite, weight change HEENT: Absent: rhinorrhea, nasal congestion, throat pain, throat swelling, difficulty swallowing, mouth swelling, ear pain, eye pain, visual changes CARDIOVASCULAR: Absent: chest pain, syncope, palpitations, irregular heart rate, lightheadedness , peripheral edema RESPIRATORY: Absent: cough, shortness of breath, dyspnea with exertion, orthopnea, wheezing, stridor, hemoptysis GASTROINTESTINAL:hematochezia Absent: abdominal pain, abdominal distension, nausea, vomiting, diarrhea, constipation, melena, GENITOURINARY: Absent: dysuria, frequency, urgency, hesitancy, hematuria, flank pain, genital pain MUSCULOSKELETAL: Absent: myalgia, arthralgia, joint swelling, back pain, neck pain SKIN: Absent: rash, itching, pallor HEMATOLOGIC/IMMUNOLOGIC: Absent: easy bleeding, easy bruising, lymphadenopathy, frequent infections ENDOCRINE: Absent: unexplained weight gain, unexplained weight loss, heat intolerance, cold intolerance NEUROLOGIC: Absent: headache, focal weakness or paresthesias, dizziness, unsteady gait, seizure, mental status changes, bladder or bowel incontinence PSYCHIATRIC: Absent: anxiety, depression, suicidal or homicidal ideation, hallucinations. PHYSICAL EXAMINATION Vital Signs Temperature 97.6 F 01/19/18 11:16 Pulse Rate 89 01/19/18 11:16 Respiratory Rate 16 01/19/18 11:16 Blood Pressure 178/76 01/19/18 11:16 O2 Sat by Pulse Oximetry (%) 98 01/19/18 11:16 GENERAL: Awake, alert, and fully oriented, in no acute distress. HEAD: Normal with no signs of trauma. ENT: moist mucus membranes EYES: Pupils equal, round and reactive to light, extraocular movements intact LUNGS: Breath sounds equal, clear to auscultation bilaterally. HEART: Regular rate and rhythm, systolic murmur at left upper sternal border, radiates to carotids ABDOMEN: Soft, nontender, not distended, normoactive bowel sounds, MUSCULOSKELETAL: Normal range of motion at all joints. LOWER EXTREMITIES: 2+ dp pulses, warm, well-perfused. No calf tenderness. No peripheral edema. SKIN: Warm, dry, normal turgor, no rashes or lesions noted. RECTAL: stool felt in vault, no lesions felt inside, nothing visualized on outside CBCD WBC 7.1 K/mm3 (4.0-10.0) 01/19/18 09:00 RBC 3.08 M/mm3 (4.00-5.60) L 01/19/18 09:00 Hgb 8.2 GM/dL (11.7-16.9) L 01/19/18 09:00 Hct 25.6 % (35.4-49) L 01/19/18 09:00 MCV 83.1 fl (80-96) 01/19/18 09:00 MCHC 32.1 g/dl (32.0-35.9) 01/19/18 09:00 RDW 16.4 % (11.9-15.9) H 01/19/18 09:00 Plt Count 100 K/MM3 (134-434) L 01/19/18 09:00 MPV 8.0 fl (7.5-11.1) 01/19/18 09:00 CMP Sodium 139 mmol/L (136-145) 01/19/18 09:00 Potassium 4.0 mmol/L (3.5-5.1) 01/19/18 09:00 Chloride 104 mmol/L (98-107) 01/19/18 09:00 Carbon Dioxide 24 mmol/L (21-32) 01/19/18 09:00 Anion Gap 11 MMOL/L (8-16) 01/19/18 09:00 BUN 36 mg/dL (7-18) H 01/19/18 09:00 Creatinine 2.1 mg/dL (0.7-1.3) H 01/19/18 09:00 Creat Clearance w eGFR 31.29 (>60) 01/19/18 09:00 Calcium 8.3 mg/dL (8.5-10.1) L 01/19/18 09:00 Total Bilirubin 0.5 mg/dL (0.2-1.0) 01/19/18 09:00 AST 68 U/L (15-37) H D 01/19/18 09:00 ALT 64 U/L (12-78) D 01/19/18 09:00 Alkaline Phosphatase 247 U/L (45-117) H D 01/19/18 09:00 Total Protein 7.5 g/dl (6.4-8.2) 01/19/18 09:00 Albumin 3.1 g/dl (3.4-5.0) L 01/19/18 09:00 Active Medications Active Medications Chlorhexidine Gluconate (Hibiclens For Decolonization -) 1 applic TP HS LOVELY Hydralazine HCl (Apresoline Injection -) 10 mg IVPUSH TID [facility] Sodium Chloride (Normal Saline -) 1,000 mls @ 100 mls/hr IV ASDIR LOV[facility] Labetalol HCl (Normodyne Injection -) 10 mg IVPUSH ONCE ONE Stop: 01/19/18 13:10 Last Admin: 01/19/18 13:00 Dose: 10 mg Mupirocin (Bactroban Ointment (For Decolonization) -) 1 applic NS BID [facility] Stop: 01/24/18 21:59 ASSESSMENT/PLAN: Patient is a 72 y/o male with a history of HTN, HLD, s/p aortic valve replacement and pacemaker who presents for rectal bleeding. Cardio AV replacement - stopped aspirin last visit due to bleeding - pig valve - no [place] Feeder in [place] as he is new to the area HTN - metoprolol 25 po daily, held for now - received lebatolol 10mg - hydralazine 10 mg TID GI suspected lower GI bleed - history of 4 sessile polyp removal in transverse colon and pedunculated polyp removal in right colon 01/11 - repeat colonoscopy - currently drinking bowel prep, possible colonoscopy today - FOBT positive - f/u Dr. Chaves Hematology Anemia 2/2 to GI blood loss - transfuse if drops below 7 - currently 8.2 - patient tachycardic - f/u repeat CBC - continue Ferrous 325 mg BID once po meds resumed FEN - NPO for now - Normal Saline maintenance fluids @ 100 Dispo: We will continue to follow the patient. Thank you for this consultative opportunity. Visit type - Emergency Visit Emergency Visit: No - New Patient This patient is new to me today: Yes Date on this admission: 01/19/18 - Critical Care Critical Care patient: Yes Total Critical Care Time (in minutes): 40 Critical Care Statement: The care of this patient involved high complexity decision making to prevent further life threatening deterioration of the patient 's condition and/or to evaluate & treat vital organ system(s) failure or risk of failure.
--- NOTE | 2018-01-19 13:47 | HP ---
Admitting History and Physical - Primary Care Physician PCP: Rey Farley - Admission Chief Complaint: Lower GI Bleeding History of Present Illness: 72 yrs old man H/O HTN, T2DM Dibetic nephropathy CKD Stage 4, SA node dysfunction s/p PPM, Biprosthetic AVR , H/O GI Bleed in past in 2011 had EGD AND Colonoscopy and diagnosed PUD in 2015 in [place], H/H was normal till 2016 , lives at home independent recently discharged from [facility] on after treated for lower GI bleed, underwent colonoscopy that shows multiple polyps, polypectomy was performed (8 Polyps removed) , patient was in his USOH till yesterday today am noticed BRBPR had 3 episodes at home and 3 blood mixed stool since arrival in ED, hemodynamically stable denies any nausea , vomiting, hemetmesis, abd pain, chest pain, SOB, Dizziness, patient intial H/ H at base line, GI consulted patient is drinking Golytely for urgent colonoscopy. Son is at bed side. History Source: Patient, Family Member - Past Medical History Cardiovascular: Yes: Hyperlipdemia, Other (Aortic valve disease) Gastrointestinal: Yes: GI Bleed Heme/Onc: Yes: Anemia - Past Surgical History Past Surgical History: Yes: Permanent Pacemaker (Placed secondary to A. Fib ), Valve Replacement (Aortic valve in the : porcine jitendra that was repaired 24 hours after initial surgery with bovine tissue.) - Smoking History Smoking history: Former smoker Have you smoked in the past 12 months: No If you are a former smoker, when did you quit?: 40 years ago - Alcohol/Substance Use Hx Alcohol Use: No - Social History ADL: Independent Occupation: Retired: worked for [employer], never been aexposed to fumes History of Recent Travel: Yes ([facility]. ) Home Medications - Allergies Allergies/Adverse Reactions: Allergies Allergy/AdvReac Type Severity Reaction Status Date / Time amlodipine Allergy Verified 01/19/18 08:13 lisinopril Allergy Swelling Verified 01/19/18 08:13 - Home Medications Home Medications: Ambulatory Orders Metoprolol Succinate 25 mg PO DAILY 01/02/18 Ferrous Sulfate [Feosol] 325 mg PO DAILY #30 tab 01/09/18 Hydralazine HCl 50 mg PO TID #90 tab 01/09/18 Ascorbate Calcium [Vitamin C] 500 mg PO BID 01/19/18 Family Disease History - Family Disease History Family Disease History: Other: Father (: details not available ), Mother ( : 87: from cancer details not available ), Sister (2, 1 with h/o colon cancer, DM II), Son (3, healthy), Daughter (1, healthy) Review of Systems - Review of Systems Constitutional: denies: Chills, Diaphoresis, Fever, Lethargy Eyes: denies: Blind Spots, Blurred Vision HENT: denies: Difficult Swallowing, Ear Discharge, Ear Pain, Epistaxis Neck: denies: Decreased ROM, Lumps, Pain on Movement Cardiovascular: denies: Chest Pain, Edema, Palpitations, Shortness of Breath Respiratory: denies: Cough, Exercise Intolerance, Hemoptysis, Orthopnea Gastrointestinal: reports: Rectal Bleeding. denies: Abdominal Pain, Bloating, Constipation, Diarrhea, Dysphagia, Indigestion, Melena, Vomiting Genitourinary: denies: Burning Musculoskeletal: denies: Back Pain, Crepitus, Decreased ROM Integumentary: denies: Blister, Bruising, Change in Color, Eczema, Other Neurological: denies: Change in LOC, Change in Speech Endocrine: denies: Excessive Sweating, Flushing, Increased Hunger Hematology/Lymphatic: denies: Easily Bruised, Excessive Bleeding, Swollen Glands Psychiatric: denies: Altered Sleep Pattern, Anxiety, Depression, Hallucinations Physical Examination Vital Signs: Vital Signs Temperature 97.6 F 01/19/18 11:16 Pulse Rate 80 01/19/18 13:00 Respiratory Rate 22 01/19/18 13:00 Blood Pressure 164/58 01/19/18 13:00 O2 Sat by Pulse Oximetry (%) 98 01/19/18 11:16 Elderly man comfortable not in distress HEENT: MM moist, anemia, PERRLA, EOMI NECK: Supple No JVd No Bruit CHEST: CTA B/L CVS: S1S2 R SM in AA no /g/r ABD: No distention non tender Bs + EXT: No Edema feet no calf tenderness, pulses + ARMATURE REPAIRER: AOx3 non focal, Rt hemifacial spasms. Labs: CBC, BMP 01/19/18 09:00 01/19/18 09:00 Imaging - Results Chest X-ray: Report Reviewed (No interval changers) EKG: Report Reviewed (NSR at 70 Ist HB LAD LVHS no acute St t changes, same as base line on 01/02) Problem List - Problems (1) Lower gastrointestinal bleed Assessment/Plan: Recurrent lower Gi bleed 3-4 episodes since 6.00 am initial H/H stable will Rpt H/H Q 6 hrly, type and Screen, GI consult will consider surgery consult if drop in H/H or active bleeding requires surgical intervention. Code(s): K92.2 - GASTROINTESTINAL HEMORRHAGE, UNSPECIFIED (2) Anemia due to gastrointestinal blood loss Assessment/Plan: Recurrent lower GI bleed aftwer Polypectomy during previous Hospitalization A needs Iron suplement after Dc Home Code(s): D50.0 - IRON DEFICIENCY ANEMIA SECONDARY TO BLOOD LOSS (CHRONIC) (3) CKD stage 4 due to type 2 diabetes mellitus Code(s): E11.22 - TYPE 2 DIABETES MELLITUS W DIABETIC CHRONIC KIDNEY DISEASE; N18.4 - CHRONIC KIDNEY DISEASE, STAGE 4 (SEVERE) (4) Pacemaker Assessment/Plan: Due to Sa node dysfunction evaluated during previous Hospitalization. Code(s): Z95.0 - PRESENCE OF CARDIAC PACEMAKER (5) HTN (hypertension) Assessment/Plan: Well controlled will hold BP meds as BP IS BORDERLINE Code(s): I10 - ESSENTIAL (PRIMARY) HYPERTENSION (6) History of aortic valve replacement with bioprosthetic valve Assessment/Plan: No active issue, previous ECHO SHOWS AR and MR Code(s): Z95.3 - PRESENCE OF XENOGENIC HEART VALVE (7) Thrombocytopenia Assessment/Plan: Chronic Platelet count is stable Code(s): D69.6 - THROMBOCYTOPENIA, UNSPECIFIED
--- NOTE | 2018-01-19 14:01 | PN ---
Teaching Attending Note Name of Resident: Maria A Payan ATTENDING PHYSICIAN STATEMENT I saw and evaluated the patient. I reviewed the resident's note and discussed the case with the resident. I agree with the resident's findings and plan as documented. SUBJECTIVE: Pt seen and examined in the ICU. Briefly, 72yo male with h/o HTN, hyperlipidemia , s/o bio AVR, PPM, recent colonoscopy s/p polypectomies x 8 and internal hemorrhoids seen at that time who presents with BRBPR x 3. Denies abdominal pain , nausea or vomiting. No shortness of breath, chest pain, palpitations, lightheadedness or dizziness. Does not take any antiplatelets or anticoagulation. H/H similar to prior admission. OBJECTIVE: Vital Signs Period Temp Pulse Resp BP Sys/Burnett Pulse Ox Last 24 Hr 97.6 F-98.2 F 80-105 16-24 110-203/58-81 98-100 Intake & Output 01/16/18 01/17/18 01/18/18 01/19/18 23:59 23:59 23:59 23:59 Weight 71.214 kg Gen: NAD at rest Heart: RRR Lung: decreased breath sounds at the bases Abd: soft, nontender Ext: no edema CBC WBC 7.1 K/mm3 (4.0-10.0) 01/19/18 09:00 RBC 3.08 M/mm3 (4.00-5.60) L 01/19/18 09:00 Hgb 8.2 GM/dL (11.7-16.9) L 01/19/18 09:00 Hct 25.6 % (35.4-49) L 01/19/18 09:00 MCV 83.1 fl (80-96) 01/19/18 09:00 MCH 26.7 pg (25.7-33.7) 01/19/18 09:00 MCHC 32.1 g/dl (32.0-35.9) 01/19/18 09:00 RDW 16.4 % (11.9-15.9) H 01/19/18 09:00 Plt Count 100 K/MM3 (134-434) L 01/19/18 09:00 MPV 8.0 fl (7.5-11.1) 01/19/18 09:00 Absolute Neuts (auto) 5.1 K/mm3 (1.5-8.0) 01/19/18 09:00 Neutrophils % 71.2 % (42.8-82.8) 01/19/18 09:00 Lymphocytes % 19.8 % (8-40) D 01/19/18 09:00 Monocytes % 8.3 % (3.8-10.2) 01/19/18 09:00 Eosinophils % 0.4 % (0-4.5) 01/19/18 09:00 Basophils % 0.3 % (0-2.0) 01/19/18 09:00 Nucleated RBC % 0 % (0-0) 01/19/18 09:00 CBC, BMP 01/19/18 09:00 Active Medications Chlorhexidine Gluconate (Hibiclens For Decolonization -) 1 applic TP HS [facility] Ferrous Sulfate (Feosol -) 325 mg PO DAILY [facility] Hydralazine HCl (Apresoline Injection -) 10 mg IVPUSH TID [facility] Labetalol HCl (Normodyne Injection -) 10 mg IVPUSH ONCE ONE Stop: 01/19/18 13:10 Last Admin: 01/19/18 13:00 Dose: 10 mg Metoprolol Succinate (Toprol Xl -) 25 mg PO DAILY [facility] Mupirocin (Bactroban Ointment (For Decolonization) -) 1 applic NS BID [facility] Stop: 01/24/18 21:59 Non-Formulary Medication (Ascorbate Calcium [Vitamin C]) 500 mg PO BID [facility] ASSESSMENT AND PLAN: GI Bleed likely Lower - ?post polypectomy vs internal hemorrhoids Anemia HTN Hyperlipidemia h/o bio AVR s/p PPM CKD - monitor H/H - transfuse as needed - GI eval for colonoscopy - NPO for now - BP control - ICU monitoring for now
[2018-01-19 14:08] LABS: HEMATOCRIT 25.9 % (35.4-49); HEMOGLOBIN 8.5 GM/dL (11.7-16.9); MCH 27.3 pg (25.7-33.7); MEAN PLT VOLUME 7.5 fl (7.5-11.1); PLATELET COUNT 114 K/MM3 (134-434); RBC 3.12 M/mm3 (4.00-5.60); RDW 16.2 % (11.9-15.9); WHITE BLOOD COUNT 7.2 K/mm3 (4.0-10.0)
[2018-01-19] MEDS ORDERED: SODIUM CHLORIDE 1,000 ML IV SCH (14:15)
[2018-01-19] MEDS ORDERED: SODIUM CHLORIDE 0.45% 1,000 ML IV SCH (14:30)
--- NOTE | 2018-01-19 14:57 | CONSULT ---
Consult Consult Specialty:: Surgery Referred by:: Miguelito Le MD Reason for Consultation:: G.I.bleeding. - History of Present Illness History of Present Illness: 72 year old man is admitted with sudden onset of rectal bleeding this morning. He has had a few bouts of bright red rectal bleeding today. No nausea, no vomiting. h/O aortic valve replacement, hypertension. He has a few colonic polyps removed recently. - History Source History Provided By: Patient - Past Medical History Cardio/Vascular: Yes: Hyperlipdemia, Other (Aortic valve disease) Gastrointestinal: Yes: GI Bleed - Past Surgical History Past Surgical History: Yes: Permanent Pacemaker (Placed secondary to A. Fib ), Valve Replacement (Aortic valve in the : porcine jitendra that was repaired 24 hours after initial surgery with bovine tissue.) - Alcohol/Substance Use Hx Alcohol Use: No - Smoking History Smoking history: Former smoker Have you smoked in the past 12 months: No If you are a former smoker, when did you quit?: 40 years ago - Social History Usual Living Arrangement: Alone (Lives in [facility]) ADL: Independent Occupation: Retired: worked for [employer], never been aexposed to fumes History of Recent Travel: Yes ([facility]. ) Home Medications - Allergies Allergies/Adverse Reactions: Allergies Allergy/AdvReac Type Severity Reaction Status Date / Time amlodipine Allergy Verified 01/19/18 08:13 lisinopril Allergy Swelling Verified 01/19/18 08:13 - Home Medications Home Medications: Ambulatory Orders Metoprolol Succinate 25 mg PO DAILY 01/02/18 Ferrous Sulfate [Feosol] 325 mg PO DAILY #30 tab 01/09/18 Hydralazine HCl 50 mg PO TID #90 tab 01/09/18 Ascorbate Calcium [Vitamin C] 500 mg PO BID 01/19/18 Family Disease History - Family Disease History Family Disease History: Other: Father (: details not available ), Mother ( : 87: from cancer details not available ), Sister (2, 1 with h/o colon cancer, DM II), Son (3, healthy), Daughter (1, healthy) Physical Exam Vital Signs: Vital Signs Temperature 97.6 F 01/19/18 11:16 Pulse Rate 80 01/19/18 13:00 Respiratory Rate 22 01/19/18 13:00 Blood Pressure 164/58 01/19/18 13:00 O2 Sat by Pulse Oximetry (%) 98 01/19/18 11:16 Labs: CBC, BMP 01/19/18 13:50 01/19/18 09:00 Problem List - Problems (1) Anemia due to gastrointestinal blood loss Code(s): D50.0 - IRON DEFICIENCY ANEMIA SECONDARY TO BLOOD LOSS (CHRONIC) (2) GI bleed Code(s): K92.2 - GASTROINTESTINAL HEMORRHAGE, UNSPECIFIED Qualifiers: GI bleed type/associated pathology: unspecified gastrointestinal hemorrhage type Qualified Code(s): K92.2 - Gastrointestinal hemorrhage, unspecified (3) CKD stage 4 due to type 2 diabetes mellitus Code(s): E11.22 - TYPE 2 DIABETES MELLITUS W DIABETIC CHRONIC KIDNEY DISEASE; N18.4 - CHRONIC KIDNEY DISEASE, STAGE 4 (SEVERE) (4) Pacemaker Code(s): Z95.0 - PRESENCE OF CARDIAC PACEMAKER (5) HTN (hypertension) Code(s): I10 - ESSENTIAL (PRIMARY) HYPERTENSION (6) Lower gastrointestinal bleed Code(s): K92.2 - GASTROINTESTINAL HEMORRHAGE, UNSPECIFIED Assessment/Plan Monitor blood loss closely, Serial hematocrit, Trabsfuse to hematocrit of 30. Visceral angiography if bleeding continues, ' G.I. consultation. will follow.
[2018-01-19] MEDS: hydrALAZINE HCL 20 MG/ML VIAL IVPUSH SCH ×2 (15:01→21:35)
--- NOTE | 2018-01-19 15:38 | CON.GI ---
Consult Consult Specialty:: GI Referred by:: Hospitalist service Reason for Consultation:: Rectal bleeding - History of Present Illness Chief Complaint: Rectal bleeding History of Present Illness: 72M admitted for evaluation of rectal bleeding starting this AM. He was recently admitted to [facility] last week for evaluation of anemia. He underwent EGD/ Colonoscopy 01/07/18. Colonoscopy led to the removal of multiple colon polyps, the largest being in the right colon. Endoclip was placed at the polypectomy site. He denies abdominal pain / chest pain or lightheadedness. initial hgb was 8.2 and he has a history of anemia. - History Source History Provided By: Patient - Past Medical History Cardio/Vascular: Yes: Hyperlipdemia, Other (Aortic valve disease) Gastrointestinal: Yes: GI Bleed Additional Medical History: Tricuspid regurg, Aortic regurg - Past Surgical History Past Surgical History: Yes: Permanent Pacemaker (Placed secondary to A. Fib ), Valve Replacement (Aortic valve in the 's: porcine jitendra that was repaired 24 hours after initial surgery with bovine tissue.) - Alcohol/Substance Use Hx Alcohol Use: No - Smoking History Smoking history: Former smoker Have you smoked in the past 12 months: No If you are a former smoker, when did you quit?: 40 years ago - Social History Usual Living Arrangement: Alone (Lives in [facility]) ADL: Independent Occupation: Retired: worked for [employer], never been aexposed to fumes History of Recent Travel: Yes ([facility]. ) Home Medications - Allergies Allergies/Adverse Reactions: Allergies Allergy/AdvReac Type Severity Reaction Status Date / Time amlodipine Allergy Verified 01/19/18 08:13 lisinopril Allergy Swelling Verified 01/19/18 08:13 - Home Medications Home Medications: Ambulatory Orders Metoprolol Succinate 25 mg PO DAILY 01/02/18 Ferrous Sulfate [Feosol] 325 mg PO DAILY #30 tab 01/09/18 Hydralazine HCl 50 mg PO TID #90 tab 01/09/18 Ascorbate Calcium [Vitamin C] 500 mg PO BID 01/19/18 Family Disease History - Family Disease History Family Disease History: Other: Father (: details not available ), Mother ( : 87: from cancer details not available ), Sister (2, 1 with h/o colon cancer, DM II), Son (3, healthy), Daughter (1, healthy) Review of Systems - Review of Systems Constitutional: denies: Chills Gastrointestinal: reports: Rectal Bleeding. denies: Abdominal Pain, Melena, Vomiting, Vomiting Blood Physical Exam-GI Vital Signs: Vital Signs Temperature 97.6 F 01/19/18 11:16 Pulse Rate 79 01/19/18 15:03 Respiratory Rate 18 01/19/18 15:03 Blood Pressure 174/68 01/19/18 15:03 O2 Sat by Pulse Oximetry (%) 98 01/19/18 11:16 Constitutional: Yes: Calm Eyes: No: Sclera Icterus Cardiovascular: Yes: Regular Rate and Rhythm, Murmur (+ 2/6 holosystolic murmur at the LSB, + 2/6 holosystolic and diastolic murmurs at RSB) ...Auscultate: Yes: Normoactive Bowel Sounds ...Palpate: No: Hepatomegaly, Splenomegaly, Tenderness ...Percussion: No: Tympanitic Edema: No (No LE edema) Labs: CBC, BMP 01/19/18 13:50 01/19/18 09:00 INR, PTT INR 1.11 (0.83-1.09) H 01/19/18 09:00 Hepatic Panel Total Bilirubin 0.5 mg/dL (0.2-1.0) 01/19/18 09:00 AST 68 U/L (15-37) H D 01/19/18 09:00 ALT 64 U/L (12-78) D 01/19/18 09:00 Alkaline Phosphatase 247 U/L (45-117) H D 01/19/18 09:00 Albumin 3.1 g/dl (3.4-5.0) L 01/19/18 09:00 Problem List - Problems (1) GI bleed Assessment/Plan: Given recent procedure, my suspicion is for post polypectomy bleeding. I discussed this with Mr. Mercado. We discussed colonoscopy for further evaluation and treatment . WQe discussed potential risks of the procedure like but not limited to bleeding, perforation requiring surgery to repair, infection , sedation medication effects all of which could be potentially life threatening. He has agreed to the procedure For now: ICU monitoring NPO Code(s): K92.2 - GASTROINTESTINAL HEMORRHAGE, UNSPECIFIED Qualifiers: GI bleed type/associated pathology: unspecified gastrointestinal hemorrhage type Qualified Code(s): K92.2 - Gastrointestinal hemorrhage, unspecified
[2018-01-19] MEDS ORDERED: AMPICILLIN - 2 GM in SODIUM CHLORIDE 100 ML IVPB ONE (15:44)
[2018-01-19] MEDS ORDERED: AMPICILLIN SODIUM 2 GM VIAL ONE (16:06)
[2018-01-19] MEDS ORDERED: AMPICILLIN SODIUM 2 GM VIAL IVPB ONE (16:10)
--- NOTE | 2018-01-19 17:37 | PN ---
Progress Note (short form) - Note Progress Note: Colonoscopy complete. Report placed in procedural section of physical chart and to be scanned into [employer] Problem List - Problems (1) GI bleed Code(s): K92.2 - GASTROINTESTINAL HEMORRHAGE, UNSPECIFIED Qualifiers: GI bleed type/associated pathology: unspecified gastrointestinal hemorrhage type Qualified Code(s): K92.2 - Gastrointestinal hemorrhage, unspecified
[2018-01-19] MEDS ORDERED: DEXTROSE 5%-0.45% SALINE 1,000 ML IV SCH (18:00)
[2018-01-19] MEDS ORDERED: BENZOCAINE/MENTH/CETYLPYRD CL 1 EACH LOZENGE MM PRN (19:29)
[2018-01-19 20:37] LABS: HEMATOCRIT 24.1 % (35.4-49); HEMOGLOBIN 7.8 GM/dL (11.7-16.9); MCH 27.1 pg (25.7-33.7); MCHC 32.4 g/dl (32.0-35.9); MEAN CELL VOLUME 83.6 fl (80-96); MEAN PLT VOLUME 8.7 fl (7.5-11.1); PLATELET COUNT 128 K/MM3 (134-434); RBC 2.88 M/mm3 (4.00-5.60); RDW 16.6 % (11.9-15.9); WHITE BLOOD COUNT 6.3 K/mm3 (4.0-10.0)
[2018-01-19] MEDS: MUPIROCIN 2% TOPICAL OINTMENT FOR DECOLONIZATION NS SCH (21:36)
[2018-01-19] MEDS: CHLORHEXIDINE GLUCONATE 4% CLEANSER FOR DECOLONIZATION TP SCH (21:37)
[2018-01-19] MEDS ORDERED: PATIENT'S OWN MEDICATION (NON-FORMULARY) (Ascorbate Calcium [Vitamin C] 500 MG) PO SCH (22:00)
[2018-01-19] MEDS ORDERED: guaiFENesin/CODEINE 10 ML UNIT-DOSE CUPS PO ONE (22:15)
[2018-01-19] MEDS ORDERED: ALBUTEROL SO4 0.083% IH SOL 2.5 MG/3 ML VIAL.NEB. NEB STA (23:09)
[2018-01-19] MEDS ORDERED: methylPREDNISolone NA SUCC 40 MG/1 ML VIAL IVPUSH ONE (23:10)
[2018-01-19] MEDS ORDERED: methylPREDNISolone NA SUCC 125 MG/2 ML VIAL ONE (23:13)
[2018-01-19] MEDS ORDERED: ACETAMINOPHEN 1000 MG/100 ML VIAL (NON FORMULARY) IVPB ONE (23:17)
[2018-01-19] MEDS ORDERED: DEXTROMETHORPHAN/PROMETHAZINE 15 MG/6.25 MG/5 ML SYRUP PO ONE (23:30)
[2018-01-19] MEDS: CEFTRIAXONE 1 GM in DEXTROSE 5%-WATER - 50 ML IVPB SCH (23:55)
[2018-01-20 06:34] LABS: BASO % 0.1 % (0-2.0); HEMATOCRIT 21.6 % (35.4-49); LYMPH % 6.6 % (8-40); MCH 26.6 pg (25.7-33.7); MCHC 32.1 g/dl (32.0-35.9); MEAN CELL VOLUME 82.8 fl (80-96); MEAN PLT VOLUME 8.3 fl (7.5-11.1); MONO % 2.2 % (3.8-10.2); NEUT % 91.1 % (42.8-82.8); PLATELET COUNT 113 K/MM3 (134-434); RBC 2.61 M/mm3 (4.00-5.60); RDW 16.2 % (11.9-15.9); WHITE BLOOD COUNT 16.1 K/mm3 (4.0-10.0)
[2018-01-20 06:48] LABS: HEMOGLOBIN 6.9 GM/dL (11.7-16.9)
[2018-01-20 06:55] LABS: CHLORIDE 104 mmol/L (98-107); POTASSIUM 3.8 mmol/L (3.5-5.1); SODIUM 138 mmol/L (136-145)
[2018-01-20 07:03] LABS: ALBUMIN 2.4 g/dl (3.4-5.0); ALK PHOS 179 U/L (45-117); ANION GAP 12 MMOL/L (8-16); BILIRUBIN,TOTAL 0.4 mg/dL (0.2-1.0); BLOOD UREA NITROGEN 27 mg/dL (7-18); CALCIUM 7.5 mg/dL (8.5-10.1); CO2 22 mmol/L (21-32); CREATININE 2.1 mg/dL (0.7-1.3); GLUCOSE,RANDOM 216 mg/dL (74-106); MAGNESIUM 1.8 mg/dL (1.8-2.4); PHOSPHOROUS 4.5 mg/dL (2.5-4.9); SGOT/AST 47 U/L (15-37); SGPT/ALT 43 U/L (12-78); TOT PROT 6.3 g/dl (6.4-8.2)
--- NOTE | 2018-01-20 08:40 | PN ---
GI Progress Note Subjective: No overt bleeding Hgb 6.9 this morning Denies any focal complaints - Objective Vital Signs: Vital Signs Temperature 97.8 F 01/20/18 08:00 Pulse Rate 88 01/20/18 08:00 Respiratory Rate 20 01/20/18 08:00 Blood Pressure 156/59 01/20/18 08:00 O2 Sat by Pulse Oximetry (%) 99 01/20/18 07:45 Constitutional: Calm Eyes: No: Sclera Icterus Cardiovascular: Yes: Regular Rate and Rhythm, Murmur Respiratory: Yes: CTA Bilaterally Gastrointestinal Inspection: No: Distention ...Auscultate: Yes: Normoactive Bowel Sounds ...Palpate: Yes: Soft. No: Tenderness Edema: No (No LE edema) Neurological: Yes: Alert (Awake) Labs: CBC, BMP 01/20/18 05:30 01/20/18 05:30 INR, PTT INR 1.11 (0.83-1.09) H 01/19/18 09:00 Problem List - Problems (1) GI bleed Assessment/Plan: S/P colonoscopy with epinephrine injection and endoclipping of bleeding visible vessel in the proximal transverse colon No over bleeding reported Transfuse 1 U PRBC Clear liquids only Continue to monitor for active bleeding Code(s): K92.2 - GASTROINTESTINAL HEMORRHAGE, UNSPECIFIED Qualifiers: GI bleed type/associated pathology: unspecified gastrointestinal hemorrhage type Qualified Code(s): K92.2 - Gastrointestinal hemorrhage, unspecified
[2018-01-20 09:05] LABS: GAMMA GLUTAMYL TRANSPEPTIDASE 241 U/L (5-85)
--- NOTE | 2018-01-20 09:59 | PN ---
Physical Exam: SUBJECTIVE: Patient is a 72 y/o male with a history of HTN, HLD, s/p aortic valve replacement and pacemaker who presents for rectal bleeding. Patient tolerated his colonoscpy well. Overnight he had long fits of coughing. Chest XRay showed possible new MIKHAIL infiltrate, emperic antibiotics were started. Patient had a low hgb and one unit of PRBC was ordered. OBJECTIVE: Vital Signs Temperature 97.8 F 01/20/18 08:00 Pulse Rate 88 01/20/18 08:00 Respiratory Rate 20 01/20/18 08:00 Blood Pressure 156/59 01/20/18 08:00 O2 Sat by Pulse Oximetry (%) 99 01/20/18 07:45 GENERAL: Awake, alert, and fully oriented, in no acute distress. HEAD: Normal with no signs of trauma. ENT: moist mucus membranes EYES: Pupils equal, round and reactive to light, extraocular movements intact LUNGS: Breath sounds equal, clear to auscultation bilaterally. HEART: Regular rate and rhythm, systolic murmur at left upper sternal border, radiates to carotids ABDOMEN: Soft, nontender, not distended, normoactive bowel sounds, MUSCULOSKELETAL: Normal range of motion at all joints. LOWER EXTREMITIES: 2+ dp pulses, warm, well-perfused. No calf tenderness. No peripheral edema. SKIN: Warm, dry, normal turgor, no rashes or lesions noted. RECTAL: stool felt in vault, no lesions felt inside, nothing visualized on outside CBCD WBC 16.1 K/mm3 (4.0-10.0) H 01/20/18 05:30 RBC 2.61 M/mm3 (4.00-5.60) L 01/20/18 05:30 Hgb 6.9 GM/dL (11.7-16.9) L* 01/20/18 05:30 Hct 21.6 % (35.4-49) L 01/20/18 05:30 MCV 82.8 fl (80-96) 01/20/18 05:30 MCHC 32.1 g/dl (32.0-35.9) 01/20/18 05:30 RDW 16.2 % (11.9-15.9) H 01/20/18 05:30 Plt Count 113 K/MM3 (134-434) L 01/20/18 05:30 MPV 8.3 fl (7.5-11.1) 01/20/18 05:30 CMP Sodium 138 mmol/L (136-145) 01/20/18 05:30 Potassium 3.8 mmol/L (3.5-5.1) 01/20/18 05:30 Chloride 104 mmol/L (98-107) 01/20/18 05:30 Carbon Dioxide 22 mmol/L (21-32) 01/20/18 05:30 Anion Gap 12 MMOL/L (8-16) 01/20/18 05:30 BUN 27 mg/dL (7-18) H 01/20/18 05:30 Creatinine 2.1 mg/dL (0.7-1.3) H 01/20/18 05:30 Creat Clearance w eGFR 31.29 (>60) 01/20/18 05:30 Calcium 7.5 mg/dL (8.5-10.1) L 01/20/18 05:30 Total Bilirubin 0.4 mg/dL (0.2-1.0) 01/20/18 05:30 AST 47 U/L (15-37) H D 01/20/18 05:30 ALT 43 U/L (12-78) D 01/20/18 05:30 Alkaline Phosphatase 179 U/L (45-117) H D 01/20/18 05:30 Total Protein 6.3 g/dl (6.4-8.2) L 01/20/18 05:30 Albumin 2.4 g/dl (3.4-5.0) L 01/20/18 05:30 Active Medications Benzocaine/Menthol (Cepacol Lozenge -) 1 each MM Q6H PRN PRN Reason: SORE THROAT Chlorhexidine Gluconate (Hibiclens For Decolonization -) 1 applic TP HS [facility] Last Admin: 01/19/18 21:37 Dose: 1 applic Hydralazine HCl (Apresoline Injection -) 10 mg IVPUSH TID [facility] Last Admin: 01/19/18 21:35 Dose: 10 mg Dextrose/Sodium Chloride (D5-1/2ns -) 1,000 mls @ 100 mls/hr IV ASDIR LOV[facility] Last Admin: 01/19/18 19:30 Dose: 100 mls/hr Azithromycin 500 mg/ Dextrose 250 mls @ 250 mls/hr IVPB DAILY [facility] Ceftriaxone Sodium 1 gm/ (Dextrose) 50 mls @ 100 mls/hr IVPB DAILY [facility] Last Admin: 01/19/18 23:55 Dose: 100 mls/hr Mupirocin (Bactroban Ointment (For Decolonization) -) 1 applic NS BID [facility] Stop: 01/24/18 21:59 Last Admin: 01/19/18 21:36 Dose: 1 applic ASSESSMENT/PLAN: Patient is a 72 y/o male with a history of HTN, HLD, s/p aortic valve replacement and pacemaker who presents for rectal bleeding. 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 Chaves Transaminitis - baseline from last visit - positive GGT, liver related - hepatitis panel from last visit negative Renal CKD - Creatinine trending down, patient evaluated last week for CKD - kidney function at baseline, stage 3 CKD - renal US last visit showed : no hydronephrosis, slightly increased echogonecity - f/u Misbah, no WOJCIECH/ARB at this time - DC D5 fluid as patient tolerating po fluids, urine output adequate, new infiltrate on lung possible congestion, monitor fluid status Hematology Anemia 2/2 to GI blood loss - transfuse if drops below 7 - patient hgb 6.9 - received 1 unit PRBC today, f/u CBC - continue Ferrous 325 mg BID once po meds resumed Possible MM - SPEP pending - positive JAYDE - saw Dr. Dobson at last visit, will make an appointment to follow up with her as an outpatient Infectious Disease PNA - new on CXR patchy left infiltrate - Azythromycin 500 mg ( day 1) - Ceftriaxone 1 gm ( day 1) - f/u ferraro culture FEN - clear liquids Dispo: if CBC stable can be transfered to floors Visit type - Emergency Visit Emergency Visit: No - New Patient This patient is new to me today: No - Critical Care Critical Care patient: Yes Total Critical Care Time (in minutes): 40 Critical Care Statement: The care of this patient involved high complexity decision making to prevent further life threatening deterioration of the patient 's condition and/or to evaluate & treat vital organ system(s) failure or risk of failure.
[2018-01-20] MEDS ORDERED: AZITHROMYCIN IVPB 500 MG in DEXTROSE 5%-WATER - 250 ML IVPB SCH (10:00)
[2018-01-20] MEDS ORDERED: FERROUS SO4 325 MG TABLET (FP) PO SCH (10:00)
[2018-01-20] MEDS ORDERED: metoPROLOL SUCCINATE 25 MG TAB.SR.24H (FP) PO SCH (10:00)
[2018-01-20 10:50] LABS: ANISOCYTOSIS 1+; MACROCYTOSIS 0; PLATELET ESTIMATE DECREASED
[2018-01-20] MEDS ORDERED: cefTRIAXone SODIUM 1 GM VIAL ONE (11:23)
[2018-01-20] MEDS ORDERED: DEXTROSE 5%-WATER - 50 ML IVPB ONE ×3 (11:24→22:36)
[2018-01-20] MEDS ORDERED: hydrALAZINE HCL 20 MG/ML VIAL IVPUSH ONE (11:27)
[2018-01-20] MEDS: CEFTRIAXONE 1 GM in DEXTROSE 5%-WATER - 50 ML IVPB SCH (11:40)
--- NOTE | 2018-01-20 11:40 | PN ---
Teaching Attending Note Name of Resident: Maria A Payan ATTENDING PHYSICIAN STATEMENT I saw and evaluated the patient. I reviewed the resident's note and discussed the case with the resident. I agree with the resident's findings and plan as documented. SUBJECTIVE: Pt seen and examined in the ICU. s/p colonoscopy showing bleeding vessel in transverse colon s/p epinephrine injection and endoclipping. No bowel movements since. Receiving PRBC this AM. Febrile overnight, CXR showing left sided infiltrate. OBJECTIVE: Vital Signs Period Temp Pulse Resp BP Sys/Burnett Pulse Ox Last 24 Hr 97.8 F-100.6 F 65-130 11-26 126-174/54-75 96-99 Intake & Output 01/17/18 01/18/18 01/19/18 01/20/18 23:59 23:59 23:59 23:59 Intake Total 800 1114 Output Total 300 700 Balance 500 414 Weight 71.214 kg Gen: NAD at rest Heart: RRR Lung: decreased breath sounds at the bases Abd: soft, nontender Ext: no edema CBC, BMP 01/20/18 05:30 01/20/18 05:30 Active Medications Benzocaine/Menthol (Cepacol Lozenge -) 1 each MM Q6H PRN PRN Reason: SORE THROAT Chlorhexidine Gluconate (Hibiclens For Decolonization -) 1 applic TP HS [facility] Last Admin: 01/19/18 21:37 Dose: 1 applic Hydralazine HCl (Apresoline -) 50 mg PO TID [facility] Dextrose/Sodium Chloride (D5-1/2ns -) 1,000 mls @ 100 mls/hr IV ASDIR [facility] Last Admin: 01/19/18 19:30 Dose: 100 mls/hr Azithromycin 500 mg/ Dextrose 250 mls @ 250 mls/hr IVPB DAILY [facility] Ceftriaxone Sodium 1 gm/ (Dextrose) 50 mls @ 100 mls/hr IVPB DAILY [facility] Last Admin: 01/19/18 23:55 Dose: 100 mls/hr Mupirocin (Bactroban Ointment (For Decolonization) -) 1 applic NS BID [facility] Stop: 01/24/18 21:59 Last Admin: 01/19/18 21:36 Dose: 1 applic ASSESSMENT AND PLAN: GI Bleed Acute Blood Loss Anemia Thrombocytopenia Pneumonia HTN Hyperlipidemia h/o bio AVR s/p PPM CKD - monitor H/H - transfuse as needed - clears per GI - continue antibiotics - f/u cultures - BP control - can monitor on floor if H/H stable post transfusion
--- NOTE | 2018-01-20 12:06 | CONSULT ---
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 S/p Colonoscopy that showed a bleeding vessel in transverse colon. Pt awake and alert, no acute complaints at the present time. No abd pain, N/V/D. On Clear liquid diet. No SOB or cp but does have cough. No fever or chills. Making urine w/o difficulty, no flank pain, hematuria or dysuria. PMHx: as above Allergies: NKDA Family Hx: NC Social Hx: no T/A/D ROS: as per HPI Vital Signs Temperature 97.8 F 01/20/18 08:00 Pulse Rate 70 01/20/18 10:00 Respiratory Rate 18 01/20/18 10:00 Blood Pressure 148/61 01/20/18 10:00 O2 Sat by Pulse Oximetry (%) 99 01/20/18 07:45 Intake & Output 01/17/18 01/18/18 01/19/18 01/20/18 23:59 23:59 23:59 23:59 Intake Total 800 1114 Output Total 300 700 Balance 500 414 Weight 71.214 kg NAD awake and alert Neck supple No JVD RRR, + M CTA, no rales soft NT/ND, no rebound or guarding No LE edmea no bladder distension CBC, BMP 01/20/18 05:30 01/20/18 05:30 Current Medications Benzocaine/Menthol (Cepacol Lozenge -) 1 each MM Q6H PRN PRN Reason: SORE THROAT Chlorhexidine Gluconate (Hibiclens For Decolonization -) 1 applic TP HS [facility] Last Admin: 01/19/18 21:37 Dose: 1 applic Hydralazine HCl (Apresoline -) 50 mg PO TID [facility] Dextrose/Sodium Chloride (D5-1/2ns -) 1,000 mls @ 100 mls/hr IV ASDIR [facility] Last Admin: 01/19/18 19:30 Dose: 100 mls/hr Azithromycin 500 mg/ Dextrose 250 mls @ 250 mls/hr IVPB DAILY [facility] Ceftriaxone Sodium 1 gm/ (Dextrose) 50 mls @ 100 mls/hr IVPB DAILY [facility] Last Admin: 01/20/18 11:40 Dose: 100 mls/hr Mupirocin (Bactroban Ointment (For Decolonization) -) 1 applic NS BID [facility] Stop: 01/24/18 21:59 Last Admin: 01/19/18 21:36 Dose: 1 applic 72 year old gentleman with Hx of CKD stage 4 with subnephrotic proteinuira (+ JAYDE, 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 #Acute GIB #Anemia #CKD Stage 4 with proteinuria #Abnormal SPEP #Leukocytosis with ? PNA s/p Colonoscopy by GI currently getting PRBC transfusion Trend H/H, transfuse as per ICU protocol GI following renal function at baseline would not start WOJCIECH/ARB at this time as pt is at afsaneh of developing potential hypovolemia from bleed will need outpatient Heme work up for abnormal JAYDE CXR shows possible PNA on Empiric Abx Cultures pending Thank you Will follow Dov Crawley DO
[2018-01-20] MEDS: hydrALAZINE HCL 50 MG TABLET (FP) PO SCH ×3 (12:13→22:40)
[2018-01-20] MEDS: MUPIROCIN 2% TOPICAL OINTMENT FOR DECOLONIZATION NS SCH ×2 (12:17→22:33)
[2018-01-20] MEDS ORDERED: DEXTROSE 5%-0.45% SALINE 1,000 ML IV SCH (14:03)
[2018-01-20 14:17] LABS: URINE CREATININE 98.5 mg/dL (20-370)
[2018-01-20 14:23] LABS: BASO % 0.1 % (0-2.0); HEMATOCRIT 24.5 % (35.4-49); HEMOGLOBIN 7.9 GM/dL (11.7-16.9); LYMPH % 8.6 % (8-40); MCH 27.3 pg (25.7-33.7); MCHC 32.4 g/dl (32.0-35.9); MEAN CELL VOLUME 84.3 fl (80-96); MEAN PLT VOLUME 8.1 fl (7.5-11.1); MONO % 5.3 % (3.8-10.2); PLATELET COUNT 112 K/MM3 (134-434); RDW 16.5 % (11.9-15.9)
--- NOTE | 2018-01-20 15:00 | PN ---
Progress Note, Physician Chief Complaint: Patient feels comfortable no bleeding TX since last night had low grade fever and cough CXR shows Left LL infiltrate - Current Medication List Current Medications: Benzocaine/Menthol (Cepacol Lozenge -) 1 each MM Q6H PRN PRN Reason: SORE THROAT Chlorhexidine Gluconate (Hibiclens For Decolonization -) 1 applic TP HS [facility] Last Admin: 01/19/18 21:37 Dose: 1 applic Ferrous Sulfate (Feosol -) 325 mg PO DAILY [facility] Hydralazine HCl (Apresoline -) 50 mg PO TID [facility] Last Admin: 01/20/18 15:49 Dose: Not Given Piperacillin Sod/Tazobactam (Sod 3.375 gm/ Dextrose) 50 mls @ 100 mls/hr IVPB Q6H-IV [facility]; Protocol Insulin Aspart (Novolog Vial Sliding Scale -) 1 vial SQ ACHS [facility]; Protocol Last Admin: 01/20/18 17:48 Dose: 2 unit Metoprolol Succinate (Toprol Xl -) 25 mg PO DAILY [facility] Mupirocin (Bactroban Ointment (For Decolonization) -) 1 applic NS BID [facility] Stop: 01/24/18 21:59 Last Admin: 01/20/18 12:17 Dose: 1 applic - Objective Vital Signs: Vital Signs Temperature 98 F 01/20/18 12:00 Pulse Rate 98 H 01/20/18 14:00 Respiratory Rate 18 01/20/18 14:00 Blood Pressure 132/36 01/20/18 14:00 O2 Sat by Pulse Oximetry (%) 99 01/20/18 07:45 Elderly man comfortable not in distress HEENT: MM moist, anemia, PERRLA, EOMI NECK: Supple No JVd No Bruit CHEST: Non tender Left LL crepts + CVS: S1S2 R SM in AA no /g/r ABD: No distention non tender Bs + EXT: No Edema feet no calf tenderness, pulses + FLOOR CARE SPECIALIST: AOx3 non focal, Rt hemifacial spasms. Labs: CBC, BMP 01/20/18 14:14 01/20/18 05:30 INR, PTT INR 1.11 (0.83-1.09) H 01/19/18 09:00 - ....Imaging Chest X-ray: Report Reviewed (Left LL Infithrate) Problem List - Problems (1) Lower gastrointestinal bleed Assessment/Plan: Underwent colonoscopy that shows bleeding vessel, endoclipping and epinephrine injected around the bleeder, no bleeding since the procedure, drop in H/h 1 unit PRBC transfused. Code(s): K92.2 - GASTROINTESTINAL HEMORRHAGE, UNSPECIFIED (2) CKD stage 4 due to type 2 diabetes mellitus Assessment/Plan: Renal functions are at base line. Code(s): E11.22 - TYPE 2 DIABETES MELLITUS W DIABETIC CHRONIC KIDNEY DISEASE; N18.4 - CHRONIC KIDNEY DISEASE, STAGE 4 (SEVERE) (3) Pacemaker Assessment/Plan: Due to Sa node dysfunction evaluated during previous Hospitalization. Code(s): Z95.0 - PRESENCE OF CARDIAC PACEMAKER (4) HTN (hypertension) Assessment/Plan: Well controlled will hold BP meds as BP IS BORDERLINE Code(s): I10 - ESSENTIAL (PRIMARY) HYPERTENSION (5) History of aortic valve replacement with bioprosthetic valve Assessment/Plan: No active issue, previous ECHO SHOWS AR and MR Code(s): Z95.3 - PRESENCE OF XENOGENIC HEART VALVE (6) Thrombocytopenia Assessment/Plan: Chronic Platelet count is stable Code(s): D69.6 - THROMBOCYTOPENIA, UNSPECIFIED (7) Left lower lobe pneumonia Assessment/Plan: Patient had an episode of cough and low grade fever last night CXR shows Left sided, elevated TWBC, initial admission X ray was normal, considering post procedure possibility of aspiration Pneumonia / HCAP l (less likely considering no cough or fever at home and admission CXR was normal with base line Creat), F /U U legionealla Ag , sputum gram stain and culture, blood culture , ID consult , one dose Vancomycin , Dc Ceftriaxone add on Zosyn . Code(s): J18.1 - LOBAR PNEUMONIA, UNSPECIFIED ORGANISM (8) Anemia due to acute blood loss Assessment/Plan: Worsening anemia with drop in H/H to 6.9 received 1 unit PRBC, will F/U H/H Code(s): D62 - ACUTE POSTHEMORRHAGIC ANEMIA
[2018-01-20] MEDS ORDERED: VANCOMYCIN 1,000 MG in DEXTROSE 5%-WATER - 250 ML IVPB ONE (15:30)
[2018-01-20] MEDS ORDERED: PIPERACILLIN/TAZOBACTAM 2.25 GM VIAL IVPB ONE (15:59)
[2018-01-20] MEDS ORDERED: PIPERACILLIN/TAZOB 2.25 GM 2.25 GM in DEXTROSE 5%-WATER - 50 ML IVPB ONE (16:30)
[2018-01-20] MEDS: INSULIN SLIDING SCALE (NOVOLOG) 1 VIAL SQ SCH ×2 (17:48→23:21)
--- NOTE | 2018-01-20 18:16 | CON.ID ---
Consult - History of Present Illness History of Present Illness: Asked to evaluate this 72 y.o. male with PMH of CKD, PPM, s/p bioprosthetic AVR , HTN, HLD, anemia s/p recent EGD/colonoscopy with polypectomies who was admitted for BRBPR. He underwent repeat colonoscopy and found to have bleeding vessel in the transverse colon. Last night patient had low grade fevers and severe cough with CXR revealing a new Lt pulmonary infiltrate and empiric antibiotics were initiated. Currently patient is alert, afebrile. States he feels well. Denies chest pain, SOB, abd pain/n/v/d, no current rectal bleed. - History Source History Provided By: Patient Limitations to Obtaining History: No Limitations - Past Medical History Cardio/Vascular: Yes: Hyperlipdemia, Other (Aortic valve disease) Gastrointestinal: Yes: GI Bleed Renal/: Yes: Renal Failure Heme/Onc: Yes: Anemia Additional Medical History: Tricuspid regurg, Aortic regurg - Past Surgical History Past Surgical History: Yes: Permanent Pacemaker (Placed secondary to A. Cecilia ), Valve Replacement (Aortic valve in the : porcine jitendra that was repaired 24 hours after initial surgery with bovine tissue.) - Alcohol/Substance Use Hx Alcohol Use: No - Smoking History Smoking history: Former smoker Have you smoked in the past 12 months: No If you are a former smoker, when did you quit?: 40 years ago - Social History Usual Living Arrangement: Alone (Lives in [facility]) ADL: Independent Occupation: Retired: worked for [employer], never been aexposed to fumes History of Recent Travel: Yes ([facility]. ) Home Medications - Allergies Allergies/Adverse Reactions: Allergies Allergy/AdvReac Type Severity Reaction Status Date / Time amlodipine Allergy Verified 01/19/18 08:13 lisinopril Allergy Swelling Verified 01/19/18 08:13 - Home Medications Home Medications: Ambulatory Orders Metoprolol Succinate 25 mg PO DAILY 01/02/18 Ferrous Sulfate [Feosol] 325 mg PO DAILY #30 tab 01/09/18 Hydralazine HCl 50 mg PO TID #90 tab 01/09/18 Ascorbate Calcium [Vitamin C] 500 mg PO BID 01/19/18 Family Disease History - Family Disease History Family Disease History: Other: Father (: details not available ), Mother ( : 87: from cancer details not available ), Sister (2, 1 with h/o colon cancer, DM II), Son (3, healthy), Daughter (1, healthy) Review of Systems - Review of Systems Constitutional: reports: No Symptoms. denies: Chills, Diaphoresis, Fever, Lethargy, Loss of Appetite, Malaise, Night Sweats, Unintentional Wgt. Loss, Weakness, Other Eyes: reports: No Symptoms HENT: reports: No Symptoms Neck: reports: No Symptoms Cardiovascular: reports: No Symptoms Respiratory: reports: No Symptoms Gastrointestinal: reports: No Symptoms Genitourinary: reports: No Symptoms. denies: Burning, Discharge, Dysuria, Flank Pain, Frequency, Hematuria, Incontinence, Lesions, Menses, Pain, Testicular Mass, Testicular Pain, Testicular Swelling, Urgency, Vaginal Bleeding , Other Musculoskeletal: reports: No Symptoms. denies: Back Pain, Crepitus, Decreased ROM, Extremity Pain, Joint Pain, Joint Swelling, Muscle Pain, Muscle Cramps, Muscle Weakness, Other Integumentary: reports: No Symptoms. denies: Blister, Bruising, Change in Color , Eczema, Erythema, Incision, Lesions, Lump, Pallor, Pruritis, Rash, Wound, Other Neurological: reports: No Symptoms. denies: Change in LOC, Change in Speech, Confusion, Dizziness, Headache, Incoordination, Numbness, Parasthesia, Pre- Existing Deficit, Seizure, Syncope, Tremors, Unsteady Gait, Weakness, Other Psychiatric: reports: No Symptoms. denies: Altered Sleep Pattern, Anxiety, Depression, Hallucinations, Panic, Paranoia, Suicidal, Other Physical Exam Vital Signs: Vital Signs Temperature 98 F 01/20/18 12:00 Pulse Rate 98 H 01/20/18 14:00 Respiratory Rate 18 01/20/18 14:00 Blood Pressure 132/36 01/20/18 14:00 O2 Sat by Pulse Oximetry (%) 99 01/20/18 07:45 Constitutional: Yes: No Distress, Calm Eyes: Yes: WNL HENT: Yes: Atraumatic, Normocephalic Neck: Yes: Supple Cardiovascular: Yes: Regular Rate and Rhythm Respiratory: Yes: Diminished (slightly diminished at bases) Gastrointestinal: Yes: Normal Bowel Sounds, Soft Renal/: Yes: WNL Musculoskeletal: Yes: WNL Extremities: Yes: WNL Edema: No Integumentary: Yes: WNL Neurological: Yes: Alert Psychiatric: Yes: Alert Labs: CBC, BMP 01/20/18 14:14 01/20/18 05:30 Microbiology 01/20/18 12:20 Urine For Antigen Detection Legionella Antigen - Final 01/20/18 12:20 Urine For Antigen Detection Streptococcus pneumoniae Antigen (M - Final 01/19/18 23:45 Sputum - Expectorated Gram Stain - Final Blood cultures- pending Imaging - Results Chest X-ray: Report Reviewed Problem List - Problems (1) Anemia due to gastrointestinal blood loss Code(s): D50.0 - IRON DEFICIENCY ANEMIA SECONDARY TO BLOOD LOSS (CHRONIC) (2) CKD stage 4 due to type 2 diabetes mellitus Code(s): E11.22 - TYPE 2 DIABETES MELLITUS W DIABETIC CHRONIC KIDNEY DISEASE; N18.4 - CHRONIC KIDNEY DISEASE, STAGE 4 (SEVERE) (3) GI bleed Code(s): K92.2 - GASTROINTESTINAL HEMORRHAGE, UNSPECIFIED Qualifiers: GI bleed type/associated pathology: unspecified gastrointestinal hemorrhage type Qualified Code(s): K92.2 - Gastrointestinal hemorrhage, unspecified (4) HTN (hypertension) Code(s): I10 - ESSENTIAL (PRIMARY) HYPERTENSION (5) Left lower lobe pneumonia Code(s): J18.1 - LOBAR PNEUMONIA, UNSPECIFIED ORGANISM (6) Pacemaker Code(s): Z95.0 - PRESENCE OF CARDIAC PACEMAKER (7) History of aortic valve replacement with bioprosthetic valve Code(s): Z95.3 - PRESENCE OF XENOGENIC HEART VALVE Assessment/Plan 72 y.o. male with PMH of CKD, HTN, HLD, s/p PPM and bioprosthetic AVR, and anemia who underwent EGD/Colonoscopy and polypectomies during recent hospitalization admitted with BRBPR. He underwent repeat colonoscopy and found to have active bleed in transverse colon. Overnight became short of breath, coughing, and febrile. CXR shows new pulmonary infiltrate. Lt lung PNA - Aspiration vs. HCAP LGIB Anemia CKD s/p PPM s/p AVR -- labs/images reviewed -- continue Zosyn IV -- f/u blood/resp cultures -- wbc elevated, steroids administered - monitor -- pt currently afebrile, without acute distress -- GI following cc time: 40 min
[2018-01-20 19:33] LABS: RATIO URIN PROTEIN/URIN CREAT 2.14 MG/DL
--- NOTE | 2018-01-20 21:26 | PN ---
Progress Note, Physician - Current Medication List Current Medications: Active Medications Benzocaine/Menthol (Cepacol Lozenge -) 1 each MM Q6H PRN PRN Reason: SORE THROAT Chlorhexidine Gluconate (Hibiclens For Decolonization -) 1 applic TP HS [facility] Last Admin: 01/19/18 21:37 Dose: 1 applic Ferrous Sulfate (Feosol -) 325 mg PO DAILY [facility] Hydralazine HCl (Apresoline -) 50 mg PO TID [facility] Last Admin: 01/20/18 15:49 Dose: Not Given Piperacillin Sod/Tazobactam (Sod 3.375 gm/ Dextrose) 50 mls @ 100 mls/hr IVPB Q6H-IV [facility]; Protocol Insulin Aspart (Novolog Vial Sliding Scale -) 1 vial SQ ACHS [facility]; Protocol Last Admin: 01/20/18 17:48 Dose: 2 unit Metoprolol Succinate (Toprol Xl -) 25 mg PO DAILY [facility] Mupirocin (Bactroban Ointment (For Decolonization) -) 1 applic NS BID [facility] Stop: 01/24/18 21:59 Last Admin: 01/20/18 12:17 Dose: 1 applic - Objective Vital Signs: Vital Signs Temperature 98 F 01/20/18 16:00 Pulse Rate 88 01/20/18 18:00 Respiratory Rate 13 01/20/18 18:00 Blood Pressure 166/63 01/20/18 18:00 O2 Sat by Pulse Oximetry (%) 99 01/20/18 07:45 Labs: CBC, BMP 01/20/18 14:14 01/20/18 05:30 INR, PTT INR 1.11 (0.83-1.09) H 01/19/18 09:00 Problem List - Problems (1) Anemia due to gastrointestinal blood loss Code(s): D50.0 - IRON DEFICIENCY ANEMIA SECONDARY TO BLOOD LOSS (CHRONIC) (2) GI bleed Code(s): K92.2 - GASTROINTESTINAL HEMORRHAGE, UNSPECIFIED Qualifiers: GI bleed type/associated pathology: unspecified gastrointestinal hemorrhage type Qualified Code(s): K92.2 - Gastrointestinal hemorrhage, unspecified (3) CKD stage 4 due to type 2 diabetes mellitus Code(s): E11.22 - TYPE 2 DIABETES MELLITUS W DIABETIC CHRONIC KIDNEY DISEASE; N18.4 - CHRONIC KIDNEY DISEASE, STAGE 4 (SEVERE) (4) Pacemaker Code(s): Z95.0 - PRESENCE OF CARDIAC PACEMAKER (5) HTN (hypertension) Code(s): I10 - ESSENTIAL (PRIMARY) HYPERTENSION (6) Lower gastrointestinal bleed Code(s): K92.2 - GASTROINTESTINAL HEMORRHAGE, UNSPECIFIED Assessment/Plan Patient is stable. Out of bed in chair. No further bleeding noted. Colonoscopy , noted bleeding from the proximal transverse colon. Controlled. Anemia is being corrected. Continue to monitor hematocrit, for ongoing bleeding.
[2018-01-20] MEDS: PIPERACILLIN/TAZOB 3.375 GM 3.375 GM in DEXTROSE 5%-WATER - 50 ML IVPB SCH (22:00)
[2018-01-20] MEDS: CHLORHEXIDINE GLUCONATE 4% CLEANSER FOR DECOLONIZATION TP SCH (22:32)
[2018-01-20] MEDS ORDERED: PIPERACILLIN/TAZOBACTAM 3.375 GM VIAL IVPB ONE (22:36)
[2018-01-21] MEDS: PIPERACILLIN/TAZOB 3.375 GM 3.375 GM in DEXTROSE 5%-WATER - 50 ML IVPB SCH ×4 (04:00→20:58)
[2018-01-21] MEDS ORDERED: PIPERACILLIN/TAZOBACTAM 3.375 GM VIAL IVPB ONE ×4 (04:08→20:54)
[2018-01-21] MEDS ORDERED: DEXTROSE 5%-WATER - 50 ML IVPB ONE ×4 (04:08→20:55)
[2018-01-21] MEDS: hydrALAZINE HCL 50 MG TABLET (FP) PO SCH ×3 (06:00→20:59)
[2018-01-21 06:12] LABS: BASO % 0.1 % (0-2.0); EOS % 0.2 % (0-4.5); HEMATOCRIT 24.8 % (35.4-49); HEMOGLOBIN 8.2 GM/dL (11.7-16.9); MCH 27.2 pg (25.7-33.7); MCHC 33.1 g/dl (32.0-35.9); MEAN CELL VOLUME 82.3 fl (80-96); MEAN PLT VOLUME 8.1 fl (7.5-11.1); MONO % 6.8 % (3.8-10.2); NEUT % 78.9 % (42.8-82.8); PLATELET COUNT 104 K/MM3 (134-434); RBC 3.01 M/mm3 (4.00-5.60); RDW 16.3 % (11.9-15.9); WHITE BLOOD COUNT 11.1 K/mm3 (4.0-10.0)
[2018-01-21 06:31] LABS: ALBUMIN 2.6 g/dl (3.4-5.0); ANION GAP 7 MMOL/L (8-16); BLOOD UREA NITROGEN 27 mg/dL (7-18); CALCIUM 7.4 mg/dL (8.5-10.1); CHLORIDE 101 mmol/L (98-107); CO2 27 mmol/L (21-32); GLUCOSE,RANDOM 96 mg/dL (74-106); POTASSIUM 3.9 mmol/L (3.5-5.1); SODIUM 135 mmol/L (136-145)
[2018-01-21 06:35] LABS: ALK PHOS 163 U/L (45-117); BILIRUBIN,TOTAL 0.5 mg/dL (0.2-1.0); CREATININE 2.2 mg/dL (0.7-1.3); SGOT/AST 41 U/L (15-37); SGPT/ALT 41 U/L (12-78); TOT PROT 6.6 g/dl (6.4-8.2)
[2018-01-21] MEDS: INSULIN SLIDING SCALE (NOVOLOG) 1 VIAL SQ SCH ×4 (06:58→23:28)
--- NOTE | 2018-01-21 08:33 | PN ---
GI Progress Note Subjective: No acute events S/P 1 U PRBC States feeling hungry - Objective Vital Signs: Vital Signs Temperature 98 F 01/21/18 04:00 Pulse Rate 91 H 01/21/18 08:00 Respiratory Rate 18 01/21/18 08:00 Blood Pressure 180/64 01/21/18 08:00 O2 Sat by Pulse Oximetry (%) 99 01/21/18 08:00 Constitutional: Calm Cardiovascular: Yes: Regular Rate and Rhythm ...Auscultate: Yes: Normoactive Bowel Sounds ...Palpate: No: Hepatomegaly, Splenomegaly, Tenderness ...Percussion: No: Tympanitic Edema: No Neurological: Yes: Alert Labs: CBC, BMP 01/21/18 05:30 01/21/18 05:30 INR, PTT INR 1.11 (0.83-1.09) H 01/19/18 09:00 Hepatic Panel Total Bilirubin 0.5 mg/dL (0.2-1.0) 01/21/18 05:30 AST 41 U/L (15-37) H 01/21/18 05:30 ALT 41 U/L (12-78) 01/21/18 05:30 Alkaline Phosphatase 163 U/L (45-117) H D 01/21/18 05:30 Albumin 2.6 g/dl (3.4-5.0) L 01/21/18 05:30 Problem List - Problems (1) GI bleed Assessment/Plan: Delayed postpolypectomy bleed: S/P endoclip and epinephrine injection therapy No overt bleeding since procedure wed evening Advanced to full liquids then regular diet in AM if no active bleeding Monitor for active GI bleeding Avoid NSAIDs Code(s): K92.2 - GASTROINTESTINAL HEMORRHAGE, UNSPECIFIED Qualifiers: GI bleed type/associated pathology: unspecified gastrointestinal hemorrhage type Qualified Code(s): K92.2 - Gastrointestinal hemorrhage, unspecified
--- NOTE | 2018-01-21 09:33 | PN ---
Teaching Attending Note Name of Resident: Maria A Payan ATTENDING PHYSICIAN STATEMENT I saw and evaluated the patient. I reviewed the resident's note and discussed the case with the resident. I agree with the resident's findings and plan as documented. SUBJECTIVE: Pt seen and examined in the ICU. No further bleeding. Tolerated clears. No abdominal pain. H/H has been stable. OBJECTIVE: Vital Signs Period Temp Pulse Resp BP Sys/Burnett Pulse Ox Last 24 Hr 98 F-98.2 F 70-99 13-22 132-180/36-69 99-99 Intake & Output 01/18/18 01/19/18 01/20/18 01/21/18 23:59 23:59 23:59 23:59 Intake Total 800 2618 100 Output Total 300 2700 1000 Balance 500 -82 -900 Weight 71.214 kg Gen: NAD at rest Heart: RRR Lung: decreased breath sounds at the bases Abd: soft, nontender Ext: no edema CBC, BMP 01/21/18 05:30 01/21/18 05:30 Active Medications Benzocaine/Menthol (Cepacol Lozenge -) 1 each MM Q6H PRN PRN Reason: SORE THROAT Chlorhexidine Gluconate (Hibiclens For Decolonization -) 1 applic TP HS [facility] Last Admin: 01/20/18 22:32 Dose: 1 applic Ferrous Sulfate (Feosol -) 325 mg PO DAILY [facility] Hydralazine HCl (Apresoline -) 50 mg PO TID [facility] Last Admin: 01/21/18 06:00 Dose: 50 mg Piperacillin Sod/Tazobactam (Sod 3.375 gm/ Dextrose) 50 mls @ 100 mls/hr IVPB Q6H-IV [facility]; Protocol Last Admin: 01/21/18 08:36 Dose: 100 mls/hr Insulin Aspart (Novolog Vial Sliding Scale -) 1 vial SQ ACHS [facility]; Protocol Last Admin: 01/21/18 06:58 Dose: Not Given Metoprolol Succinate (Toprol Xl -) 25 mg PO DAILY [facility] Mupirocin (Bactroban Ointment (For Decolonization) -) 1 applic NS BID [facility] Stop: 01/24/18 21:59 Last Admin: 01/20/18 22:33 Dose: 1 applic ASSESSMENT AND PLAN: GI Bleed Acute Blood Loss Anemia Thrombocytopenia Pneumonia HTN Hyperlipidemia h/o bio AVR s/p PPM CKD - monitor H/H - transfuse as needed - PO per GI - continue antibiotics - f/u cultures - BP control - can monitor on floor
[2018-01-21] MEDS: MUPIROCIN 2% TOPICAL OINTMENT FOR DECOLONIZATION NS SCH ×2 (09:35→23:28)
[2018-01-21] MEDS ORDERED: FERROUS SO4 325 MG TABLET (FP) PO SCH (10:00)
[2018-01-21] MEDS ORDERED: metoPROLOL SUCCINATE 25 MG TAB.SR.24H (FP) PO SCH (10:00)
--- NOTE | 2018-01-21 10:58 | PN ---
Progress Note, Physician Chief Complaint: No fever denies any cough or SOB no new episode of bleeding - Current Medication List Current Medications: Active Medications Benzocaine/Menthol (Cepacol Lozenge -) 1 each MM Q6H PRN PRN Reason: SORE THROAT Chlorhexidine Gluconate (Hibiclens For Decolonization -) 1 applic TP HS [facility] Last Admin: 01/20/18 22:32 Dose: 1 applic Ferrous Sulfate (Feosol -) 325 mg PO DAILY [facility] Hydralazine HCl (Apresoline -) 50 mg PO TID [facility] Last Admin: 01/21/18 06:00 Dose: 50 mg Piperacillin Sod/Tazobactam (Sod 3.375 gm/ Dextrose) 50 mls @ 100 mls/hr IVPB Q6H-IV [facility]; Protocol Last Admin: 01/21/18 08:36 Dose: 100 mls/hr Insulin Aspart (Novolog Vial Sliding Scale -) 1 vial SQ ACHS [facility]; Protocol Last Admin: 01/21/18 06:58 Dose: Not Given Metoprolol Succinate (Toprol Xl -) 25 mg PO DAILY [facility] Last Admin: 01/21/18 09:35 Dose: 25 mg Mupirocin (Bactroban Ointment (For Decolonization) -) 1 applic NS BID [facility] Stop: 01/24/18 21:59 Last Admin: 01/21/18 09:35 Dose: 1 applic - Objective Vital Signs: Vital Signs Temperature 99.6 F 01/21/18 10:00 Pulse Rate 76 01/21/18 10:00 Respiratory Rate 18 01/21/18 10:00 Blood Pressure 170/56 01/21/18 10:00 O2 Sat by Pulse Oximetry (%) 99 01/21/18 08:00 Comfortable not in distress HEENT: MM moist, anemia, PERRLA, EOMI NECK: Supple No JVd No Bruit CHEST: Non tender Left LL crepts + CVS: S1S2 R SM in AA no /g/r ABD: No distention non tender Bs + EXT: No Edema feet no calf tenderness, pulses + PATIENT ASSESSMENT COORDINATOR: AOx3 non focal, Rt hemifacial spasms. Labs: CBC, BMP 01/21/18 05:30 01/21/18 05:30 INR, PTT INR 1.11 (0.83-1.09) H 01/19/18 09:00 Problem List - Problems (1) Lower gastrointestinal bleed Assessment/Plan: No active bleeding after H/H stable after transfusion GI consult advanced Diet F /U H/H observe clinically Code(s): K92.2 - GASTROINTESTINAL HEMORRHAGE, UNSPECIFIED (2) Anemia due to gastrointestinal blood loss Assessment/Plan: Recurrent lower GI bleed after Polypectomy during previous Hospitalization A needs Iron supplement Code(s): D50.0 - IRON DEFICIENCY ANEMIA SECONDARY TO BLOOD LOSS (CHRONIC) (3) CKD stage 4 due to type 2 diabetes mellitus Assessment/Plan: Renal functions are at base line. Code(s): E11.22 - TYPE 2 DIABETES MELLITUS W DIABETIC CHRONIC KIDNEY DISEASE; N18.4 - CHRONIC KIDNEY DISEASE, STAGE 4 (SEVERE) (4) Pacemaker Assessment/Plan: Due to Sa node dysfunction evaluated during previous Hospitalization. Code(s): Z95.0 - PRESENCE OF CARDIAC PACEMAKER (5) HTN (hypertension) Assessment/Plan: Well controlled will hold BP meds as BP IS BORDERLINE Code(s): I10 - ESSENTIAL (PRIMARY) HYPERTENSION (6) History of aortic valve replacement with bioprosthetic valve Assessment/Plan: No active issue, previous ECHO SHOWS AR and MR Code(s): Z95.3 - PRESENCE OF XENOGENIC HEART VALVE (7) Thrombocytopenia Assessment/Plan: Chronic Platelet count is stable Code(s): D69.6 - THROMBOCYTOPENIA, UNSPECIFIED (8) Left lower lobe pneumonia Assessment/Plan: Post colonoscopy after Anesthesia most likely Aspiration Pneuonia, evaluated by ID on Zosyn TWBC trending down remained afebrile so far cultures , U legionella are -ve. Code(s): J18.1 - LOBAR PNEUMONIA, UNSPECIFIED ORGANISM
--- NOTE | 2018-01-21 11:33 | PN ---
Progress Note, Physician History of Present Illness: Pt is doing well. States he is feeling better. Denies shortness of breath or persistent coughing. Tmax 99.6. - Current Medication List Current Medications: Active Medications Benzocaine/Menthol (Cepacol Lozenge -) 1 each MM Q6H PRN PRN Reason: SORE THROAT Chlorhexidine Gluconate (Hibiclens For Decolonization -) 1 applic TP HS [facility] Last Admin: 01/20/18 22:32 Dose: 1 applic Ferrous Sulfate (Feosol -) 325 mg PO DAILY [facility] Last Admin: 01/21/18 10:53 Dose: 325 mg Hydralazine HCl (Apresoline -) 50 mg PO TID [facility] Last Admin: 01/21/18 06:00 Dose: 50 mg Piperacillin Sod/Tazobactam (Sod 3.375 gm/ Dextrose) 50 mls @ 100 mls/hr IVPB Q6H-IV [facility]; Protocol Last Admin: 01/21/18 08:36 Dose: 100 mls/hr Insulin Aspart (Novolog Vial Sliding Scale -) 1 vial SQ ACHS [facility]; Protocol Last Admin: 01/21/18 10:55 Dose: Not Given Metoprolol Succinate (Toprol Xl -) 25 mg PO DAILY [facility] Last Admin: 01/21/18 09:35 Dose: 25 mg Mupirocin (Bactroban Ointment (For Decolonization) -) 1 applic NS BID [facility] Stop: 01/24/18 21:59 Last Admin: 01/21/18 09:35 Dose: 1 applic - Objective Vital Signs: Vital Signs Temperature 99.6 F 01/21/18 10:00 Pulse Rate 76 01/21/18 10:00 Respiratory Rate 18 01/21/18 10:00 Blood Pressure 170/56 01/21/18 10:00 O2 Sat by Pulse Oximetry (%) 99 01/21/18 08:00 Constitutional: Yes: No Distress, Calm Cardiovascular: Yes: Regular Rate and Rhythm Respiratory: Yes: CTA Bilaterally Gastrointestinal: Yes: Normal Bowel Sounds, Soft Genitourinary: Yes: WNL Extremities: Yes: WNL Neurological: Yes: Alert, Oriented Labs: CBC, BMP 01/21/18 05:30 01/21/18 05:30 INR, PTT INR 1.11 (0.83-1.09) H 01/19/18 09:00 Problem List - Problems (1) Anemia due to gastrointestinal blood loss Code(s): D50.0 - IRON DEFICIENCY ANEMIA SECONDARY TO BLOOD LOSS (CHRONIC) (2) CKD stage 4 due to type 2 diabetes mellitus Code(s): E11.22 - TYPE 2 DIABETES MELLITUS W DIABETIC CHRONIC KIDNEY DISEASE; N18.4 - CHRONIC KIDNEY DISEASE, STAGE 4 (SEVERE) (3) GI bleed Code(s): K92.2 - GASTROINTESTINAL HEMORRHAGE, UNSPECIFIED Qualifiers: GI bleed type/associated pathology: unspecified gastrointestinal hemorrhage type Qualified Code(s): K92.2 - Gastrointestinal hemorrhage, unspecified (4) HTN (hypertension) Code(s): I10 - ESSENTIAL (PRIMARY) HYPERTENSION (5) Left lower lobe pneumonia Code(s): J18.1 - LOBAR PNEUMONIA, UNSPECIFIED ORGANISM (6) Pacemaker Code(s): Z95.0 - PRESENCE OF CARDIAC PACEMAKER (7) History of aortic valve replacement with bioprosthetic valve Code(s): Z95.3 - PRESENCE OF XENOGENIC HEART VALVE Assessment/Plan 72 y.o. male with PMH of CKD, HTN, HLD, s/p PPM and bioprosthetic AVR, and anemia who underwent EGD/Colonoscopy and polypectomies during recent hospitalization admitted with BRBPR. He underwent repeat colonoscopy and found to have active bleed in transverse colon. Overnight became short of breath, coughing, and febrile. CXR shows new pulmonary infiltrate. Lt lung PNA - Aspiration likely LGIB Anemia CKD s/p PPM s/p AVR -- pt now with decrease temp trend, Tmax 99.6 -- culture results reviewed, blood cx neg, respiratory culture no growth -- if fevers resolved, remains stable plan switch to augmentin in a.m. -- pt currently afebrile, without acute distress -- GI following case discussed cc time: 35
[2018-01-21] MEDS ORDERED: SIMETHICONE 80 MG TAB.CHEW (FP) PO PRN (14:00)
--- NOTE | 2018-01-21 14:15 | PN ---
Physical Exam: SUBJECTIVE: Patient is a 72 y/o male with a history of HTN, HLD, s/p aortic valve replacement and pacemaker who presents for rectal bleeding. Patient had no acute events overnight and has no acute complaints. Patient is hungry. OBJECTIVE: Vital Signs Temperature 99.6 F 01/21/18 10:00 Pulse Rate 89 01/21/18 12:00 Respiratory Rate 17 01/21/18 12:00 Blood Pressure 165/66 01/21/18 12:00 O2 Sat by Pulse Oximetry (%) 99 01/21/18 08:00 GENERAL: Awake, alert, and fully oriented, in no acute distress. HEAD: Normal with no signs of trauma. ENT: moist mucus membranes EYES: Pupils equal, round and reactive to light, extraocular movements intact LUNGS: Breath sounds equal, clear to auscultation bilaterally. HEART: Regular rate and rhythm, systolic murmur at left upper sternal border, radiates to carotids ABDOMEN: Soft, nontender, not distended, normoactive bowel sounds, MUSCULOSKELETAL: Normal range of motion at all joints. LOWER EXTREMITIES: 2+ dp pulses, warm, well-perfused. No calf tenderness. No peripheral edema. RECTAL: stool felt in vault, no lesions felt inside, nothing visualized on outside CBCD WBC 11.1 K/mm3 (4.0-10.0) H 01/21/18 05:30 RBC 3.01 M/mm3 (4.00-5.60) L 01/21/18 05:30 Hgb 8.2 GM/dL (11.7-16.9) L 01/21/18 05:30 Hct 24.8 % (35.4-49) L 01/21/18 05:30 MCV 82.3 fl (80-96) 01/21/18 05:30 MCHC 33.1 g/dl (32.0-35.9) 01/21/18 05:30 RDW 16.3 % (11.9-15.9) H 01/21/18 05:30 Plt Count 104 K/MM3 (134-434) L 01/21/18 05:30 MPV 8.1 fl (7.5-11.1) 01/21/18 05:30 CMP Sodium 135 mmol/L (136-145) L 01/21/18 05:30 Potassium 3.9 mmol/L (3.5-5.1) 01/21/18 05:30 Chloride 101 mmol/L (98-107) 01/21/18 05:30 Carbon Dioxide 27 mmol/L (21-32) D 01/21/18 05:30 Anion Gap 7 MMOL/L (8-16) L 01/21/18 05:30 BUN 27 mg/dL (7-18) H 01/21/18 05:30 Creatinine 2.2 mg/dL (0.7-1.3) H 01/21/18 05:30 Creat Clearance w eGFR 29.65 (>60) 01/21/18 05:30 Calcium 7.4 mg/dL (8.5-10.1) L 01/21/18 05:30 Total Bilirubin 0.5 mg/dL (0.2-1.0) 01/21/18 05:30 AST 41 U/L (15-37) H 01/21/18 05:30 ALT 41 U/L (12-78) 01/21/18 05:30 Alkaline Phosphatase 163 U/L (45-117) H D 01/21/18 05:30 Total Protein 6.6 g/dl (6.4-8.2) 01/21/18 05:30 Albumin 2.6 g/dl (3.4-5.0) L 01/21/18 05:30 Active Medications Benzocaine/Menthol (Cepacol Lozenge -) 1 each MM Q6H PRN PRN Reason: SORE THROAT Chlorhexidine Gluconate (Hibiclens For Decolonization -) 1 applic TP HS [facility] Last Admin: 01/20/18 22:32 Dose: 1 applic Ferrous Sulfate (Feosol -) 325 mg PO DAILY [facility] Last Admin: 01/21/18 10:53 Dose: 325 mg Hydralazine HCl (Apresoline -) 50 mg PO TID [facility] Last Admin: 01/21/18 13:03 Dose: 50 mg Piperacillin Sod/Tazobactam (Sod 3.375 gm/ Dextrose) 50 mls @ 100 mls/hr IVPB Q6H-IV [facility]; Protocol Last Admin: 01/21/18 08:36 Dose: 100 mls/hr Insulin Aspart (Novolog Vial Sliding Scale -) 1 vial SQ ACHS [facility]; Protocol Last Admin: 01/21/18 10:55 Dose: Not Given Metoprolol Succinate (Toprol Xl -) 25 mg PO DAILY [facility] Last Admin: 01/21/18 09:35 Dose: 25 mg Mupirocin (Bactroban Ointment (For Decolonization) -) 1 applic NS BID [facility] Stop: 01/24/18 21:59 Last Admin: 01/21/18 09:35 Dose: 1 applic ASSESSMENT/PLAN: Patient is a 72 y/o male with a history of HTN, HLD, s/p aortic valve replacement and pacemaker who presents for rectal bleeding. 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 Dobson at last visit, will make an appointment to follow up with her as an outpatient Endocrine DM - BGM ACHS - SS - A1C: 5.3 Infectious Disease PNA - new on CXR patchy left infiltrate - Zosyn day 2 - if cultures remain negative, can switch to augmentin in am - discussed with Dr. Suárez FEN - full liquids, continue today - possible soft diet tomorrow, discuss with Dr. Hackett Dispo: pending transfer to med/surg Visit type - Emergency Visit Emergency Visit: No - New Patient This patient is new to me today: No - Critical Care Critical Care patient: Yes Total Critical Care Time (in minutes): 45 Critical Care Statement: The care of this patient involved high complexity decision making to prevent further life threatening deterioration of the patient 's condition and/or to evaluate & treat vital organ system(s) failure or risk of failure.
[2018-01-21] MEDS ORDERED: EPOETIN ALFA 20,000 UNIT/1 ML VIAL SQ ONE (16:15)
--- NOTE | 2018-01-21 17:13 | PN ---
Progress Note, Physician - Current Medication List Current Medications: Active Medications Benzocaine/Menthol (Cepacol Lozenge -) 1 each MM Q6H PRN PRN Reason: SORE THROAT Chlorhexidine Gluconate (Hibiclens For Decolonization -) 1 applic TP HS [facility] Last Admin: 01/20/18 22:32 Dose: 1 applic Ferrous Sulfate (Feosol -) 325 mg PO DAILY [facility] Last Admin: 01/21/18 10:53 Dose: 325 mg Hydralazine HCl (Apresoline -) 50 mg PO TID [facility] Last Admin: 01/21/18 13:03 Dose: 50 mg Piperacillin Sod/Tazobactam (Sod 3.375 gm/ Dextrose) 50 mls @ 100 mls/hr IVPB Q6H-IV [facility]; Protocol Last Admin: 01/21/18 14:42 Dose: 100 mls/hr Insulin Aspart (Novolog Vial Sliding Scale -) 1 vial SQ ACHS [facility]; Protocol Last Admin: 01/21/18 15:51 Dose: Not Given Metoprolol Succinate (Toprol Xl -) 25 mg PO DAILY [facility] Last Admin: 01/21/18 09:35 Dose: 25 mg Mupirocin (Bactroban Ointment (For Decolonization) -) 1 applic NS BID [facility] Stop: 01/24/18 21:59 Last Admin: 01/21/18 09:35 Dose: 1 applic Simethicone (Mylicon -) 80 mg PO QID PRN PRN Reason: GAS Last Admin: 01/21/18 14:43 Dose: 80 mg - Objective Vital Signs: Vital Signs Temperature 99.6 F 01/21/18 10:00 Pulse Rate 84 01/21/18 14:00 Respiratory Rate 18 01/21/18 14:00 Blood Pressure 161/57 01/21/18 14:00 O2 Sat by Pulse Oximetry (%) 99 01/21/18 08:00 Labs: CBC, BMP 01/21/18 05:30 01/21/18 05:30 INR, PTT INR 1.11 (0.83-1.09) H 01/19/18 09:00 Problem List - Problems (1) Anemia due to gastrointestinal blood loss Code(s): D50.0 - IRON DEFICIENCY ANEMIA SECONDARY TO BLOOD LOSS (CHRONIC) (2) GI bleed Code(s): K92.2 - GASTROINTESTINAL HEMORRHAGE, UNSPECIFIED Qualifiers: GI bleed type/associated pathology: unspecified gastrointestinal hemorrhage type Qualified Code(s): K92.2 - Gastrointestinal hemorrhage, unspecified (3) CKD stage 4 due to type 2 diabetes mellitus Code(s): E11.22 - TYPE 2 DIABETES MELLITUS W DIABETIC CHRONIC KIDNEY DISEASE; N18.4 - CHRONIC KIDNEY DISEASE, STAGE 4 (SEVERE) (4) Pacemaker Code(s): Z95.0 - PRESENCE OF CARDIAC PACEMAKER (5) HTN (hypertension) Code(s): I10 - ESSENTIAL (PRIMARY) HYPERTENSION (6) Lower gastrointestinal bleed Code(s): K92.2 - GASTROINTESTINAL HEMORRHAGE, UNSPECIFIED Assessment/Plan Surgery: There is no more actice bleeding. Hematocrit is stable. still has anemia. Out of bed , tolerating feeding. Will sign off.
--- NOTE | 2018-01-21 17:47 | PN ---
Progress Note (short form) - Note Progress Note: Renal follow up for CKD Pt seen and examined in the ICU no acute complaints no sob, cp, abd pain no further bleeding or melena making urine Vital Signs Temperature 99.6 F 01/21/18 10:00 Pulse Rate 82 01/21/18 16:00 Respiratory Rate 17 01/21/18 16:00 Blood Pressure 169/63 01/21/18 16:00 O2 Sat by Pulse Oximetry (%) 99 01/21/18 08:00 Intake & Output 01/18/18 01/19/18 01/20/18 01/21/18 23:59 23:59 23:59 23:59 Intake Total 800 2618 1350 Output Total 300 2700 1900 Balance 500 -82 -550 Weight 71.214 kg 71.214 kg NAD No JVD RRR, + M CTA, no rales soft NT/ND, no rebound or guarding No LE edmea no bladder distension CBC, BMP 01/21/18 05:30 01/21/18 05:30 Current Medications Benzocaine/Menthol (Cepacol Lozenge -) 1 each MM Q6H PRN PRN Reason: SORE THROAT Chlorhexidine Gluconate (Hibiclens For Decolonization -) 1 applic TP HS [facility] Last Admin: 01/20/18 22:32 Dose: 1 applic Ferrous Sulfate (Feosol -) 325 mg PO DAILY [facility] Last Admin: 01/21/18 10:53 Dose: 325 mg Hydralazine HCl (Apresoline -) 50 mg PO TID [facility] Last Admin: 01/21/18 13:03 Dose: 50 mg Piperacillin Sod/Tazobactam (Sod 3.375 gm/ Dextrose) 50 mls @ 100 mls/hr IVPB Q6H-IV [facility]; Protocol Last Admin: 01/21/18 14:42 Dose: 100 mls/hr Insulin Aspart (Novolog Vial Sliding Scale -) 1 vial SQ ACHS [facility]; Protocol Last Admin: 01/21/18 15:51 Dose: Not Given Metoprolol Succinate (Toprol Xl -) 25 mg PO DAILY [facility] Last Admin: 01/21/18 09:35 Dose: 25 mg Mupirocin (Bactroban Ointment (For Decolonization) -) 1 applic NS BID [facility] Stop: 01/24/18 21:59 Last Admin: 01/21/18 09:35 Dose: 1 applic Simethicone (Mylicon -) 80 mg PO QID PRN PRN Reason: GAS Last Admin: 01/21/18 14:43 Dose: 80 mg 72 year old gentleman with Hx of CKD stage 4 with subnephrotic proteinuira (+ JAYDE, 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 #Acute GIB #Anemia #CKD Stage 4 with proteinuria #Abnormal SPEP #Leukocytosis with ? PNA Renal function stable at this time Hgb stable and improved s/p transfusion Will need heme work up as outpatient for abnormal SPEP Thank you Will follow Dov Crawley DO
[2018-01-21] MEDS: hydrALAZINE HCL 20 MG/ML VIAL IVPUSH SCH (20:29)
[2018-01-21] MEDS: CHLORHEXIDINE GLUCONATE 4% CLEANSER FOR DECOLONIZATION TP SCH (23:28)
[2018-01-22] MEDS ORDERED: PIPERACILLIN/TAZOBACTAM 3.375 GM VIAL IVPB ONE ×2 (01:18→10:28)
[2018-01-22] MEDS ORDERED: DEXTROSE 5%-WATER - 50 ML IVPB ONE ×2 (01:18→10:28)
[2018-01-22] MEDS: PIPERACILLIN/TAZOB 3.375 GM 3.375 GM in DEXTROSE 5%-WATER - 50 ML IVPB SCH ×2 (02:08→10:29)
[2018-01-22] MEDS: hydrALAZINE HCL 50 MG TABLET (FP) PO SCH ×3 (05:30→21:35)
[2018-01-22] MEDS ORDERED: PT OWN MED DRAWER 7, Y5N ONE (05:53)
[2018-01-22] MEDS: INSULIN SLIDING SCALE (NOVOLOG) 1 VIAL SQ SCH ×4 (07:25→21:35)
[2018-01-22 07:37] LABS: BASO % 0.3 % (0-2.0); EOS % 1.2 % (0-4.5); HEMATOCRIT 25.7 % (35.4-49); HEMOGLOBIN 8.6 GM/dL (11.7-16.9); LYMPH % 17.3 % (8-40); MCH 27.9 pg (25.7-33.7); MCHC 33.5 g/dl (32.0-35.9); MEAN CELL VOLUME 83.3 fl (80-96); MEAN PLT VOLUME 7.5 fl (7.5-11.1); MONO % 8.4 % (3.8-10.2); NEUT % 72.8 % (42.8-82.8); PLATELET COUNT 138 K/MM3 (134-434); RBC 3.09 M/mm3 (4.00-5.60); RDW 16.5 % (11.9-15.9); WHITE BLOOD COUNT 7.6 K/mm3 (4.0-10.0)
[2018-01-22 08:04] LABS: ALBUMIN 2.5 g/dl (3.4-5.0); ANION GAP 11 MMOL/L (8-16); BLOOD UREA NITROGEN 19 mg/dL (7-18); CALCIUM 7.9 mg/dL (8.5-10.1); CHLORIDE 104 mmol/L (98-107); CO2 24 mmol/L (21-32); CREATININE 2.1 mg/dL (0.7-1.3); GLUCOSE,RANDOM 85 mg/dL (74-106); PHOSPHOROUS 3.2 mg/dL (2.5-4.9); POTASSIUM 3.8 mmol/L (3.5-5.1); SGOT/AST 36 U/L (15-37); SGPT/ALT 35 U/L (12-78); SODIUM 139 mmol/L (136-145)
[2018-01-22 08:06] LABS: ALK PHOS 156 U/L (45-117); BILIRUBIN,TOTAL 0.6 mg/dL (0.2-1.0); TOT PROT 6.5 g/dl (6.4-8.2)
[2018-01-22] MEDS ORDERED: BENZOCAINE/MENTH/CETYLPYRD CL 1 EACH LOZENGE MM PRN (08:29)
[2018-01-22] MEDS ORDERED: MUPIROCIN 2% TOPICAL OINTMENT FOR DECOLONIZATION NS SCH (10:00)
[2018-01-22] MEDS: metoPROLOL SUCCINATE 25 MG TAB.SR.24H (FP) PO SCH (10:29)
[2018-01-22] MEDS: FERROUS SO4 325 MG TABLET (FP) PO SCH (10:29)
--- NOTE | 2018-01-22 12:20 | PN ---
GI Progress Note Subjective: GI ( covering Dr Chaves) : No GI complaints. Hb stable. Tolerating solids. No BM today - Objective Vital Signs: Vital Signs Temperature 98.1 F 01/22/18 10:38 Pulse Rate 91 H 01/22/18 10:38 Respiratory Rate 18 01/22/18 10:38 Blood Pressure 131/61 01/22/18 10:38 O2 Sat by Pulse Oximetry (%) 99 01/21/18 22:00 Laboratory Tests 01/21/18 01/22/18 01/22/18 05:30 06:00 06:00 Hgb 8.2 L 8.6 L BUN 19 H Constitutional: No Distress ...Auscultate: Yes: Normoactive Bowel Sounds ...Palpate: Yes: Soft, Other (nontender) Labs: CBC, BMP 01/22/18 06:00 01/22/18 06:00 INR, PTT INR 1.11 (0.83-1.09) H 01/19/18 09:00 Assessment/Plan No evidence of rebleeding. If no bleeding ensues and the Hb is stable I have no GI objections to discharge tomorrow. Problem List - Problems (1) Anemia due to acute blood loss Code(s): D62 - ACUTE POSTHEMORRHAGIC ANEMIA (2) CKD stage 4 due to type 2 diabetes mellitus Code(s): E11.22 - TYPE 2 DIABETES MELLITUS W DIABETIC CHRONIC KIDNEY DISEASE; N18.4 - CHRONIC KIDNEY DISEASE, STAGE 4 (SEVERE) (3) GI bleed Code(s): K92.2 - GASTROINTESTINAL HEMORRHAGE, UNSPECIFIED Qualifiers: GI bleed type/associated pathology: unspecified gastrointestinal hemorrhage type Qualified Code(s): K92.2 - Gastrointestinal hemorrhage, unspecified (4) Severe aortic regurgitation Code(s): I35.1 - NONRHEUMATIC AORTIC (VALVE) INSUFFICIENCY (5) Severe tricuspid regurgitation Code(s): I07.1 - RHEUMATIC TRICUSPID INSUFFICIENCY
--- NOTE | 2018-01-22 13:14 | PN ---
Progress Note, Physician Chief Complaint: The patient seen in his room. feeling well. No further bleeding. No chest pains, No shortness of breath. History of Present Illness: 72 year old gentleman with Hx of CKD stage 4 with subnephrotic proteinuira (+ JAYDE, 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 Renal functions on admission was worse than his baseline. but improving. - Current Medication List Current Medications: Active Medications Benzocaine/Menthol (Cepacol Lozenge -) 1 each MM Q6H PRN PRN Reason: SORE THROAT Chlorhexidine Gluconate (Hibiclens For Decolonization -) 1 applic TP HS [facility] Ferrous Sulfate (Feosol -) 325 mg PO DAILY [facility] Last Admin: 01/22/18 10:29 Dose: 325 mg Hydralazine HCl (Apresoline -) 50 mg PO TID [facility] Piperacillin Sod/Tazobactam (Sod 3.375 gm/ Dextrose) 50 mls @ 100 mls/hr IVPB Q6H-IV [facility]; Protocol Last Admin: 01/22/18 10:29 Dose: 100 mls/hr Insulin Aspart (Novolog Vial Sliding Scale -) 1 vial SQ ACHS [facility]; Protocol Metoprolol Succinate (Toprol Xl -) 25 mg PO DAILY [facility] Last Admin: 01/22/18 10:29 Dose: 25 mg Mupirocin (Bactroban Ointment (For Decolonization) -) 1 applic NS BID [facility] Stop: 01/24/18 21:59 Simethicone (Mylicon -) 80 mg PO QID PRN PRN Reason: GAS Last Admin: 01/21/18 14:43 Dose: 80 mg - Objective Vital Signs: Vital Signs Temperature 98.1 F 01/22/18 10:38 Pulse Rate 91 H 01/22/18 10:38 Respiratory Rate 18 01/22/18 10:38 Blood Pressure 131/61 01/22/18 10:38 O2 Sat by Pulse Oximetry (%) 99 01/21/18 22:00 Constitutional: Yes: Well Nourished, Calm Eyes: Yes: Conjunctiva Clear Neck: Yes: Trachea Midline Cardiovascular: Yes: S1, S2 Respiratory: Yes: CTA Bilaterally, Diminished Gastrointestinal: Yes: Normal Bowel Sounds, Soft Genitourinary: No: Bladder Distention, CVA Tenderness - Left, CVA Tenderness - Right Musculoskeletal: Yes: Back Pain Neurological: Yes: Alert, Oriented Labs: CBC, BMP 01/22/18 06:00 01/22/18 06:00 INR, PTT INR 1.11 (0.83-1.09) H 01/19/18 09:00 Assessment/Plan 72 year old gentleman with Hx of CKD stage 4 with subnephrotic proteinuira (+ JAYDE, 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 #Acute GI Bleeding #Anemia. From blood loss, superimposed on CKD related anemia #CKD Stage 4 with proteinuria #Abnormal SPEP. Will need outpatient w/u Renal function stable at this time. Improving towards his baseline. Hgb stable and improved s/p transfusion When discharged, will follow as outpatient. Thank you. Carli Isaacs MD
--- NOTE | 2018-01-22 13:37 | PN ---
Progress Note, Physician Chief Complaint: No fever denies any cough or SOB no new episode of bleeding - Current Medication List Current Medications: Active Medications Benzocaine/Menthol (Cepacol Lozenge -) 1 each MM Q6H PRN PRN Reason: SORE THROAT Chlorhexidine Gluconate (Hibiclens For Decolonization -) 1 applic TP HS [facility] Ferrous Sulfate (Feosol -) 325 mg PO DAILY [facility] Last Admin: 01/22/18 10:29 Dose: 325 mg Hydralazine HCl (Apresoline -) 50 mg PO TID [facility] Piperacillin Sod/Tazobactam (Sod 3.375 gm/ Dextrose) 50 mls @ 100 mls/hr IVPB Q6H-IV [facility]; Protocol Last Admin: 01/22/18 10:29 Dose: 100 mls/hr Insulin Aspart (Novolog Vial Sliding Scale -) 1 vial SQ ACHS [facility]; Protocol Metoprolol Succinate (Toprol Xl -) 25 mg PO DAILY [facility] Last Admin: 01/22/18 10:29 Dose: 25 mg Mupirocin (Bactroban Ointment (For Decolonization) -) 1 applic NS BID [facility] Stop: 01/24/18 21:59 Simethicone (Mylicon -) 80 mg PO QID PRN PRN Reason: GAS Last Admin: 01/21/18 14:43 Dose: 80 mg - Objective Vital Signs: Vital Signs Temperature 98.1 F 01/22/18 10:38 Pulse Rate 91 H 01/22/18 10:38 Respiratory Rate 18 01/22/18 10:38 Blood Pressure 131/61 01/22/18 10:38 O2 Sat by Pulse Oximetry (%) 99 01/21/18 22:00 Comfortable not in distress HEENT: MM moist, anemia, PERRLA, EOMI NECK: Supple No JVd No Bruit CHEST: Non tender Left LL crepts + CVS: S1S2 R SM in AA no /g/r ABD: No distention non tender Bs + EXT: No Edema feet no calf tenderness, pulses + LACE INSPECTOR: AOx3 non focal, Rt hemifacial spasms. Labs: CBC, BMP 01/22/18 06:00 01/22/18 06:00 INR, PTT INR 1.11 (0.83-1.09) H 01/19/18 09:00 Problem List - Problems (1) Lower gastrointestinal bleed Assessment/Plan: No active bleeding after H/H stable after transfusion GI consult advanced Diet F /U H/H observe clinically Code(s): K92.2 - GASTROINTESTINAL HEMORRHAGE, UNSPECIFIED (2) Anemia due to gastrointestinal blood loss Assessment/Plan: Recurrent lower GI bleed after Polypectomy during previous Hospitalization needs Iron supplement Code(s): D50.0 - IRON DEFICIENCY ANEMIA SECONDARY TO BLOOD LOSS (CHRONIC) (3) CKD stage 4 due to type 2 diabetes mellitus Assessment/Plan: Renal functions are at base line. Code(s): E11.22 - TYPE 2 DIABETES MELLITUS W DIABETIC CHRONIC KIDNEY DISEASE; N18.4 - CHRONIC KIDNEY DISEASE, STAGE 4 (SEVERE) (4) Pacemaker Assessment/Plan: Due to Sa node dysfunction evaluated during previous Hospitalization. Code(s): Z95.0 - PRESENCE OF CARDIAC PACEMAKER (5) HTN (hypertension) Assessment/Plan: Well controlled will hold BP meds as BP IS BORDERLINE Code(s): I10 - ESSENTIAL (PRIMARY) HYPERTENSION (6) History of aortic valve replacement with bioprosthetic valve Assessment/Plan: No active issue, previous ECHO SHOWS AR and MR Code(s): Z95.3 - PRESENCE OF XENOGENIC HEART VALVE (7) Thrombocytopenia Assessment/Plan: Chronic Platelet count is stable Code(s): D69.6 - THROMBOCYTOPENIA, UNSPECIFIED (8) Left lower lobe pneumonia Assessment/Plan: Zosyn day 4 th remained afebrile will switch to Augmentin 500 mg BID Code(s): J18.1 - LOBAR PNEUMONIA, UNSPECIFIED ORGANISM
--- NOTE | 2018-01-22 16:25 | PN ---
Progress Note, Physician History of Present Illness: Pt doing well. Transferred out of ICU. No recent episodes of bleeding. Denies SOB/cough, is afebrile. - Current Medication List Current Medications: Active Medications Amoxicillin/Clavulanate Potassium (Augmentin - 500mg Tablet) 1 tab PO BID@0800, 1730 [facility] Benzocaine/Menthol (Cepacol Lozenge -) 1 each MM Q6H PRN PRN Reason: SORE THROAT Ferrous Sulfate (Feosol -) 325 mg PO DAILY [facility] Last Admin: 01/22/18 10:29 Dose: 325 mg Hydralazine HCl (Apresoline -) 50 mg PO TID [facility] Last Admin: 01/22/18 15:50 Dose: 50 mg Insulin Aspart (Novolog Vial Sliding Scale -) 1 vial SQ ACHS [facility]; Protocol Last Admin: 01/22/18 14:18 Dose: Not Given Metoprolol Succinate (Toprol Xl -) 25 mg PO DAILY [facility] Last Admin: 01/22/18 10:29 Dose: 25 mg Simethicone (Mylicon -) 80 mg PO QID PRN PRN Reason: GAS Last Admin: 01/21/18 14:43 Dose: 80 mg - Objective Vital Signs: Vital Signs Temperature 98.2 F 01/22/18 14:37 Pulse Rate 92 H 01/22/18 14:37 Respiratory Rate 20 01/22/18 14:37 Blood Pressure 167/72 01/22/18 14:37 O2 Sat by Pulse Oximetry (%) 99 01/21/18 22:00 Constitutional: Yes: No Distress, Calm Neck: Yes: Supple Cardiovascular: Yes: Regular Rate and Rhythm Respiratory: Yes: Regular Gastrointestinal: Yes: Normal Bowel Sounds, Soft Extremities: Yes: WNL Neurological: Yes: Alert, Oriented Labs: CBC, BMP 01/22/18 06:00 01/22/18 06:00 INR, PTT INR 1.11 (0.83-1.09) H 01/19/18 09:00 Problem List - Problems (1) Anemia due to gastrointestinal blood loss Code(s): D50.0 - IRON DEFICIENCY ANEMIA SECONDARY TO BLOOD LOSS (CHRONIC) (2) CKD stage 4 due to type 2 diabetes mellitus Code(s): E11.22 - TYPE 2 DIABETES MELLITUS W DIABETIC CHRONIC KIDNEY DISEASE; N18.4 - CHRONIC KIDNEY DISEASE, STAGE 4 (SEVERE) (3) GI bleed Code(s): K92.2 - GASTROINTESTINAL HEMORRHAGE, UNSPECIFIED Qualifiers: GI bleed type/associated pathology: unspecified gastrointestinal hemorrhage type Qualified Code(s): K92.2 - Gastrointestinal hemorrhage, unspecified (4) HTN (hypertension) Code(s): I10 - ESSENTIAL (PRIMARY) HYPERTENSION (5) Left lower lobe pneumonia Code(s): J18.1 - LOBAR PNEUMONIA, UNSPECIFIED ORGANISM (6) Pacemaker Code(s): Z95.0 - PRESENCE OF CARDIAC PACEMAKER (7) History of aortic valve replacement with bioprosthetic valve Code(s): Z95.3 - PRESENCE OF XENOGENIC HEART VALVE Assessment/Plan 72 y.o. male with PMH of CKD, HTN, HLD, s/p PPM and bioprosthetic AVR, and anemia who underwent EGD/Colonoscopy and polypectomies during recent hospitalization admitted with BRBPR. He underwent repeat colonoscopy and found to have active bleed in transverse colon. Overnight became short of breath, coughing, and febrile. CXR shows new pulmonary infiltrate. Lt lung PNA - Aspiration LGIB - no recent episodes Anemia CKD s/p PPM s/p AVR -- switch to Augmentin po -- pt currently afebrile, without acute distress -- GI following case discussed
[2018-01-22] MEDS: AMOX TR/POT CLAV 500MG/125MG TABLETS (FP) PO SCH (17:22)
[2018-01-22] MEDS ORDERED: CHLORHEXIDINE GLUCONATE 4% CLEANSER FOR DECOLONIZATION TP SCH (22:00)
[2018-01-23] MEDS: hydrALAZINE HCL 50 MG TABLET (FP) PO SCH (05:55)
[2018-01-23] MEDS: INSULIN SLIDING SCALE (NOVOLOG) 1 VIAL SQ SCH (06:11)
[2018-01-23] MEDS ORDERED: INSULIN (NOVOLOG) ASPART 100 UNITS/ML 10ML VIAL ONE (06:39)
[2018-01-23 07:21] LABS: BASO % 0.4 % (0-2.0); EOS % 1.2 % (0-4.5); HEMATOCRIT 26.1 % (35.4-49); HEMOGLOBIN 8.5 GM/dL (11.7-16.9); LYMPH % 26.6 % (8-40); MCH 27.4 pg (25.7-33.7); MCHC 32.8 g/dl (32.0-35.9); MEAN CELL VOLUME 83.6 fl (80-96); MEAN PLT VOLUME 7.4 fl (7.5-11.1); MONO % 9.6 % (3.8-10.2); NEUT % 62.2 % (42.8-82.8); PLATELET COUNT 156 K/MM3 (134-434); RBC 3.12 M/mm3 (4.00-5.60); RDW 16.6 % (11.9-15.9); RETICULOCYTES 3.06 % (0.5-1.5); WHITE BLOOD COUNT 6.8 K/mm3 (4.0-10.0)
[2018-01-23 08:33] LABS: ALBUMIN 2.5 g/dl (3.4-5.0); ALK PHOS 157 U/L (45-117); ANION GAP 11 MMOL/L (8-16); BILIRUBIN,TOTAL 0.4 mg/dL (0.2-1.0); BLOOD UREA NITROGEN 17 mg/dL (7-18); CALCIUM 7.9 mg/dL (8.5-10.1); CHLORIDE 103 mmol/L (98-107); CO2 24 mmol/L (21-32); CREATININE 2.2 mg/dL (0.7-1.3); GLUCOSE,RANDOM 88 mg/dL (74-106); POTASSIUM 3.6 mmol/L (3.5-5.1); SGOT/AST 34 U/L (15-37); SGPT/ALT 32 U/L (12-78); SODIUM 138 mmol/L (136-145); TOT PROT 6.3 g/dl (6.4-8.2)
[2018-01-23] MEDS ORDERED: PT OWN MED DRAWER 7, Y5N ONE (08:37)
[2018-01-23] MEDS: AMOX TR/POT CLAV 500MG/125MG TABLETS (FP) PO SCH (08:41)
[2018-01-23 09:21] VITALS: BP 144/67; PULSE 59; TEMP 98.1
[2018-01-23] MEDS: FERROUS SO4 325 MG TABLET (FP) PO SCH (10:38)
[2018-01-23] MEDS: metoPROLOL SUCCINATE 25 MG TAB.SR.24H (FP) PO SCH (10:38)
--- NOTE | 2018-01-23 10:47 | PN ---
GI Progress Note Subjective: GI NOte ( covering Dr Chaves) Had brown BM. Hb stable - Objective Vital Signs: Vital Signs Temperature 98.1 F 01/23/18 09:00 Pulse Rate 59 L 01/23/18 09:00 Respiratory Rate 18 01/23/18 09:00 Blood Pressure 144/67 01/23/18 09:00 O2 Sat by Pulse Oximetry (%) 99 01/22/18 20:39 Laboratory Tests 01/22/18 01/23/18 06:00 06:00 Hgb 8.6 L 8.5 L ...Auscultate: Yes: Normoactive Bowel Sounds ...Palpate: Yes: Soft, Other (nontender) Labs: CBC, BMP 01/23/18 06:00 01/23/18 06:00 INR, PTT INR 1.11 (0.83-1.09) H 01/19/18 09:00 Problem List - Problems (1) Anemia due to acute blood loss Assessment/Plan: No GI objections to discharge Code(s): D62 - ACUTE POSTHEMORRHAGIC ANEMIA (2) CKD stage 4 due to type 2 diabetes mellitus Code(s): E11.22 - TYPE 2 DIABETES MELLITUS W DIABETIC CHRONIC KIDNEY DISEASE; N18.4 - CHRONIC KIDNEY DISEASE, STAGE 4 (SEVERE) (3) GI bleed Code(s): K92.2 - GASTROINTESTINAL HEMORRHAGE, UNSPECIFIED Qualifiers: GI bleed type/associated pathology: unspecified gastrointestinal hemorrhage type Qualified Code(s): K92.2 - Gastrointestinal hemorrhage, unspecified (4) Severe aortic regurgitation Code(s): I35.1 - NONRHEUMATIC AORTIC (VALVE) INSUFFICIENCY (5) Severe tricuspid regurgitation Code(s): I07.1 - RHEUMATIC TRICUSPID INSUFFICIENCY
--- NOTE | 2018-01-23 13:55 | PN ---
Progress Note, Physician Chief Complaint: The patient seen in his room. Feeling well. No further bleeding. No chest pains, No shortness of breath. Says he may be going home. History of Present Illness: 72 year old gentleman with Hx of CKD stage 4 with subnephrotic proteinuira (+ JAYDE, 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 Renal functions on admission was worse than his baseline, but improving. Today serum Cr 2.2 - Objective Vital Signs: Vital Signs Temperature 98.1 F 01/23/18 09:00 Pulse Rate 59 L 01/23/18 09:00 Respiratory Rate 18 01/23/18 09:00 Blood Pressure 144/67 01/23/18 09:00 O2 Sat by Pulse Oximetry (%) 99 01/23/18 09:00 Constitutional: Yes: Calm, Pallor Eyes: Yes: Conjunctiva Clear HENT: Yes: Normocephalic Cardiovascular: Yes: Regular Rate and Rhythm, S1, S2 Respiratory: Yes: CTA Bilaterally Gastrointestinal: Yes: Normal Bowel Sounds, Soft Edema: No Neurological: Yes: Alert, Oriented Labs: CBC, BMP 01/23/18 06:00 01/23/18 06:00 INR, PTT INR 1.11 (0.83-1.09) H 01/19/18 09:00 Assessment/Plan 72 year old gentleman with Hx of CKD stage 4 with subnephrotic proteinuira (+ JAYDE, 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 #Acute GI Bleeding #Anemia. From blood loss, superimposed on CKD related anemia #CKD Stage 4 with proteinuria #Abnormal SPEP. Will need outpatient w/u Renal function stable at this time. Improving towards his baseline. Hgb stable and improved s/p transfusion The patient being discharged. Will follow as outpatient. Thank you. Carli Isaacs MD
== END 2018-01-23 12:25 | disposition home or self-care (01) | DRG 377 ==
LOC: JER 08:05 → JERBED 10:57 → JICU 12:07 → J7W 01-21 22:41
PROVIDERS: ADMIT Internal Medicine; ATTEND Internal Medicine
PROC: 0W3P8ZZ Control Bleeding in Gastrointestinal Tract, Via Natural or Artificial Opening Endoscopic (ICD-10-PCS; principal; 2018-01-20)
PROC: 30233N1 Transfusion of Nonautologous Red Blood Cells into Peripheral Vein, Percutaneous Approach (ICD-10-PCS; 2018-01-20)
DX: K92.2 Gastrointestinal hemorrhage, unspecified (principal); J69.0 Pneumonitis due to inhalation of food and vomit; N18.4 Chronic kidney disease, stage 4 (severe); D62 Acute posthemorrhagic anemia; E11.22 Type 2 diabetes mellitus with diabetic chronic kidney disease; I12.9 Hypertensive chronic kidney disease with stage 1 through stage 4 chronic kidney disease, or unspecified chronic kidney disease; E78.5 Hyperlipidemia, unspecified; Z87.891 Personal history of nicotine dependence; Z95.0 Presence of cardiac pacemaker; E11.21 Type 2 diabetes mellitus with diabetic nephropathy; Z95.3 Presence of xenogenic heart valve; D69.6 Thrombocytopenia, unspecified
CPT/HCPCS: 36415; 36430; 71045-TC-FY; 80048; 80053; 81003; 81015; 82272; 82436; 82570; 82962; 82977; 83036; 83735; 84100; 84133; 84156; 84300; 85025; 85027; 85044; 85610; 86850; 86900; 86901; 86922; 87040; 87070; 87205; 87899; 93005; 93010; 94010; 94640; 99284-25; G0480; J0131; J0885; P9038; P9058

== ENCOUNTER 2018-02-07 10:53 | Day surgery (SDC) | payer OTHER ==
[2018-02-04 14:26] VITALS: BMI 21.7
[2018-02-07 11:36] VITALS: TEMP 98.2
[2018-02-07] MEDS ORDERED: LIDOCAINE VISCOUS 2% ORAL/TOP 20 ML UNIT-DOSE CUP ONE (11:55)
[2018-02-07 13:52] VITALS: PULSE 76
[2018-02-07 15:34] VITALS: BP 158/56
--- NOTE | 2018-02-07 19:27 | ECHO ---
Name: JACOB, SERGE Exam:Transesophageal Echocardiogram Study Date: 02/07/2018 12:50 PM Age: 72 yrs Reason For Study: REGURGE Height: 69 in Weight: 147 lb BSA: 1.8 m2 Procedure: A 2D transesophageal echocardiogram with color flow Doppler was performed. Informed consent for Transesophageal Echocardiogram, and use of a contrast agent as needed, was obtained prior to the proc edure. The patient was brought to the endoscopy suite in a fasting state. An intravenous line was placed. A topical anesthetic agent was used for oropharangeal anesthesia. A bite block was inserted. IV concious sedati on was administered using propafol. A multifrequency, multiplane transesopheageal echocardiographic endoscop e was inserted and manipulated in the standard fashion to achieve multiplane views. The usual views were ob tained; basal, mid-esophageal, transgastric and aortic views. The patient's vital signs, including blood pres sure, heart rate, pulse oximetry and cardiac rhythm were monitored throughout the procedure and remained st able. The patient tolerated the procedure well without evidence of orophangeal or esophageal trauma. There were no complications. Left Ventricle The left ventricle is normal in size. Left ventricular systolic function is normal. No regional wall motion abnormalities noted. Right Ventricle There is a pacemaker lead in the right ventricle. Atria The left atrial size is normal. No thrombus is detected in the left atrial appendage. No left atrial mass or thrombus visualized. The interatrial septum is intact with no evidence for an atrial septal defect. I njection of contrast documented no interatrial shunt. Mitral Valve The mitral valve leaflets appear normal. There is no evidence of stenosis, fluttering, or prolapse. T here is mild mitral regurgitation. Tricuspid Valve The tricuspid valve is not well visualized. There is mild tricuspid regurgitation. Aortic Valve There is a bioprosthetic aortic valve. The prosthetic aortic valve is well-seated. The prosthetic aor tic valve appears to open well. Severe aortic regurgitation. There is an eccentric jet of aortic insufficiency directed against the septum. Pulmonic Valve The pulmonic valve is not well visualized. Great Vessels No significant atherosclerotic plaque in thoracic aorta or aortic arch. Pericardium/Pluera There is no pericardial effusion. Interpretation Summary The left ventricle is normal in size. Left ventricular systolic function is normal. No regional wall motion abnormalities noted. There is a pacemaker lead in the right ventricle. The left atrial size is normal. No thrombus is detected in the left atrial appendage. No left atrial mass or thrombus visualized. The interatrial septum is intact with no evidence for an atrial septal defect. Injection of contrast documented no interatrial shunt. There is mild mitral regurgitation. There is mild tricuspid regurgitation. There is a bioprosthetic aortic valve. The prosthetic aortic valve is well-seated. The prosthetic aortic valve appears to open well. Severe aortic regurgitation. There is an eccentric jet of aortic insufficiency directed against the septum. No significant atherosclerotic plaque in thoracic aorta or aortic arch There is no pericardial effusion. Oscar Tomlinson MD 02/07/2018 07:27 PM
== END 2018-02-07 14:25 | disposition home or self-care (01) ==
LOC: JASU-ENDO 10:53
PROVIDERS: ATTEND Internal Medicine Cardiovascular Disease
PROC: B246ZZ4 Ultrasonography of Right and Left Heart, Transesophageal (ICD-10-PCS; principal; 2018-02-07 12:00)
DX: I35.1 Nonrheumatic aortic (valve) insufficiency (principal)
CPT/HCPCS: 93312; 93325